=== PATIENT | female | born 1945 | race Caucasian/White ===

== ENCOUNTER 2017-11-26 16:41 | Emergency (ER) | payer MEDICARE, OTHER ==
[~2017-11-26] VITALS: Ht 167.6 cm; Wt 93.4 kg
[~2017-11-26 16:41] MED LIST: CLONAZEPAM0.5 MG PO; DEXILANT60 MG PO; FLEXERIL10 MG PO; LISINOPRIL10 MG PO; NEXIUM40 MG PO; SUCRALFATE1 GM PO; TEGRETOL100 MG PO; TEGRETOL200 MG PO
--- OUTSIDE RECORDS SUMMARY | 2017-11-26 16:45 | XMS REPORT | Summary of Care ---
Author Author JEFF Seo, ALEKS Organization Unknown Address Unknown Phone Unavailable Care Team Providers Care Benefit Authorizer Name Role Phone ALEKS HOUSTON M.D. Unavailable Unavailable VEE MÉNEDZ Unavailable Unavailable Aleks Houston MD Unavailable Unavailable Unavailable Unavailable Functional Status Name Dates Details Functional status health issues are not documented Status: Name Dates Details Cognitive status health issues are not documented Status: Problems Name Dates Details History of hypertension (V12.59, Z86.79) Status: Active Cancer screening (V76.9, Z12.9) Status: Active Multiple gastric polyps (211.1, K31.7) Status: Active Colon cancer screening (V76.51, Z12.11) Status: Active Indigestion (536.8, K30) Status: Active Acute gastroenteritis (558.9, K52.9) Status: Active Esophageal stricture (530.3, K22.2) Status: Active Hiatal hernia (553.3, K44.9) Status: Active Genitourinary symptoms (788.99, R39.9) Status: Active Skin neoplasm (239.2, D49.2) Status: Active Anxiety (300.00, F41.9) Status: Active Tachycardia (785.0, R00.0) Status: Active Elevated blood pressure reading without diagnosis of hypertension (796.2, R03.0 ) Status: Active Dislocated knee (836.50, S83.106A) Status: Active Urinary tract infection (599.0, N39.0) Status: Active Flu vaccine need (V04.81, Z23) Status: Active Need for Streptococcus pneumoniae vaccination (V03.82, Z23) Status: Active Bilateral breast cysts (610.0, N60.01) Status: Active Visit for screening mammogram (V76.12, Z12.31) Status: Active Need for influenza vaccination (V04.81, Z23) Status: Active Well female exam with routine gynecological exam (V72.31, Z01.419) Status: Active Vaginal discharge (623.5, N89.8) Status: Active Abdominal pain, chronic, bilateral lower quadrant (789.03, R10.31) Status: Active Controlled type 2 diabetes mellitus without complication (250.00, E11.9) Status: Active Elevated liver enzymes (790.5, R74.8) Status: Active Cough (786.2, R05) Status: Active Influenza A (H5N1) (488.02, J09.X2) Status: Active Allergic bronchitis (493.90, J45.909) Status: Active UTI symptoms (788.99, R39.9) Status: Active Insomnia (780.52, G47.00) Status: Active Osteoporosis (733.00, M81.0) Status: Active Back pain (724.5, M54.9) Status: Active Dysuria (788.1, R30.0) Status: Active Sea sickness (994.6, T75.3XXA) Status: Active Obesity (BMI 30-39.9) (278.00, E66.9) Status: Active Medications Name Dates Details Lisinopril 20 MG Oral Tablet TAKE 1 TABLET DAILY FOR BLOOD PRESSURE. Quantity: 90 ALEKS HOUSTON M.D. * Start : 20-Dec-2016 Active 90 Tablet Bottle Zolpidem Tartrate 10 MG Oral Tablet TAKE 1 TABLET AT BEDTIME NEEDED FOR SLEEP. * Quantity: 30 Refills: 2 ALEKS HOUSTON M.D. * Start : 20-Dec-2016 Active Dexilant 60 MG Oral Capsule Delayed Release take 1 pill bid * Refills: 0 * Start : 20-Dec-2016 Active Hyoscyamine Sulfate 0.125 MG Sublingual Tablet Sublingual DISSOLVE 1 TABLET UNDER THE TONGUE THREE TIMES DAILY NEEDED * Quantity: 30 Refills: 0 ALEKS HOUSTON M.D. * Start : 21-May-2017 Active Phenazopyridine HCl TABS * Refills: 0 Active ALPRAZolam 0.25 MG Oral Tablet 1/2 to 1 1 PO BID PRN ANXIETY * Quantity: 15 Refills: 0 CAMILA VEE Pollard * Start : 22-Feb-2017 Active Vitamin D CAPS * Refills: 0 Active Promethazine-Codeine 6.25-10 MG/5ML Oral Syrup 5ml every 4 to 6 hours for severe cough * Quantity: 240 Refills: 0 ALEKS HOUSTON M.D. * Start : 05-Apr-2017 Active Scopolamine 1 MG/3DAYS Transdermal Patch 72 Hour APPLY 1 PATCH EVERY 3 DAYS * Quantity: 1 Refills: 0 ALEKS HOUSTON M.D. * Start : 26-Apr-2017 Active 4 Patch Box Nitrofurantoin Monohyd Macro 100 MG Oral Capsule TAKE 1 CAPSULE TWICE DAILY UNTIL GONE. * Quantity: 20 Refills: 1 ALEKS HOUSTON M.D. * Start : 18-Jun-2017 End : 13-Nov-2017 Active TraMADol HCl - 50 MG Oral Tablet TAKE 1 TABLET TWICE DAILY NEEDED. * Quantity: 30 Refills: 1 ALEKS HOUSTON M.D. * Start : 09-Oct-2017 Active Nortriptyline HCl - 25 MG Oral Capsule TAKE 1 OR 2 CAPSULE IN EVENING OR AT BEDTIME. * Quantity: 30 Refills: 0 ALEKS HOUSTON M.D. * Start : 09-Oct-2017 Active Estradiol 0.1 MG/GM Vaginal Cream APPLY A PEA-SIZED AMOUNT TO VAGINAL OPENING EVERY SUNDAY, SUNDAY, AND SUNDAY EVENING. * Quantity: 1 Refills: 2 ALEKS HOUSTON M.D. * Start : 12-Oct-2017 Active 42.5 GM Tube Allergies and Adverse Reactions Name Dates Details Sulfa Drugs (Allergy) Status: Active Past Medical History Name Dates Details History of gastritis (V12.79, Z87.19) Status: Resolved History of hypertension (V12.59, Z86.79) Status: Resolved History of insomnia (V13.89, Z87.898) Status: Resolved Procedures Procedure Dates Details [QL] PTH, INTACT (WITHOUT CALCIUM) Date: 12-Oct-2017 History of Appendectomy Completed History of Tonsillectomy Completed History of Hysterectomy Completed History of Gallbladder surgery Completed History of Gastric bypass surgery Completed Immunization Name Dates Details Fluzone Quadrivalent 0.5 ML Intramuscular Suspension Prefilled Syringe Lot #: [id number] on: 26-Jul-2017 Prevnar 13 Intramuscular Suspension Lot #: [id number] on: 26-Jul-2017 Family History Name Dates Details Family history of hyperparathyroidism (V18.19, Z83.49) Status: Active Name Dates Details Family history of hyperparathyroidism (V18.19, Z83.49) Status: Active Name Dates Details Family history of alcoholism (V17.0, Z81.1) Status: Active Name Dates Details Family history of hyperparathyroidism (V18.19, Z83.49) Status: Active Name Dates Details Family history of diabetes mellitus (V18.0, Z83.3) Status: Active Social History Name Dates Details - Status: Name Dates Details Never smoker Vital Signs Date Test Result Details :39 BP Systolic 147 mm[Hg] Status: Comments: Location: LUE; Position: Sitting BP Diastolic 97 mm[Hg] Status: Comments: Location: LUE; Position: Sitting Height 64 in Status: Weight 225 lb Status: Body Mass Index Calculated 38.62 kg/m2 Status: Body Surface Area Calculated 2.06 m2 Status: Heart Rate 120 /min Status: Temperature 97.2 f Status: Comments: Method: Temporal Respiration Rate 16 /min Status: [id number] BP Systolic 157 mm[Hg] Status: Comments: Location: LUE; Position: Sitting BP Diastolic 96 mm[Hg] Status: Comments: Location: LUE; Position: Sitting Height 64 in Status: Weight 226 lb Status: Body Mass Index Calculated 38.79 kg/m2 Status: Body Surface Area Calculated 2.06 m2 Status: Heart Rate 113 /min Status: Temperature 97.6 f Status: Comments: Method: Temporal Respiration Rate 16 /min Status: Results Date Description Value Details :00 [[facility]] CULTURE, URINE, ROUTINE Urine Culture, Routine Final report Result 1 Comments: Mixed urogenital flora10,000-25,000 colony forming units per mL Plan of Care Name Dates Details Planned Observations Planned Goals not documented Interventions Provided Medication Changes* Zolpidem Tartrate 10 MG Oral Tablet - Renew Instructions Name Dates Details Instructions not documented Encounters Appointment; ALEKS HOUSTON M.D. Encounter Diagnosis: Problem not documented On: 20-Dec-2016 14:30 Appointment; ALEKS HOUSTON M.D. Encounter Diagnosis: Problem not documented On: 03-Jan-2017 13:30 Appointment; ALEKS HOUSTON M.D. Encounter Diagnosis: Problem not documented On: 07-Feb-2017 14:45 Appointment; VEE JENSEN P.A. Encounter Diagnosis: Problem not documented On: 22-Feb-2017 13:30 Appointment; VEE JNESEN P.A. Encounter Diagnosis: Problem not documented On: 28-Feb-2017 14:00 Appointment; ALEKS HOUSTON M.D. Encounter Diagnosis: Problem not documented On: 05-Apr-2017 13:00 Appointment; ALEKS HOUSTON M.D. Encounter Diagnosis: Problem not documented On: 26-Apr-2017 15:30 Appointment; ALEKS HOUSTON M.D. Encounter Diagnosis: Problem not documented On: 08-May-2017 15:30 Appointment; ALEKS HOUSTON M.D. Encounter Diagnosis: Problem not documented On: 18-Jun-2017 15:00 Appointment; ALEKS HOUSTON M.D. Encounter Diagnosis: Problem not documented On: 26-Jul-2017 12:15 Appointment; RG BARNES NP Encounter Diagnosis: Problem not documented On: 07-Aug-2017 14:15 Appointment; ALEKS HOUSTON M.D. Encounter Diagnosis: Problem not documented On: 17-Aug-2017 15:30 Appointment; ALEKS HOUSTON M.D. Encounter Diagnosis: Problem not documented On: 12-Sep-2017 15:30 Appointment; ALEKS HOUSTON M.D. Encounter Diagnosis: Problem not documented On: 09-Oct-2017 15:30 Appointment; ALEKS HOUSTON M.D. Encounter Diagnosis: Problem not documented On: 12-Oct-2017 15:00 Appointment; ALEKS HOUSTON M.D. Encounter Diagnosis: Problem not documented On: 24-Oct-2017 15:30
[2017-11-26] MEDS ORDERED: ASPIRIN 81 MG CHEW TAB PO ONE (17:30)
[2017-11-26 22:01] LABS: HEMATOCRIT 43.4 % (34.2-44.1); HEMOGLOBIN 14.9 g/dL (12.0-16.0); MEAN CORPUSCULAR HEMOGLOBIN 31.3 pg (28-32); MEAN CORPUSCULAR HGB CONC 34.3 g/dL (31-35); MEAN CORPUSCULAR VOLUME 91.2 fL (81-99); NEUTROPHILS % 6.4 % (38.7-80.0); PLATELET COUNT 250 x10e3/uL (140-360); RED BLOOD COUNT 4.76 x10e6/uL (3.6-5.1); RED CELL DISTRIBUTION WIDTH 12.9 % (11.7-14.4)
[2017-11-26 22:02] LABS: BASOPHILS % 0.1 % (0.0-1.0); EOSINOPHILS % 0.2 % (0.0-6.0); INR 1.14; MONOCYTES % 0.7 % (4.4-11.3); PARTIAL THROMBOPLASTIN TIME 26.3 seconds (23.8-35.5); PROTHROMBIN TIME 13.7 seconds (11.9-14.5)
[2017-11-26 22:03] LABS: ANION GAP 13.2 mmol/L (8-16); BILIRUBIN,URINE NEGATIVE (NEGATIVE); BLOOD UREA NITROGEN 11 mg/dL (7-26); BUN/CREATININE RATIO 14 (6-25); CARBON DIOXIDE 24 mmol/L (22-29); CHLORIDE 109 mmol/L (98-107); CLARITY,URINE CLEAR (CLEAR); COLOR,URINE YELLOW (YELLOW); CREATININE, SERUM 0.78 mg/dL (0.57-1.11); EPITHELIAL CELLS,URINE MODERATE /LPF; EST GLOMERULAR FILTRATION RATE > 60 ML/MIN (60-); GLUCOSE 136 mg/dL (74-118); KETONES,URINE NEGATIVE (NEGATIVE); LEUKOCYTE ESTERASE ,URINE NEGATIVE (NEGATIVE); NITRITE,URINE NEGATIVE (NEGATIVE); POTASSIUM 4.2 mmol/L (3.5-5.1); PROTEIN,URINE DIPSTICK NEGATIVE (NEGATIVE); SODIUM 142 mmol/L (136-145); URINE UROBILINOGEN 0.2 mg/dL (0.2 - 1)
[2017-11-26 22:04] LABS: ALANINE AMINOTRANSFERASE 75 IU/L (0-55); ALBUMIN 4.3 g/dL (3.5-5.0); ALBUMIN/GLOBULIN RATIO 1.5 (0.8-2.0); ALKALINE PHOSPHATASE 99 IU/L (40-150); CALCIUM 9.9 mg/dL (8.4-10.2); CREATINE KINASE 35 IU/L (29-168)
--- NOTE | 2017-11-26 23:02 | Diagnostic Imaging Report ---
EXAM: CHEST SINGLE (PORTABLE), AP 1 view INDICATION: Chest pain COMPARISON: None FINDINGS: LINES/TUBES: None LUNGS: No consolidations or edema. PLEURA: No effusions or pneumothorax. HEART AND MEDIASTINUM: Normal size and contour. BONES AND SOFT TISSUES: No acute findings. IMPRESSION: No acute thoracic abnormality. Signed by: Dr. Mere Vanegas M.D. on 11/26/2017 10:58 PM
== END 2017-11-26 20:57 | disposition home or self-care (01) ==
LOC: ER 16:41
DX: R42 Dizziness and giddiness (principal); R53.1 Weakness
CPT/HCPCS: 36415; 71045; 80053; 81001; 82550; 82553; 83880; 84484; 85025; 85610; 85730; 93005; 99284

== ENCOUNTER 2017-12-24 23:18 | Emergency (ER) | payer MEDICARE ==
[~2017-12-24] VITALS: Ht 167.6 cm; Wt 93.4 kg
[2017-12-24] MEDS ORDERED: TRAMADOL HCL 50 MG TAB PO ONE (23:45)
[2017-12-24] MEDS ORDERED: KETOROLAC TROMETHAMINE 60 MG/2 ML VIAL IM ONE (23:45)
--- NOTE | 2017-12-25 00:27 | Diagnostic Imaging Report ---
SHOULDER LEFT COMPLETE Comparison: None Clinical history: Pain Findings: No fracture or dislocation. Mild acromioclavicular degenerative changes. Impression: No acute bony abnormality Signed by: Dr Shruti Adair MD on 12/25/2017 12:24 AM
[2017-12-25 01:53] VITALS: BP 141/88
== END 2017-12-25 02:08 | disposition home or self-care (01) ==
LOC: ER 23:18
DX: S43.421A Sprain of right rotator cuff capsule, initial encounter (principal); X50.1XXA Overexertion from prolonged static or awkward postures, initial encounter; Y92.531 Health care provider office as the place of occurrence of the external cause; I10 Essential (primary) hypertension; K21.9 Gastro-esophageal reflux disease without esophagitis; Z98.84 Bariatric surgery status
CPT/HCPCS: 73030; 93005; 96372; 99283; J1885

== ENCOUNTER 2018-07-03 14:56 | Emergency (ER) | payer MEDICARE ==
[~2018-07-03] VITALS: Ht 165.1 cm; Wt 88.5 kg
--- OUTSIDE RECORDS SUMMARY | 2018-07-03 14:58 | XMS REPORT | Continuity of Care Document ---
Author Author [facility] Interface Address Unknown Phone Unavailable Problems Problem Status Onset Date Classification Date Reported Comments Source Medications Medication Details Route Status Patient Instructions Ordering Provider Order Date Source Carbamazepine (Tegretol) 100 Mg Tab.chew Three Times A Day Formerly [facility] Carbamazepine (Tegretol) 200 Mg Tablet Three Times A Day [facility] Clonazepam 0.5 Mg Tablet as needed [facility] Cyclobenzaprine Hcl (Flexeril) 10 Mg Tablet Daily [facility] Dexlansoprazole (Dexilant) 60 Mg Cap. Daily [facility] Esomeprazole Magnesium (Nexium) 40 Mg Capsule.dr Pace Active [facility] Lisinopril 10 Mg Tablet Daily Active [facility] Sucralfate 1 Gm Tablet Four Times Daily [facility] Allergies, Adverse Reactions, Alerts Substance Category Reaction Severity Reaction type Status Date Reported Comments Source Sulfa (Sulfonamide Antibiotics) "COMA" Severe Allergy to Substance Active 11/26/2017 [facility] Immunizations Immunization Date Given Site Status Last Updated Comments Source Results Order Name Results Value Reference Range Date Interpretation Comments Source Activated partial thromboplastin time (aPTT) in platelet poor plasma bycoagulation assay Activated partial thromboplastin time (aPTT) in platelet poor plasma bycoagulation assay 26.3 23.8 - 35.5 11/26/2017 [facility] Automated blood basophil count as percentage of total leukocytes Automated blood basophil count as percentage of total leukocytes 0.1 0.0 - 1.0 11/26/2017 [facility] Automated blood eosinophil count as percentage of total leukocytes Automated blood eosinophil count as percentage of total leukocytes 0.2 0.0 - 6.0 11/26/2017 [facility] Automated blood hematocrit (volume fraction) Automated blood hematocrit (volume fraction) 43.4 34.2 - 44.1 11/26/2017 [facility] Automated blood lymphocyte count as percentage ot total leukocytes Automated blood lymphocyte count as percentage ot total leukocytes 1.0 18.0 - 39.1 11/26/2017 [facility] Automated blood monocyte count as percentage of total leukocytes Automated blood monocyte count as percentage of total leukocytes 0.7 4.4 - 11.3 11/26/2017 [facility] Automated blood platelet count (count/volume) Automated blood platelet count (count/volume) 250 140 - 360 11/26/2017 [facility] Automated blood segmented neutrophil count as percentage of total leukocytes Automated blood segmented neutrophil count as percentage of total leukocytes 6.4 38.7 - 80.0 11/26/2017 [facility] Automated erythrocyte mean corpuscular hemoglobin (mass per erythrocyte) Automated erythrocyte mean corpuscular hemoglobin (mass per erythrocyte) 31.3 28 - 32 11/26/2017 [facility] Automated erythrocyte mean corpuscular hemoglobin concentration measurement (mass/volume) Automated erythrocyte mean corpuscular hemoglobin concentration measurement (mass/volume) 34.3 31 - 35 11/26/2017 [facility] Automated erythrocyte mean corpuscular volume Automated erythrocyte mean corpuscular volume 91.2 81 - 99 11/26/2017 [facility] Automated urine sediment leukocyte count by microscopy (number/high power field) Automated urine sediment leukocyte count by microscopy (number/high power field) NONE 0 - 5 11/26/2017 [facility] Bacteria detection in urine sediment by light microscopy Bacteria detection in urine sediment by light microscopy NONE NONE 11/26/2017 [facility] Blood erythrocytes automated count (number/volume) Blood erythrocytes automated count (number/volume) 4.76 3.6 - 5.1 11/26/2017 [facility] Blood hemoglobin measurement (moles/volume) Blood hemoglobin measurement (moles/volume) 14.9 12.0 - 16.0 11/26/2017 [facility] Blood leukocytes automated count (number/volume) Blood leukocytes automated count (number/volume) 8.36 4.8 - 10.8 11/26/2017 [facility] Epithelial cells detection in urine sediment by light microscopy Epithelial cells detection in urine sediment by light microscopy MODERATE NONE 11/26/2017 [facility] Erythrocytes detection in urine sediment by light microscopy Erythrocytes detection in urine sediment by light microscopy NONE 0 - 5 11/26/2017 [facility] Estimated glomerular filtration rate (GFR) determination Estimated glomerular filtration rate (GFR) determination null 60 11/26/2017 [facility] Glucose measurement Glucose measurement 136 74 - 118 11/26/2017 [facility] INR in Platelet poor plasma by Coagulation assay INR in Platelet poor plasma by Coagulation assay 1.14 11/26/2017 [facility] Plasma globulin measurement (mass/volume) Plasma globulin measurement (mass/volume) 2.9 2.3 - 3.5 11/26/2017 [facility] Prothrombin time (PT) in platelet poor plasma by coagulation assay Prothrombin time (PT) in platelet poor plasma by coagulation assay 13.7 11.9 - 14.5 11/26/2017 [facility] Serum or plasma alanine aminotransferase measurement (enzymatic activity/volume) Serum or plasma alanine aminotransferase measurement (enzymatic activity/volume) 75 0 - 55 11/26/2017 [facility] Serum or plasma albumin measurement (mass/volume) Serum or plasma albumin measurement (mass/volume) 4.3 3.5 - 5.0 11/26/2017 [facility] Serum or plasma albumin/globulin mass ratio Serum or plasma albumin/globulin mass ratio 1.5 0.8 - 2.0 11/26/2017 [facility] Serum or plasma alkaline phosphatase measurement (enzymatic activity/volume) Serum or plasma alkaline phosphatase measurement (enzymatic activity/volume) 99 40 - 150 11/26/2017 [facility] Serum or plasma anion gap Serum or plasma anion gap 13.2 8 - 16 11/26/2017 [facility] Serum or plasma calcium measurement (mass/volume) Serum or plasma calcium measurement (mass/volume) 9.9 8.4 - 10.2 11/26/2017 [facility] Serum or plasma carbon dioxide, total measurement (moles/volume) Serum or plasma carbon dioxide, total measurement (moles/volume) 24 22 - 29 11/26/2017 [facility] Serum or plasma chloride measurement (moles/volume) Serum or plasma chloride measurement (moles/volume) 109 98 - 107 11/26/2017 [facility] Serum or plasma creatine kinase MB measurement (mass/volume) Serum or plasma creatine kinase MB measurement (mass/volume) 0.60 0 - 5.0 11/26/2017 [facility] Serum or plasma creatine kinase measurement (enzymatic activity/volume) Serum or plasma creatine kinase measurement (enzymatic activity/volume) 35 29 - 168 11/26/2017 [facility] Serum or plasma creatinine measurement (mass/volume) Serum or plasma creatinine measurement (mass/volume) 0.78 0.57 - 1.11 11/26/2017 [facility] Serum or plasma potassium measurement (moles/volume) Serum or plasma potassium measurement (moles/volume) 4.2 3.5 - 5.1 11/26/2017 [facility] Serum or plasma protein measurement (mass/volume) Serum or plasma protein measurement (mass/volume) 7.2 6.5 - 8.1 11/26/2017 [facility] Serum or plasma sodium measurement (moles/volume) Serum or plasma sodium measurement (moles/volume) 142 136 - 145 11/26/2017 [facility] Serum or plasma total bilirubin measurement (mass/volume) Serum or plasma total bilirubin measurement (mass/volume) 0.7 0.2 - 1.2 11/26/2017 [facility] Serum or plasma urea nitrogen measurement (mass/volume) Serum or plasma urea nitrogen measurement (mass/volume) 11 7 - 26 11/26/2017 [facility] Serum or plasma urea nitrogen/creatinine mass ratio Serum or plasma urea nitrogen/creatinine mass ratio 14 6 - 25 11/26/2017 [facility] Specific gravity of Urine by Test strip Specific gravity of Urine by Test strip 1.015 1.010 - 1.025 11/26/2017 [facility] Troponin I measurement by highly sensitive enzyme immunoassay Troponin I measurement by highly sensitive enzyme immunoassay null 0 - 0.300 11/26/2017 [facility] Urine clarity Urine clarity CLEAR CLEAR 11/26/2017 [facility] Urine color determination Urine color determination YELLOW YELLOW 11/26/2017 [facility] Urine erythrocytes detection Urine erythrocytes detection NEGATIVE NEGATIVE 11/26/2017 [facility] Urine glucose detection Urine glucose detection NEGATIVE NEGATIVE 11/26/2017 [facility] Urine ketones detection by automated test strip Urine ketones detection by automated test strip NEGATIVE NEGATIVE 11/26/2017 [facility] Urine leukocyte esterase detection by dipstick Urine leukocyte esterase detection by dipstick NEGATIVE NEGATIVE 11/26/2017 [facility] Urine nitrite detection Urine nitrite detection NEGATIVE NEGATIVE 11/26/2017 [facility] Urine pH measurement by automated test strip Urine pH measurement by automated test strip 5 5 - 7 11/26/2017 [facility] Urine protein measurement by test strip (mass/volume) Urine protein measurement by test strip (mass/volume) NEGATIVE NEGATIVE 11/26/2017 [facility] Urine total bilirubin measurement (mass/volume) Urine total bilirubin measurement (mass/volume) NEGATIVE NEGATIVE 11/26/2017 [facility] Urine urobilinogen measurement by test strip (mass/volume) Urine urobilinogen measurement by test strip (mass/volume) 0.2 0.2 - 1 11/26/2017 [facility] Red Cell Distribution Width 12.9 11.7 - 14.4 11/26/2017 [facility] IM GRANULOCYTES % 0.0 0.0 - 1.0 11/26/2017 [facility] Aspartate Amino Transf (AST/SGOT) 59 5 - 34 11/26/2017 [facility] B-Type Natriuretic Peptide 19.4 0 - 100 11/26/2017 [facility] Vital Signs Vital Sign Value Date Comments Source Encounters Location Location Details Encounter Type Encounter Number Reason For Visit Attending Provider ADM Date DC Date Status Source Departed Emergency Room [id number] ANNA WATT MD 11/26/2017 11/26/2017 [facility] Departed Emergency Room [id number] GUILLERMO BEY MD 12/24/2017 12/25/2017 [facility] Procedures Procedure Code Date Perfomer Comments Source
--- OUTSIDE RECORDS SUMMARY | 2018-07-03 14:59 | XMS REPORT | Summary of Care ---
Author Author EVE Stokes, DAVID Organization Unknown Address Unknown Phone Unavailable Care Team Providers Care Carpet Repairer Name Role Phone MOLLY Ordonez, RG Unavailable Unavailable EVE Stokes, DAVID Unavailable Unavailable CAMILA P.A., VEE Unavailable Unavailable RAMONA Seo, MOUSTAFA Unavailable Unavailable YOUSIF MENDEZ, ROSIE Webster Unavailable Unavailable JEFF Seo, ROBYN Unavailable Unavailable EVE [facility] [place], DAVID Unavailable Unavailable RAMONA MENDEZ [place], MOUSTVARGAS Unavailable Unavailable Unavailable Unavailable Functional Status Name Dates Details Functional status health issues are not documented Status: Name Dates Details Cognitive status health issues are not documented Status: Problems Name Dates Details Cancer screening (V76.9, Z12.9) Status: Active Multiple gastric polyps (211.1, K31.7) Status: Active Colon cancer screening (V76.51, Z12.11) Status: Active Esophageal stricture (530.3, K22.2) Status: Active Hiatal hernia (553.3, K44.9) Status: Active Elevated blood pressure reading without diagnosis of hypertension (796.2, R03.0) Status: Active Flu vaccine need (V04.81, Z23) Status: Active Need for Streptococcus pneumoniae vaccination (V03.82, Z23) Status: Active Bilateral breast cysts (610.0, N60.01) Status: Active Visit for screening mammogram (V76.12, Z12.31) Status: Active Well female exam with routine gynecological exam (V72.31, Z01.419) Status: Active Elevated liver enzymes (790.5, R74.8) Status: Active Anxiety (300.00, F41.9) Status: Active Obesity (BMI 30-39.9) (278.00, E66.9) Status: Active S/P bariatric surgery (V45.86, Z98.84) Status: Active Osteoporosis (733.00, M81.0) Status: Active Need for influenza vaccination (V04.81, Z23) Status: Active Dysuria (788.1, R30.0) Status: Active Need for hepatitis C screening test (V73.89, Z11.59) Status: Active Need for Tdap vaccination (V06.1, Z23) Status: Active Need for zoster vaccination (V04.89, Z23) Status: Active Skin lesion (709.9, L98.9) Status: Active Abdominal pain, chronic, bilateral lower quadrant (789.03, R10.31) Status: Active Back pain, unspecified back location, unspecified back pain laterality, unspecified chronicity (724.5, M54.9) Status: Active Genitourinary symptoms (788.99, R39.9) Status: Active Bladder spasm (596.89, N32.89) Status: Active Urinary tract infection (599.0, N39.0) Status: Active Essential (primary) hypertension (401.9, I10) Status: Active Arthralgia of multiple sites (719.49, M25.50) Status: Active Controlled type 2 diabetes mellitus without complication (250.00, E11.9) Status: Active Lumbar facet arthropathy (721.3, M47.816) Status: Active Lumbar radicular pain (724.4, M54.16) Status: Active Osteoarthritis of spine (721.90, M47.9) Status: Active Chronic back pain (724.5, M54.9) Status: Active Insomnia (780.52, G47.00) Status: Active Osteoarthritis (715.90, M19.90) Status: Active Hypertension, unspecified type (401.9, I10) Status: Active Ulcer (707.9) Status: Active Medications Name Dates Details Lisinopril 20 MG Oral Tablet TAKE 1 TABLET DAILY FOR BLOOD PRESSURE. Quantity: 90 YEH D.O., KIKI-TEETEE * Start : 20-Dec-2016 Active 90 Tablet Bottle Zolpidem Tartrate 10 MG Oral Tablet TAKE 1 TABLET AT BEDTIME NEEDED FOR SLEEP. * Quantity: 30 Refills: 2 YEH D.O., KIKI-TEETEE * Start : 20-Dec-2016 Active Dexilant 60 MG Oral Capsule Delayed Release take 1 pill bid * Quantity: 180 Refills: 1 YEH D.O., DAVID * Start : 20-Dec-2016 Active Vitamin D CAPS * Refills: 0 R.N. Active PredniSONE 10 MG Oral Tablet Take 2 tablets twice a day for 7 days then 1 tablet twice a day for 7 days * Quantity: 42 Refills: 0 YEH D.O., DAVID * Start : 05-Apr-2017 Active Amoxicillin 875 MG Oral Tablet TAKE 1 TABLET EVERY 12 HOURS DAILY. * Quantity: 10 Refills: 0 YEH D.O., KIKI-TEETEE * Start : 09-Oct-2017 Active Shingrix 50 MCG Intramuscular Suspension Reconstituted Administer at pharmacy as directed * Quantity: 1 Refills: 0 CAMILA P.A., VEE * Start : 04-Apr-2018 Active Tdap (Adacel) Inject at pharmacy as directed * Quantity: 1 Refills: 0 CAMILA P.A., VEE * Start : 04-Apr-2018 Active 0.5 ML Syringe Oxytrol 3.9 MG/24HR Transdermal Patch Twice Weekly 1 Patch applied to SKIN TWICE A WEEK * Quantity: 1 Refills: 5 YEH D.O., DAVID * Start : 06-May-2018 Active 8 Patch Box Elmiron 100 MG Oral Capsule TAKE 1 CAPSULE 3 TIMES DAILY BEFORE MEALS. * Quantity: 30 Refills: 0 MOLLY Cardoza.PRG Ortiz * Start : 10-May-2018 Active Acetaminophen-Codeine #3 300-30 MG Oral Tablet TAKE 1 TABLET 4 TIMES DAILY NEEDED FOR PAIN. * Quantity: 40 Refills: 0 YEH D.O., DAVID * Start : 11-Jun-2018 Active PredniSONE 10 MG Oral Tablet TAKE 4 TABLETS DAILY FOR 3 DAYS,3 TABLETS DAILY FOR 3 DAYS, 2 TABLETS DAILY FOR 3 DAYS AND 1 TABLET DAILY FOR 3 DAYS, THEN STOP. * Quantity: 30 Refills: 0 YEH D.O., DAVID * Start : 11-Jun-2018 Active Nortriptyline HCl - 25 MG Oral Capsule TAKE 1 CAPSULE AT BEDTIME. * Quantity: 30 Refills: 2 ASHLEIGH GREENE M.D.AFA * Start : 24-Jun-2018 Active Gabapentin 100 MG Oral Capsule SEE TITRATION SCHEDULE MDD AT COMPLETEION OF TITRATION 900MG * Quantity: 135 Refills: 0 AHMED M.D., MOUSTAFA * Start : 24-Jun-2018 Active DULoxetine HCl - 30 MG Oral Capsule Delayed Release Particles TAKE ONE CAPSULE BY MOUTH ONCE DAILY FOR 7 DAYS THEN 2 CAPSULES BY MOUTH ONCE DA SHANTA * Quantity: 53 Refills: 0 BLAINEMED Sintia., MOUSTAFA * Start : 24-Jun-2018 Active TraMADol HCl - 50 MG Oral Tablet TAKE 1 TABLET EVERY 8 HOURS NEEDED. * Quantity: 90 Refills: 0 BLAINEMED Sintia., MOUSTAFA * Start : 24-Jun-2018 Active Allergies and Adverse Reactions Name Dates Details Iodinated Contrast Media (Allergy) Status: Active Sulfa Drugs (Allergy) Status: Active Past Medical History Name Dates Details History of abdominal pain (V13.89, Z87.898) Status: Resolved History of Acute gastroenteritis (558.9, K52.9) Status: Resolved History of acute sinusitis (V12.69, Z87.09) Status: Resolved History of Allergic bronchitis (493.90, J45.909) Status: Resolved History of cough Status: Resolved History of dislocation of knee (V13.59, Z87.39) Status: Resolved History of dysuria (V13.00, Z87.898) Status: Resolved History of gastritis (V12.79, Z87.19) Status: Resolved History of indigestion (V12.79, Z87.19) Status: Resolved History of Influenza A (H5N1) (488.02, J09.X2) Status: Resolved History of insomnia (V1., Z87.898) Status: Resolved History of Sea sickness (994.6, T75.3XXA) Status: Resolved History of Shoulder strain, right, sequela (905.7, S46.911S) Status: Resolved History of Skin neoplasm (239.2, D49.2) Status: Resolved History of Strain of left shoulder, sequela (905.7, S46.912S) Status: Resolved History of tachycardia (V13.89, Z87.898) Status: Resolved History of UTI symptoms (788.99, R39.9) Status: Resolved History of vaginal discharge (V13.29, Z87.42) Status: Resolved Procedures Procedure Dates Details Physical Therapy Date: 24-Jun-2018 [QH] LIPID PANEL WITH REFLEX TO DIRECT LDL Date: 19-Jun-2018 [QLH] SJOGRENS ANTIBODIES (SS-A,SS-B) Date: 19-Jun-2018 [Q] DRUG ABUSE PANEL 9-50 Date: 24-Jun-2018 History of Appendectomy Completed History of Tonsillectomy Completed History of Hysterectomy Completed History of Gallbladder surgery Completed History of Gastric bypass surgery Completed Immunization Name Dates Details Fluzone Quadrivalent 0.5 ML Intramuscular Suspension Prefilled Syringe Lot #: [id number] on: 26-Jul-2017 Prevnar 13 Intramuscular Suspension Lot #: [id number] on: 26-Jul-2017 Fluzone High-Dose 0.5 ML Intramuscular Suspension Prefilled Syringe Lot #: [id number] on: 04-Apr-2018 Family History Name Dates Details Family history [...] - Status: Name Dates Details Never smoker Never smoker Vital Signs Date Test Result Details [id number]:15 BP Systolic 129 mm[Hg] Status: Comments: [place] [facility] [place]: Sitting BP Diastolic 83 mm[Hg] Status: Comments: [place] [facility] [place] Position: Sitting Height 64 in Status: Heart Rate 98 /min Status: 33-Sdp-177859:37 BP Systolic 145 mm[Hg] Status: Comments: Location: [facility]; Position: Sitting BP Diastolic 84 mm[Hg] Status: Comments: Location: E; Position: Sitting Height 64 in Status: Heart Rate 93 /min Status: Weight 225 lb Status: Body Mass Index Calculated 38.62 kg/m2 Status: Body Surface Area Calculated 2.06 m2 Status: Temperature 97.9 f Status: Comments: Method: Temporal Respiration Rate 16 /min Status: 2-Hwj-726157:49 BP Systolic 134 mm[Hg] Status: Comments: Location: E; Position: Sitting BP Diastolic 85 mm[Hg] Status: Comments: Location: [facility]; Position: Sitting Height 64 in Status: Heart Rate 111 /min Status: Weight 225 lb Status: Body Mass Index Calculated 38.62 kg/m2 Status: Body Surface Area Calculated 2.06 m2 Status: Temperature 98 f Status: Comments: Method: Temporal Respiration Rate 16 /min Status: Results Date Description Value Details :00 [[facility]] CULTURE, URINE, ROUTINE CULTURE (Abnormal) Comments: CULTURE, URINE, ROUTINE MICRO NUMBER: [id number] TEST STATUS: FINAL SPECIMEN SOURCE: URINE SPECIMEN QUALITY: ADEQUATE RESULT: 10,000-50,000 CFU/mL of Corynebacterium species May represent colonizers from external and internal genitalia. No further testing (including susceptibility) will be performed. COMMENT: Additional organism(s) less than 10,000 CFU/mL isolated. These organisms, commonly found on external and internal genitalia, are considered colonizers. No further testing performed. :00 [L] [id number] 9+Oxycodone+Cardiopulmonary Supervisor-Scr Comments: A duplicate report has been generated due to demographic updates.A duplicate report has been generated due to demographic updates.A duplicate report has been generated due to demographic updates.A duplicate report has been generated due to demographic updates.A duplicate report has been generated due to demographic updates.A duplicate report has been generated due to demographic updates.A duplicate re port has been generated due to demographic updates.A duplicate report has been generated due to demographic updates.A duplicate report has been generated due to demographic updates.A duplicate report has been generated due to demographic updates.A duplicate report has been generated due to demographic updates.A duplicate report has been generated due to demographic updates.A duplicate report has been generated due to demographic updates. Amphetamine Screen, Urine Negative ng/mL Range: Ocdaak=5041 Barbituates Screen, Urine Negative ng/mL Range: Qmnfwk=073 Benzodiazepines Screen, Urine Negative ng/mL Range: Joztsr=689 Cannabinoid Screen, Urine Negative ng/mL Range: Cutoff=20 Cocaine (Metab.) Screen, Urine Negative ng/mL Range: Lhcfyk=810 Opiate Screen, Urine Negative ng/mL Range: Ckebij=788 Comments: Opiate test includes Codeine, Morphine, Hydromorphone, Hydrocodone. Oxycodone/Oxymorphone, Urine Negative ng/mL Range: Dmhtsv=667 Comments: Test includes Oxycodone and Oxymorphone Phencyclidine Screen, Urine Negative ng/mL Range: Cutoff=25 Methadone Screen, Urine Negative ng/mL Range: Lgaalj=843 Propoxyphene Screen, Urine Negative ng/mL Range: Wrfcjn=716 Creatinine, Urine 68.1 mg/dL Range: 20.0-300.0 pH, Urine 5.3 Range: 4.5-8.9 Please Note: Comments: This assay provides a preliminary unconfirmed analytical testresult that may be suitable for clinical management of patientsin certain situations. Drug-test results should be interpretedin the context of clinical information. Patient metabolicvariables, specific drug chemistry, and specimencharacteristics can affect test outcome. Technical consultationis available if a test result is inconsistent with an expectedoutcome. (email- [email or web address] or call [phone]) 05-Lqf-93832:00 [L] Tramadol Tramadol Negative ng/mL Range: Uninrx=496 95-Qby-152037:54 [QLH] CMP W/EGFR Glucose 128 mg/dL (Above high threshold) Range: 65-99 BUN 11 mg/dL Range: 8-27 Creatinine 0.84 mg/dL Range: 0.57-1.00 eGFR If NonAfricn Am 71 mL/min/1.7 Range: >59 eGFR If Africn Am 81 mL/min/1.7 Range: >59 BUN/Creatinine Ratio 13 Range: 12-28 Sodium, Serum 145 mmol/L (Above high threshold) Range: 134-144 Potassium 4.4 mmol/L Range: 3.5-5.2 Chloride 110 mmol/L (Above high threshold) Range: 96-106 Carbon Dioxide, Total 22 mmol/L Range: 20-29 Calcium, Serum 8.9 mg/dL Range: 8.7-10.3 Protein, Total 6.2 g/dL Range: 6.0-8.5 Albumin 4.1 g/dL Range: 3.5-4.8 Globalulin, Total 2.1 g/dL Range: 1.5-4.5 A/G Ratio 2.0 Range: 1.2-2.2 Bilirubin, Total 0.6 mg/dL Range: 0.0-1.2 Alkaline Phosphatase 87 {IU/L} Range: 39-117 AST (SGOT) 46 {IU/L} (Above high threshold) Range: 0-40 ALT (SGPT) 46 {IU/L} (Above high threshold) Range: 0-32 :54 [QL] CBC (INCLUDES DIFF/PLT) WBC 6.7 {x10E3/uL} Range: 3.4-10.8 RBC 4.26 {x10E6/uL} Range: 3.77-5.28 Hemoglobin 13.4 g/dL Range: 11.1-15.9 Hematocrit 40.3 % Range: 34.0-46.6 MCV 95 fL Range: 79-97 MCH 31.5 pg Range: 26.6-33.0 MCHC 33.3 g/dL Range: 31.5-35.7 RDW 13.3 % Range: 12.3-15.4 Platelets 175 {x10E3/uL} Range: 150-379 Neutrophils 74 % Range: Not Estab. Lymphs 16 % Range: Not Estab. Monocytes 7 % Range: Not Estab. Eos 3 % Range: Not Estab. Basos 0 % Range: Not Estab. Immature Cells Neutrophils (Absolute) 4.9 {x10E3/uL} Range: 1.4-7.0 Lymphs (Absolute) 1.1 {x10E3/uL} Range: 0.7-3.1 Monocytes(Absolute) 0.5 {x10E3/uL} Range: 0.1-0.9 Eos (Absolute) 0.2 {x10E3/uL} Range: 0.0-0.4 Baso (Absolute) 0.0 {x10E3/uL} Range: 0.0-0.2 Immature Granulocytes 0 % Range: Not Estab. Immature Grans (Abs) 0.0 {x10E3/uL} Range: 0.0-0.1 NRBC Hematology Comments: 02-Nsb-482318:54 [QL] TAWNY PANEL, COMPREHENSIVE Anti-DNA (DS) Ab Qn <1 {IU/mL} Range: 0-9 Comments: Negative <5 Equivocal 5 - 9 Positive >9 DRAWER IN DOBBY LOOM Antibodies <0.2 {AI} Range: 0.0-0.9 Flower Antibodies <0.2 {AI} Range: 0.0-0.9 Anticlermoderma-70 Antibodies <0.2 {AI} Range: 0.0-0.9 Sjogrens Anti-SS-A <0.2 {AI} Range: 0.0-0.9 Sjogrens Anti-SS-B <0.2 {AI} Range: 0.0-0.9 Antichromatin Antibodies <0.2 {AI} Range: 0.0-0.9 Anti-Mireya-1 <0.2 {AI} Range: 0.0-0.9 Anti-Centromere B Antibodies <0.2 {AI} Range: 0.0-0.9 See below: Comments: Autoantibody Disease Association Condition Frequency ------ ---------Antinuclear Antibody, SLE, mixed connectiveDirect (TAWNY-D) tissue diseases ---------dsDNA SLE 40 - 60% ---------Chromatin Drug induced SLE 90% SLE 48 - 97% ---------SSA (Ro) SLE 25 - 35% Sjogren's Syndrome 40 - 70% Lupus 100% ---------SSB (La) SLE 10% Sjogren's Syndrome 30% ---------Sm (anti-Flower) SLE 15 - 30% ---------DRAWER IN DOBBY LOOM Mixed Connective Tissue Disease 95%(U1 nRNP, SLE 30 - 50%anti-ribonucleoprotein) P olymyositis and/or Dermatomyositis 20% ---------Scl-70 (antiDNA Scleroderma (diffuse) 20 - 35%topoisomerase) Crest 13% ---------Mireya-1 Polymyositis and/or Dermatomyositis 20 - 40% ---------Centromere B Scleroderma - Crest variant 80% :54 [[facility]] HEPATITIS PANEL Hep A Ab, IgM Negative Range: Negative HBsAg Screen Negative Range: Negative Hep B Core Ab, IgM Negative Range: Negative Hep C Virus Ab <0.1 {s/co_ratio} Range: 0.0-0.9 Comments: Negative: < 0.8 Indeterminate: 0.8 - 0.9 Positive: > 0.9 . The CDC recommends that a positive HCV antibody result be followed up with a HCV Nucleic Acid Amplification test ([id number]). :54 [QLH] MICROALBUMIN, RANDOM URINE (W/CREATININE) Creatinine, Urine 174.1 mg/dL Range: Not Estab. Microalbumin, Urine 10.0 ug/mL Range: Not Estab. Microalb/Creat Ratio 5.7 {mg/g_creat} Range: 0.0-30.0 Comments: Normal: 0.0 - 30.0 Albuminuria: 31.0 - 300.0 Clinical albuminuria: >300.0 21-Uhl-428096:54 [QL] HEMOGLOBIN A1c Hemoglobin A1c 5.6 % Range: 4.8-5.6 Comments: . Prediabetes: 5.7 - 6.4 Diabetes: >6.4 Glycemic control for adults with diabetes: <7.0 74-[id number]:54 [QL] RHEUMATOID FACTOR RA Latex Turbid. <10.0 {IU/mL} Range: 0.0-13.9 51-Qfi-975019:54 [[facility]] TSH, 3RD GENERATION W/REFLEX TO FT4 TSH 5.110 {uIU/mL} (Above high threshold) Range: 0.450-4.500 T4,Free (Direct) 1.67 ng/dL Range: 0.82-1.77 93-Qqb-083790:54 [QL] SED RATE BY MODIFIED WESTERGREN Sedimentation Rate-Westergren 4 {mm/hr} Range: 0-40 62-Xcn-707779:54 [[facility]] C-REACTIVE PROTEIN C-Reactive Protein, Quant 5.7 mg/L (Above high threshold) Range: 0.0-4.9 Plan of Care Name Dates Details Planned Observations Planned Goals not documented Planned Encounters Appointment; ELZA GREENE M.D. On: 22-Jul-2018 15:30 Interventions Provided Discussion/Summary* Labs WNL. No need for change in therapy. Instructions Name Dates Details Instructions not documented Encounters Appointment; ROBYN AGUILAR M.D. Encounter Diagnosis: Problem not documented On: 20-Dec-2016 14:30 Appointment; ROBYN AGUILAR M.D. Encounter Diagnosis: Problem not documented On: 03-Jan-2017 13:30 Appointment; ROBYN AGUILAR M.D. Encounter Diagnosis: Problem not documented On: 07-Feb-2017 14:45 Appointment; VEE JENSEN P.A. Encounter Diagnosis: Problem not documented On: 22-Feb-2017 13:30 Appointment; VEE JENSEN P.A. Encounter Diagnosis: Problem not documented On: 28-Feb-2017 14:00 Appointment; ROBYN AGUILAR M.D. Encounter Diagnosis: Problem not documented On: 05-Apr-2017 13:00 Appointment; ROBYN AGUILAR M.D. Encounter Diagnosis: Problem not documented On: 26-Apr-2017 15:30 Appointment; ROBYN AGUILAR M.D. Encounter Diagnosis: Problem not documented On: 08-May-2017 15:30 Appointment; ROBYN AGUILAR M.D. Encounter Diagnosis: Problem not documented On: 18-Jun-2017 15:00 Appointment; ROBYN AGUILAR M.D. Encounter Diagnosis: Problem not documented On: 26-Jul-2017 12:15 Appointment; RG BARNES NP Encounter Diagnosis: Problem not documented On: 07-Aug-2017 14:15 Appointment; ROBYN AGUILAR M.D. Encounter Diagnosis: Problem not documented On: 17-Aug-2017 15:30 Appointment; ROBYN AGUILAR M.D. Encounter Diagnosis: Problem not documented On: 12-Sep-2017 15:30 Appointment; ROBYN AGUILAR M.D. Encounter Diagnosis: Problem not documented On: 09-Oct-2017 15:30 Appointment; ROBYN AGUILAR M.D. Encounter Diagnosis: Problem not documented On: 12-Oct-2017 15:00 Appointment; ROBYN AGUILAR M.D. Encounter Diagnosis: Problem not documented On: 24-Oct-2017 15:30 Appointment; DAVID PRADO D.O. Encounter Diagnosis: Problem not documented On: 05-Dec-2017 15:15 Appointment; ROBYN AGUILAR M.D. Encounter Diagnosis: Problem not documented On: 13-Dec-2017 12:45 Appointment; ROBYN AGUILAR M.D. Encounter Diagnosis: Problem not documented On: 25-Dec-2017 13:00 Appointment; ROBYN AGUILAR M.D. Encounter Diagnosis: Problem not documented On: 31-Dec-2017 14:00 Appointment; ROBYN AGUILAR M.D. Encounter Diagnosis: Problem not documented On: 24-Jan-2018 15:30 Appointment; ROBYN AGUILAR M.D. Encounter Diagnosis: Problem not documented On: 05-Mar-2018 15:00 Appointment; VEE JENSEN P.A. Encounter Diagnosis: Problem not documented On: 04-Apr-2018 15:00 Appointment; DAVID PRADO D.O. Encounter Diagnosis: Problem not documented On: 22-Apr-2018 13:00 Appointment; DAVID PRADO D.O. Encounter Diagnosis: Problem not documented On: 06-May-2018 16:15 Appointment; RG BARNES NP Encounter Diagnosis: Problem not documented On: 10-May-2018 14:15 Appointment; MECHE ALLRED D.O. Encounter Diagnosis: Problem not documented On: 20-May-2018 14:00 Appointment; DAVID PRADO D.O. Encounter Diagnosis: Problem not documented On: 11-Jun-2018 14:30 Appointment; DAVID PRADO D.O. Encounter Diagnosis: Problem not documented On: 19-Jun-2018 15:30 Appointment; ELZA GREENE M.D. Encounter Diagnosis: Problem not documented On: 24-Jun-2018 15:00
[2018-07-03] MEDS ORDERED: SODIUM CHLORIDE 0.9% 1000ML 1,000 ML IV STA (18:40)
[2018-07-03 19:24] LABS: BASOPHILS % 0.2 % (0.0-1.0); EOSINOPHILS % 0.2 % (0.0-6.0); HEMATOCRIT 44.5 % (34.2-44.1); HEMOGLOBIN 15.2 g/dL (12.0-16.0); LYMPHOCYTES # (AUTO) 0.6 (1.0-3.2); LYMPHOCYTES % 5.1 % (18.0-39.1); MEAN CORPUSCULAR HEMOGLOBIN 30.8 pg (28-32); MEAN CORPUSCULAR HGB CONC 34.2 g/dL (31-35); MEAN CORPUSCULAR VOLUME 90.1 fL (81-99); MONOCYTES % 7.8 % (4.4-11.3); NEUTROPHILS # (AUTO) 10.9 (2.1-6.9); NEUTROPHILS % 86.3 % (38.7-80.0); PLATELET COUNT 222 x10e3/uL (140-360); RED BLOOD COUNT 4.94 x10e6/uL (3.6-5.1); RED CELL DISTRIBUTION WIDTH 12.6 % (11.7-14.4)
[2018-07-03 19:47] LABS: INR 1.11; PARTIAL THROMBOPLASTIN TIME 31.9 seconds (23.8-35.5); PROTHROMBIN TIME 15.3 seconds (11.9-14.5)
[2018-07-03 19:49] LABS: ALANINE AMINOTRANSFERASE 31 IU/L (0-55); ALBUMIN 3.6 g/dL (3.5-5.0); ALKALINE PHOSPHATASE 85 IU/L (40-150); BLOOD UREA NITROGEN 10 mg/dL (7-26); BUN/CREATININE RATIO 13 (6-25); CALCIUM 9.6 mg/dL (8.4-10.2); CARBON DIOXIDE 23 mmol/L (22-29); CHLORIDE 97 mmol/L (98-107); CREATINE KINASE 32 IU/L (29-168); CREATININE, SERUM 0.78 mg/dL (0.57-1.11); EST GLOMERULAR FILTRATION RATE > 60 ML/MIN (60-); GLUCOSE 141 mg/dL (74-118); MAGNESIUM 1.9 MG/DL (1.3-2.1); SODIUM 133 mmol/L (136-145)
[2018-07-03] MEDS ORDERED: HYDROCODONE/APAP 5MG-325MG TAB ONE (19:58)
[2018-07-03] MEDS ORDERED: HYDROCODONE/APAP 7.5MG-325MG 1 EA TAB PO ONE (20:00)
--- NOTE | 2018-07-03 20:01 | Diagnostic Imaging Report ---
EXAMINATION: Head CT without contrast. HISTORY:Headache, status post fall. COMPARISON: Report of CT brain from 09/22/2016, images are not available for comparison at the time of interpretation. TECHNIQUE: Multidetector axial images were obtained from the foramen magnum to the vertex without contrast. The images were reconstructed using brain and bone algorithms. Thin section brain images were reformatted into coronal and sagittal planes. Dose modulation, iterative reconstruction, and/or weight based adjustment of the mA/kV was utilized to reduce the radiation dose to as low as reasonably achievable. Intravenous contrast: None IMAGE QUALITY: Acceptable. FINDINGS: Skull/scalp: No lytic or blastic. lesions. No surgical changes. Incidental 2.2 cm occipital scalp lipoma. Parenchyma: Nonspecific few, scattered supratentorial white matter patchy hypodensity are likely related to small vessel ischemic changes. No acute hemorrhage, mass or acute major vascular territorial infarct. Arteries: No density suggestive of thrombosis. Dural sinuses: No abnormal density suggestive of thrombosis. Ventricles: No hydrocephalus or displacement. Extra-axial spaces: No abnormal density. Brain volume: Mild generalized cerebral volume loss. Craniocervical junction: No mass, Chiari malformation, or basilar invagination. Sella: No mass. Paranasal/mastoid sinuses: Imaged portions unremarkable. IMPRESSION: 1. No acute intracranial abnormality. 2. Mild generalized cerebral volume loss and mild supratentorial white matter microvascular ischemic changes. Signed by: Dr. Sue Valera M.D. on 07/03/2018 7:58 PM
--- NOTE | 2018-07-03 20:08 | Diagnostic Imaging Report ---
History: Fall, pain. Comparison studies: None Technique: Axial images were obtained through the cervical region.. Coronal and sagittal images reconstructed from the axial data. Dose modulation, iterative reconstruction, and/or weight based adjustment of the mA/kV was utilized to reduce the radiation dose to as low as reasonably achievable. Intravenous contrast: None Findings: Fractures: None. Soft tissue injuries: None. Atlantoaxial articulation: Intact. Alignment: Loss of normal cervical lordosis is either positional or due to muscle spasm.. No scoliosis. Cervicomedullary junction: No abnormalities. The foramen magnum is patent. Soft tissues: No abnormalities. Vertebrae: No fractures, infection or neoplasm. Degenerative changes: C3-C4: Posterior disc osteophyte complex without canal stenosis. Mild right foraminal stenosis due to facet and uncovertebral arthrosis. C4-C5: 1.5 mm grade 1 anterolisthesis. Moderate left foraminal stenosis due to facet and uncovertebral arthrosis. C5-C6: Mild degenerative disc disease. Posterior disc osteophyte complex results in mild canal stenosis. Mild bilateral foraminal stenosis due to uncovertebral arthrosis. C6-C7: Mild degenerative disc disease. Posterior disc osteophyte complex results in mild canal stenosis. Mild bilateral foraminal stenosis due to uncovertebral arthrosis.. IMPRESSION: 1. No acute cervical spine fracture or dislocation. Loss of normal cervical lordosis is either positional or due to muscle spasm. 2. Ligament, spinal cord and or vascular abnormalities cannot be excluded on the basis of this examination. 3. Cervical spondylosis as detailed above. Signed by: Dr. Sue Valera M.D. on 07/03/2018 8:05 PM
--- NOTE | 2018-07-03 20:08 | Diagnostic Imaging Report ---
PELVIS AP 1-2 VIEWS - 1 views HISTORY: Pain. Back pain. Fall. COMPARISON: None available. FINDINGS: Bones: No acute displaced fracture. Osseous alignment is within normal limits. 2 Punctate densities overlying bilateral pubic symphysis, possibly related to prior surgery. Joints: Unremarkable bilateral hips. Mild degenerative changes in the right SI joint. Moderate degenerative changes in the lower lumbar spine. Soft tissues: The soft tissues appear unremarkable. IMPRESSION: No acute radiographic abnormality. Signed by: Dr. Narendra Richards M.D. on 07/03/2018 8:05 PM
--- NOTE | 2018-07-03 20:09 | Diagnostic Imaging Report ---
EXAMINATION: CHEST SINGLE (NOT PORTABLE) INDICATION: Fall. Back Pain. COMPARISON: None FINDINGS: AP view TUBES and LINES: None. LUNGS: Lungs are not well inflated. Left lateral basilar atelectasis. Lungs are otherwise clear. There is no evidence of pneumonia or pulmonary edema. PLEURA: No pleural effusion or pneumothorax. HEART AND MEDIASTINUM: The cardiomediastinal silhouette is unremarkable. BONES AND SOFT TISSUES: No acute osseous lesion. Soft tissues are unremarkable. UPPER ABDOMEN: No free air under the diaphragm. IMPRESSION: No acute thoracic abnormality. Signed by: Dr. Narendra Richards M.D. on 07/03/2018 8:05 PM
--- NOTE | 2018-07-03 20:28 | Diagnostic Imaging Report ---
History: Fall, mid and lower back pain. Comparison studies: Report of X-ray thoracic and lumbar spine from 07/31/2016, images are not available for comparison at the time of interpretation. Technique:: Axial were obtained through the thoracic and lumbar regions. Coronal and sagittal images reconstructed from the axial data. Dose modulation, iterative reconstruction, and/or weight based adjustment of the mA/kV was utilized to reduce the radiation dose to as low as reasonably achievable. Intravenous contrast: None Findings: Alignment: Straightening of normal thoracic kyphosis. No scoliosis. Soft tissues: No abnormalities.. Paraspinal muscles: Fatty atrophy of posterior paraspinal muscles at level L5 and S1. Spinal cord: Can not be evaluated. Vertebrae: No fractures, infection or neoplasm . Thoracic degenerative changes: T8-T9: Facet arthrosis and thickened ligamentum flavum results in mild canal stenosis. Bilateral moderate foraminal stenosis. T9-T10: Facet arthrosis and thickened ligamentum flavum results in mild canal stenosis. Bilateral moderate foraminal stenosis. T10-T11: Disc bulge in combination with thickened ligamentum flavum and facet arthrosis results in mild canal stenosis. Severe right and moderate left foraminal stenosis. T11-T12: Bilateral facet arthrosis without significant canal stenosis. Mild degenerative disc disease with decreased intervertebral disc space, endplate sclerosis and anterior vertebral osteophyte. Moderate right foraminal stenosis. Lumbar degenerative changes: L1-L2: Mild degenerative disc disease. Disc bulge asymmetric to right and bilateral facet arthrosis without significant canal stenosis. Mild left foraminal stenosis. L2-L3: Mild degenerative disc disease. Disc bulge and bilateral facet arthrosis without significant canal stenosis. Mild right foraminal stenosis. L3-L4: Mild degenerative disc disease. Disc bulge in combination with thickened ligamentum flavum, epidural lipomatosis and facet arthrosis results in mild canal stenosis. Mild right and severe left facet arthrosis. No significant foraminal stenosis. L4-L5: Mild degenerative disc disease. Disc bulge in combination with thickened ligamentum flavum and facet arthrosis results in mild canal stenosis. Bilateral advanced facet arthrosis. Mild bilateral foraminal stenosis. L5-S1: Mild degenerative disc disease. Disc bulge without canal stenosis. Severe right and mild left facet arthrosis. No significant foraminal stenosis. IMPRESSION: 1. No acute fracture. Loss of normal thoracic kyphosis may be positional or due to muscle spasm. 2. Ligament, spinal cord and or vascular abnormalities cannot be excluded on the basis of this examination. 3. Thoracic and lumbar spondylosis as detailed above. Signed by: Dr. Sue Valera M.D. on 07/03/2018 8:25 PM
[2018-07-03] MEDS ORDERED: SODIUM CHLORIDE 0.9% 1000ML 1,000 ML ONE (20:41)
[2018-07-03 20:55] LABS: B-TYPE NATRIURETIC PEPTIDE2 11.9 pg/mL (0-100)
[2018-07-03] MEDS ORDERED: SODIUM CHLORIDE 0.9% 1000ML 1,000 ML IV ONE (21:00)
[2018-07-03 21:15] LABS: CLARITY,URINE HAZY (CLEAR); COLOR,URINE AMBER (YELLOW); LEUKOCYTE ESTERASE ,URINE TRACE (NEGATIVE); NITRITE,URINE POSITIVE (NEGATIVE); PROTEIN,URINE DIPSTICK 1+ (NEGATIVE)
[2018-07-03 21:16] LABS: BILIRUBIN,URINE 1+ (NEGATIVE); KETONES,URINE 3+ (NEGATIVE); URINE UROBILINOGEN 1 mg/dL (0.2 - 1)
[2018-07-03 21:24] LABS: WBC,URINE (MAN) 0-5 /HPF (0-5)
[2018-07-03 21:25] LABS: EPITHELIAL CELLS,URINE RARE /LPF
[2018-07-03 22:14] VITALS: BP 129/75
== END 2018-07-03 22:30 | disposition home or self-care (01) ==
LOC: ER 14:56
DX: M54.6 Pain in thoracic spine (principal); M54.5 Low back pain; S23.3XXA Sprain of ligaments of thoracic spine, initial encounter; S33.5XXA Sprain of ligaments of lumbar spine, initial encounter; W06.XXXA Fall from bed, initial encounter; Y93.84 Activity, sleeping; Y92.003 Bedroom of unspecified non-institutional (private) residence as the place of occurrence of the external cause; N30.90 Cystitis, unspecified without hematuria; E86.0 Dehydration; I10 Essential (primary) hypertension; M06.9 Rheumatoid arthritis, unspecified; G89.29 Other chronic pain
CPT/HCPCS: 36415; 70450; 71045; 72125; 72128; 72131; 72170; 80053; 81001; 82550; 82553; 83605; 83735; 83880; 84484; 85025; 85610; 85730; 87086; 87186; 93005; 99284; J7030

== ENCOUNTER 2018-08-18 15:39 | Emergency (ER) | payer MEDICARE ==
[~2018-08-18] VITALS: Ht 165.1 cm; Wt 88.5 kg
--- OUTSIDE RECORDS SUMMARY | 2018-08-18 15:42 | XMS REPORT | Continuity of Care Document ---
Author Author [facility] Interface Address Unknown Phone Unavailable Problems Problem Status Onset Date Classification Date Reported Comments Source Medications Medication Details Route Status Patient Instructions Ordering Provider Order Date Source Carbamazepine (Tegretol) 100 Mg Tab.chew Three Times A Day [facility] Carbamazepine (Tegretol) 200 Mg Tablet Three Times A Day [facility] Clonazepam 0.5 Mg Tablet as needed [facility] Cyclobenzaprine Hcl (Flexeril) 10 Mg Tablet Daily [facility] Dexlansoprazole (Dexilant) 60 Mg Cap. Daily [facility] Esomeprazole Magnesium (Nexium) 40 Mg Capsule.dr Pace Active [facility] Lisinopril 10 Mg Tablet Daily Active [facility] Sucralfate 1 Gm Tablet Four Times Daily [facility] Allergies, Adverse Reactions, Alerts Substance Category Reaction Severity Reaction type Status Date Reported Comments Source Sulfa (Sulfonamide Antibiotics) "COMA" Severe Allergy to Substance Active 07/03/2018 [facility] Immunizations Immunization Date Given Site Status Last Updated Comments Source Results Order Name Results Value Reference Range Date Interpretation Comments Source Urine color determination KEELEY YELLOW 07/03/2018 [facility] Urine clarity HAZY CLEAR 07/03/2018 [facility] Specific gravity of Urine by Test strip 1.030 1.010 - 1.025 07/03/2018 [facility] Urine pH measurement by automated test strip 5 5 - 7 07/03/2018 [facility] Urine leukocyte esterase detection by dipstick TRACE NEGATIVE 07/03/2018 [facility] Urine nitrite detection POSITIVE NEGATIVE 07/03/2018 [facility] Urine protein measurement by test strip (mass/volume) 1+ NEGATIVE 07/03/2018 [facility] Urine glucose detection NEGATIVE NEGATIVE 07/03/2018 [facility] Urine ketones detection by automated test strip 3+ NEGATIVE 07/03/2018 [facility] Urine urobilinogen measurement by test strip (mass/volume) 1 0.2 - 1 07/03/2018 [facility] Urine total bilirubin measurement (mass/volume) 1+ NEGATIVE 07/03/2018 [facility] Urine erythrocytes detection NEGATIVE NEGATIVE 07/03/2018 [facility] Automated urine sediment leukocyte count by microscopy (number/high power field) 0-5 0 - 5 07/03/2018 [facility] Erythrocytes detection in urine sediment by light microscopy NONE 0 - 5 07/03/2018 [facility] Bacteria detection in urine sediment by light microscopy NONE NONE 07/03/2018 [facility] Epithelial cells detection in urine sediment by light microscopy RARE NONE 07/03/2018 [facility] Blood leukocytes automated count (number/volume) 12.64 4.8 - 10.8 07/03/2018 [facility] Blood erythrocytes automated count (number/volume) 4.94 3.6 - 5.1 07/03/2018 [facility] Blood hemoglobin measurement (moles/volume) 15.2 12.0 - 16.0 07/03/2018 [facility] Automated blood hematocrit (volume fraction) 44.5 34.2 - 44.1 07/03/2018 [facility] Automated erythrocyte mean corpuscular volume 90.1 81 - 99 07/03/2018 [facility] Automated erythrocyte mean corpuscular hemoglobin (mass per erythrocyte) 30.8 28 - 32 07/03/2018 [facility] Automated erythrocyte mean corpuscular hemoglobin concentration measurement (mass/volume) 34.2 31 - 35 07/03/2018 [facility] RDW BldCo-Rto 12.6 11.7 - 14.4 07/03/2018 [facility] Automated blood platelet count (count/volume) 222 140 - 360 07/03/2018 [facility] Automated blood segmented neutrophil count as percentage of total leukocytes 86.3 38.7 - 80.0 07/03/2018 [facility] Automated blood lymphocyte count as percentage ot total leukocytes 5.1 18.0 - 39.1 07/03/2018 [facility] Automated blood monocyte count as percentage of total leukocytes 7.8 4.4 - 11.3 07/03/2018 [facility] Automated blood eosinophil count as percentage of total leukocytes 0.2 0.0 - 6.0 07/03/2018 [facility] Automated blood basophil count as percentage of total leukocytes 0.2 0.0 - 1.0 07/03/2018 [facility] IM GRANULOCYTES % 0.4 0.0 - 1.0 07/03/2018 [facility] Automated blood neutrophil count 10.9 2.1 - 6.9 07/03/2018 [facility] Blood lymphocytes count (number/volume) 0.6 1.0 - 3.2 07/03/2018 [facility] Blood monocytes automated count (number/volume) 1.0 0.2 - 0.8 07/03/2018 [facility] Automated blood eosinophil count 0.0 0.0 - 0.4 07/03/2018 [facility] Automated blood basophil count (count/volume) 0.0 0.0 - 0.1 07/03/2018 [facility] Absolute Immature Granulocyte (auto 0.05 0 - 0.1 07/03/2018 [facility] Prothrombin time (PT) in platelet poor plasma by coagulation assay 15.3 11.9 - 14.5 07/03/2018 [facility] INR in Platelet poor plasma by Coagulation assay 1.11 07/03/2018 [facility] Activated partial thromboplastin time (aPTT) in platelet poor plasma bycoagulation assay 31.9 23.8 - 35.5 07/03/2018 [facility] Serum or plasma sodium measurement (moles/volume) 133 136 - 145 07/03/2018 [facility] Serum or plasma potassium measurement (moles/volume) 4.0 3.5 - 5.1 07/03/2018 [facility] Serum or plasma chloride measurement (moles/volume) 97 98 - 107 07/03/2018 [facility] Serum or plasma carbon dioxide, total measurement (moles/volume) 23 22 - 29 07/03/2018 [facility] Serum or plasma anion gap 17.0 8 - 16 07/03/2018 [facility] Serum or plasma urea nitrogen measurement (mass/volume) 10 7 - 26 07/03/2018 [facility] Serum or plasma creatinine measurement (mass/volume) 0.78 0.57 - 1.11 07/03/2018 [facility] Serum or plasma urea nitrogen/creatinine mass ratio 13 6 - 25 07/03/2018 [facility] Estimated glomerular filtration rate (GFR) determination > 60 60 07/03/2018 [facility] Glucose measurement 141 74 - 118 07/03/2018 [facility] Serum or plasma calcium measurement (mass/volume) 9.6 8.4 - 10.2 07/03/2018 [facility] Lactic Acid Level 11.9 4.5 - 19.8 07/03/2018 [facility] Serum or plasma magnesium measurement (mass/volume) 1.9 1.3 - 2.1 07/03/2018 [facility] Serum or plasma total bilirubin measurement (mass/volume) 1.4 0.2 - 1.2 07/03/2018 [facility] Aspartate Amino Transf (AST/SGOT) 19 5 - 34 07/03/2018 [facility] Serum or plasma alanine aminotransferase measurement (enzymatic activity/volume) 31 0 - 55 07/03/2018 [facility] Serum or plasma protein measurement (mass/volume) 7.3 6.5 - 8.1 07/03/2018 [facility] Serum or plasma albumin measurement (mass/volume) 3.6 3.5 - 5.0 07/03/2018 [facility] Plasma globulin measurement (mass/volume) 3.7 2.3 - 3.5 07/03/2018 [facility] Serum or plasma albumin/globulin mass ratio 1.0 0.8 - 2.0 07/03/2018 [facility] Serum or plasma alkaline phosphatase measurement (enzymatic activity/volume) 85 40 - 150 07/03/2018 [facility] BNP Bld-mCnc 11.9 0 - 100 07/03/2018 [facility] Serum or plasma creatine kinase measurement (enzymatic activity/volume) 32 29 - 168 07/03/2018 [facility] Serum or plasma creatine kinase MB measurement (mass/volume) 0.60 0 - 5.0 07/03/2018 [facility] Troponin I measurement by highly sensitive enzyme immunoassay 0.017 0 - 0.300 07/03/2018 [facility] Activated partial thromboplastin time (aPTT) in platelet poor plasma bycoagulation assay Activated partial thromboplastin time (aPTT) in platelet poor plasma bycoagulation assay 26.3 23.8 - 35.5 11/26/2017 [facility] Automated blood basophil count as percentage of total leukocytes Automated blood basophil count as percentage of total leukocytes 0.1 0.0 - 1.0 11/26/2017 [facility] Automated blood eosinophil count as percentage of total leukocytes Automated blood eosinophil count as percentage of total leukocytes 0.2 0.0 - 6.0 11/26/2017 [facility] Automated blood hematocrit (volume fraction) Automated blood hematocrit (volume fraction) 43.4 34.2 - 44.1 11/26/2017 [facility] Automated blood lymphocyte count as percentage ot total leukocytes Automated blood lymphocyte count as percentage ot total leukocytes 1.0 18.0 - 39.1 11/26/2017 [facility] Automated blood monocyte count as percentage of total leukocytes Automated blood monocyte count as percentage of total leukocytes 0.7 4.4 - 11.3 11/26/2017 [facility] Automated blood platelet count (count/volume) Automated blood platelet count (count/volume) 250 140 - 360 11/26/2017 [facility] Automated blood segmented neutrophil count as percentage of total leukocytes Automated blood segmented neutrophil count as percentage of total leukocytes 6.4 38.7 - 80.0 11/26/2017 [facility] Automated erythrocyte mean corpuscular hemoglobin (mass per erythrocyte) Automated erythrocyte mean corpuscular hemoglobin (mass per erythrocyte) 31.3 28 - 32 11/26/2017 [facility] Automated erythrocyte mean corpuscular hemoglobin concentration measurement (mass/volume) Automated erythrocyte mean corpuscular hemoglobin concentration measurement (mass/volume) 34.3 31 - 35 11/26/2017 [facility] Automated erythrocyte mean corpuscular volume Automated erythrocyte mean corpuscular volume 91.2 81 - 99 11/26/2017 [facility] Automated urine sediment leukocyte count by microscopy (number/high power field) Automated urine sediment leukocyte count by microscopy (number/high power field) NONE 0 - 5 11/26/2017 [facility] Bacteria detection in urine sediment by light microscopy Bacteria detection in urine sediment by light microscopy NONE NONE 11/26/2017 [facility] Blood erythrocytes automated count (number/volume) Blood erythrocytes automated count (number/volume) 4.76 3.6 - 5.1 11/26/2017 [facility] Blood hemoglobin measurement (moles/volume) Blood hemoglobin measurement (moles/volume) 14.9 12.0 - 16.0 11/26/2017 [facility] Blood leukocytes automated count (number/volume) Blood leukocytes automated count (number/volume) 8.36 4.8 - 10.8 11/26/2017 [facility] Epithelial cells detection in urine sediment by light microscopy Epithelial cells detection in urine sediment by light microscopy MODERATE NONE 11/26/2017 [facility] Erythrocytes detection in urine sediment by light microscopy Erythrocytes detection in urine sediment by light microscopy NONE 0 - 5 11/26/2017 [facility] Estimated glomerular filtration rate (GFR) determination Estimated glomerular filtration rate (GFR) determination null 60 11/26/2017 [facility] Glucose measurement Glucose measurement 136 74 - 118 11/26/2017 [facility] INR in Platelet poor plasma by Coagulation assay INR in Platelet poor plasma by Coagulation assay 1.14 11/26/2017 [facility] Plasma globulin measurement (mass/volume) Plasma globulin measurement (mass/volume) 2.9 2.3 - 3.5 11/26/2017 [facility] Prothrombin time (PT) in platelet poor plasma by coagulation assay Prothrombin time (PT) in platelet poor plasma by coagulation assay 13.7 11.9 - 14.5 11/26/2017 [facility] Serum or plasma alanine aminotransferase measurement (enzymatic activity/volume) Serum or plasma alanine aminotransferase measurement (enzymatic activity/volume) 75 0 - 55 11/26/2017 [facility] Serum or plasma albumin measurement (mass/volume) Serum or plasma albumin measurement (mass/volume) 4.3 3.5 - 5.0 11/26/2017 [facility] Serum or plasma albumin/globulin mass ratio Serum or plasma albumin/globulin mass ratio 1.5 0.8 - 2.0 11/26/2017 [facility] Serum or plasma alkaline phosphatase measurement (enzymatic activity/volume) Serum or plasma alkaline phosphatase measurement (enzymatic activity/volume) 99 40 - 150 11/26/2017 [facility] Serum or plasma anion gap Serum or plasma anion gap 13.2 8 - 16 11/26/2017 [facility] Serum or plasma calcium measurement (mass/volume) Serum or plasma calcium measurement (mass/volume) 9.9 8.4 - 10.2 11/26/2017 [facility] Serum or plasma carbon dioxide, total measurement (moles/volume) Serum or plasma carbon dioxide, total measurement (moles/volume) 24 22 - 29 11/26/2017 [facility] Serum or plasma chloride measurement (moles/volume) Serum or plasma chloride measurement (moles/volume) 109 98 - 107 11/26/2017 [facility] Serum or plasma creatine kinase MB measurement (mass/volume) Serum or plasma creatine kinase MB measurement (mass/volume) 0.60 0 - 5.0 11/26/2017 [facility] Serum or plasma creatine kinase measurement (enzymatic activity/volume) Serum or plasma creatine kinase measurement (enzymatic activity/volume) 35 29 - 168 11/26/2017 [facility] Serum or plasma creatinine measurement (mass/volume) Serum or plasma creatinine measurement (mass/volume) 0.78 0.57 - 1.11 11/26/2017 [facility] Serum or plasma potassium measurement (moles/volume) Serum or plasma potassium measurement (moles/volume) 4.2 3.5 - 5.1 11/26/2017 [facility] Serum or plasma protein measurement (mass/volume) Serum or plasma protein measurement (mass/volume) 7.2 6.5 - 8.1 11/26/2017 [facility] Serum or plasma sodium measurement (moles/volume) Serum or plasma sodium measurement (moles/volume) 142 136 - 145 11/26/2017 [facility] Serum or plasma total bilirubin measurement (mass/volume) Serum or plasma total bilirubin measurement (mass/volume) 0.7 0.2 - 1.2 11/26/2017 [facility] Serum or plasma urea nitrogen measurement (mass/volume) Serum or plasma urea nitrogen measurement (mass/volume) 11 7 - 26 11/26/2017 [facility] Serum or plasma urea nitrogen/creatinine mass ratio Serum or plasma urea nitrogen/creatinine mass ratio 14 6 - 25 11/26/2017 [facility] Specific gravity of Urine by Test strip Specific gravity of Urine by Test strip 1.015 1.010 - 1.025 11/26/2017 [facility] Troponin I measurement by highly sensitive enzyme immunoassay Troponin I measurement by highly sensitive enzyme immunoassay null 0 - 0.300 11/26/2017 [facility] Urine clarity Urine clarity CLEAR CLEAR 11/26/2017 [facility] Urine color determination Urine color determination YELLOW YELLOW 11/26/2017 [facility] Urine erythrocytes detection Urine erythrocytes detection NEGATIVE NEGATIVE 11/26/2017 [facility] Urine glucose detection Urine glucose detection NEGATIVE NEGATIVE 11/26/2017 [facility] Urine ketones detection by automated test strip Urine ketones detection by automated test strip NEGATIVE NEGATIVE 11/26/2017 [facility] Urine leukocyte esterase detection by dipstick Urine leukocyte esterase detection by dipstick NEGATIVE NEGATIVE 11/26/2017 [facility] Urine nitrite detection Urine nitrite detection NEGATIVE NEGATIVE 11/26/2017 [facility] Urine pH measurement by automated test strip Urine pH measurement by automated test strip 5 5 - 7 11/26/2017 [facility] Urine protein measurement by test strip (mass/volume) Urine protein measurement by test strip (mass/volume) NEGATIVE NEGATIVE 11/26/2017 [facility] Urine total bilirubin measurement (mass/volume) Urine total bilirubin measurement (mass/volume) NEGATIVE NEGATIVE 11/26/2017 [facility] Urine urobilinogen measurement by test strip (mass/volume) Urine urobilinogen measurement by test strip (mass/volume) 0.2 0.2 - 1 11/26/2017 [facility] Red Cell Distribution Width 12.9 11.7 - 14.4 11/26/2017 [facility] IM GRANULOCYTES % 0.0 0.0 - 1.0 11/26/2017 [facility] Aspartate Amino Transf (AST/SGOT) 59 5 - 34 11/26/2017 [facility] B-Type Natriuretic Peptide 19.4 0 - 100 11/26/2017 [facility] Vital Signs Vital Sign Value Date Comments Source Encounters Location Location Details Encounter Type Encounter Number Reason For Visit Attending Provider ADM Date DC Date Status Source Departed Emergency Room [id number] ANNA WATT MD 11/26/2017 11/26/2017 [facility] Departed Emergency Room [id number] GUILLERMO BEY MD 12/24/2017 12/25/2017 [facility] Departed Emergency Room [id number] ANNA WATT MD 07/03/2018 07/03/2018 [facility] Procedures Procedure Code Date Perfomer Comments Source Computed tomography of brain without radiopaque contrast [id number] 07/03/2018 [facility] Computed tomography of cervical spine without contrast [id number] 07/03/2018 [facility] Computed tomography of thoracic spine without contrast [id number] 07/03/2018 [facility] Computed tomography of lumbar spine without contrast [id number] 07/03/2018 [facility] X-ray of chest, single view [id number] 07/03/2018 [facility]
--- OUTSIDE RECORDS SUMMARY | 2018-08-18 15:43 | XMS REPORT | Summary of Care ---
Author Author Hal Altamirano Organization Unknown Address Unknown Phone Unavailable Care Team Providers Care Signs And Displays Sales Representative Name Role Phone EVE Stokes, DAVID Unavailable Unavailable Hal Altamirano Unavailable Unavailable CAMILA P.A., VEE Unavailable Unavailable RAMONA Seo, ELZA Unavailable Unavailable YOUSIF MENDEZ, ROSIE Webster Unavailable Unavailable JEFF Seo, ROBYN Unavailable Unavailable [facility]E [facility] [place], DAVID Unavailable Unavailable RAMONA MENDEZ [place], ELZA Unavailable Unavailable GAYE MENDEZ [place], SCOTT Lucio Unavailable Unavailable Unavailable Unavailable Functional Status Name [...] Obesity (BMI 30-39.9) (278.00, E66.9) Status: Active Osteoporosis (733.00, M81.0) Status: Active Need for influenza vaccination (V04.81, Z23) Status: Active Need for hepatitis C screening [...] Active Bladder spasm (596.89, N32.89) Status: Active Osteoarthritis of spine (721.90, M47.9) Status: Active Chronic back pain (724.5, M54.9) Status: Active Osteoarthritis (715.90, M19.90) Status: Active Ulcer (707.9) Status: Active Nausea without vomiting (787.02, R11.0) Status: Active S/P bariatric surgery (V45.86, Z98.84) Status: Active Dysuria (788.1, R30.0) Status: Active Hypertension, unspecified type (401.9, I10) Status: Active Controlled substance agreement signed (V58.69, Z79.899) Status: Active 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, 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) Status: Active Lumbar facet arthropathy (721.3, M47.816) Status: Active Lumbar radicular pain (724.4, M54.16) Status: Active Spondylosis, 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 Quantity: 90 YEH D.O., TANYAN * Start : 20-Dec-2016 Active 90 Tablet [...] Vitamin D CAPS * Refills: 0 Active PredniSONE 10 MG Oral Tablet Take 2 tablets twice a day for 7 days then 1 tablet twice a day for 7 days * Quantity: 42 Refills: 0 YEH D.O., KIKI-TEETEE * Start : 05-Apr-2017 Active Shingrix 50 MCG Intramuscular Suspension Reconstituted Administer at pharmacy as directed * Quantity: 1 Refills: 0 CAMILA P.VEE Cadena * Start : 04-Apr-2018 Active Tdap (Adacel) Inject at pharmacy as directed * Quantity: 1 Refills: 0 CAMILA P.AVEE Ortiz * Start : 04-Apr-2018 Active 0.5 ML Syringe Oxytrol 3.9 MG/24HR Transdermal Patch Twice Weekly 1 Patch applied to SKIN TWICE A WEEK * Quantity: 1 Refills: 5 YEH D.O., DAVID * Start : 06-May-2018 Active 8 Patch Box Acetaminophen-Codeine #3 300-30 MG Oral Tablet TAKE 1 TABLET 4 TIMES DAILY NEEDED FOR PAIN. * Quantity: 40 Refills: 0 YEH D.O., KIKI-TEETEE * Start : 11-Jun-2018 Active PredniSONE 10 MG Oral Tablet TAKE 4 TABLETS DAILY FOR 3 DAYS,3 TABLETS DAILY FOR 3 DAYS, 2 TABLETS DAILY FOR 3 DAYS AND 1 TABLET DAILY FOR 3 DAYS, THEN STOP. * Quantity: 30 Refills: 0 YEH D.O., KIKI-TEETEE * Start : 11-Jun-2018 Active Nortriptyline HCl - 25 MG Oral Capsule TAKE 1 CAPSULE AT BEDTIME. * Quantity: 30 Refills: 2 AHMED M.D., MOUSTAFA * Start : 24-Jun-2018 Active Gabapentin 100 MG Oral Capsule SEE TITRATION SCHEDULE MDD AT COMPLETEION OF TITRATION 900MG * Quantity: 135 Refills: 0 RAMONA Cavazos.Mychal, MOUSTAFA * Start : 24-Jun-2018 Active DULoxetine HCl - 30 MG Oral Capsule Delayed Release Particles TAKE ONE CAPSULE BY MOUTH ONCE DAILY FOR 7 DAYS THEN 2 CAPSULES BY MOUTH ONCE DA SHANTA * Quantity: 53 Refills: 0 RAMONA Seo, MOUSTAFA * Start : 24-Jun-2018 Active TraMADol HCl - 50 MG Oral Tablet TAKE 1 TABLET EVERY 8 HOURS NEEDED. * Quantity: 90 Refills: 0 RAMONA Cavazos.Pao., MOUSTAFA * Start : 24-Jun-2018 Active Metoclopramide HCl - 5 MG Oral Tablet Disintegrating TAKE 1 TABLET EVERY 6 HOURS PRN nausea * Quantity: 60 Refills: 1 YEH D.O., KIKI-TEETEE * Start : 16-Jul-2018 Active Allergies and Adverse Reactions Name Dates Details Iodinated Contrast Media (Allergy) Status: Active Sulfa Drugs (Allergy) Status: Active Past Medical History Name Dates Details History of abdominal pain (V1., Z87.898) Status: Resolved History of Acute gastroenteritis [...] Procedure Dates Details Physical Therapy Date: 24-Jun-2018 [QL] URINALYSIS, COMPLETE W/REFLEX TO CULTURE Date: 16-Jul-2018 [QL] BASIC METABOLIC PANEL W/EGFR Date: 16-Jul-2018 [QL] HEMOGLOBIN A1c Date: 16-Jul-2018 [] LIPID PANEL WITH REFLEX TO DIRECT LDL Date: 19-Jun-2018 [QL] SJOGRENS ANTIBODIES (SS-A,SS-B) Date: 19-Jun-2018 [Q] DRUG ABUSE PANEL 9-50 Date: 24-Jun-2018 History of Appendectomy Completed History of Tonsillectomy Completed History of Hysterectomy Completed History of Gallbladder surgery Completed History of Gastric bypass surgery Completed Immunization Name Dates Details Fluzone Quadrivalent 0.5 ML Intramuscular Suspension Prefilled Syringe Lot #: [id number] on: 26-Jul-2017 Prevnar 13 Intramuscular Suspension Lot #: [id number] on: 26-Jul-2017 Fluzone High-Dose 0.5 ML Intramuscular Suspension Prefilled Syringe Lot #: [id number] on: 04-Apr-2018 Family History Name Dates Details [...] smoker Vital Signs Date Test Result Details 24-Evg-535255:12 BP Systolic 143 mm[Hg] Status: Comments: Location: RUE; Position: Sitting BP Diastolic 88 mm[Hg] Status: Comments: Location: RUE; Position: Sitting Height 64 in Status: Weight 190 lb Status: Body Mass Index Calculated 32.61 kg/m2 Status: Body Surface Area Calculated 1.91 m2 Status: Temperature 97.7 f Status: Comments: Method: Temporal Respiration Rate 16 /min Status: Heart Rate 120 /min Status: 31-Tew-475748:00 BP Systolic 102 mm[Hg] Status: Comments: Location: LUE; Position: Sitting BP Diastolic 74 mm[Hg] Status: Comments: Location: LUE; Position: Sitting Height 64 in Status: Heart Rate 118 /min Status: 3-Rts-649859:16 BP Systolic 126 mm[Hg] Status: Comments: Location: LUE; Position: Sitting BP Diastolic 83 mm[Hg] Status: Comments: Location: LUE; Position: Sitting Height 64 in Status: Weight 189 lb Status: Body Mass Index Calculated 32.44 kg/m2 Status: Body Surface Area Calculated 1.91 m2 Status: Temperature 97.6 f Status: Comments: Method: Temporal Respiration Rate 16 /min Status: Heart Rate 109 /min Status: Results Date Description Value Details :23 [O] Urine Dipstick (In Office) Glucose normal (Normal) LEUKOCYTES trace NITRITE neg (Normal) UROBILINOGEN normal (Normal) PROTEIN neg (Normal) pH 5 (Normal) URINE BLOOD neg (Normal) SPECIFIC GRAVITY 1.020 (Normal) KETONES neg (Normal) BILIRUBIN neg (Normal) COLOR URINE yellow (Normal) APPEARANCE dark :51 [O] Drug Screen Urine (in Office) Marijuana (THC) negative (Normal) Cocaine (RICHA) negative (Normal) Amphetamine (AMP) negative (Normal) Methamphetamine (MET) negative (Normal) Morphine (MOP/NMN4118) negative (Normal) Morphine 2000 (OPI) negative (Normal) Methylenedioxymethamphetamine (MDMA) negative (Normal) Barbiturates (BAR) negative (Normal) Benzodiazepines (BZO) negative (Normal) Methadone (MTD) negative (Normal) Oxycodone (OXY) negative (Normal) Phencyclidine (PCP) negative (Normal) Tri-cyclic Antidepressant (TCA) negative (Normal) :00 [Q] DRUG ABUSE PANEL 9-50 Fluoroquin Resist 1 See Below Comments: * These results are for medical treatment only. * * Analysis was performed as non-forensic testing. * AMPHETAMINES (1000 ng/mL SCREEN) NEGATIVE (Normal) BARBITUATES NEGATIVE (Normal) BENZODIAZEPINES NEGATIVE (Normal) COCAINE METABOLITES NEGATIVE (Normal) MARIJUANA METABOLITES (50 ng/mL SCREEN) NEGATIVE (Normal) METHADONE NEGATIVE (Normal) OPIATES NEGATIVE (Normal) PHENCYCLIDINE NEGATIVE (Normal) PROPOXYPHENE NEGATIVE (Normal) Comments: THE SUBMITTED URINE SPECIMEN WAS TESTED AT THE LISTED CUTOFF LEVELS AND CONFIRMED BY A SECOND INDEPENDENT CHEMICAL METHOD. DRUG CLASS INITIAL CUTOFF LEVEL AMPHETAMINES 1000 ng/mL BARBITURATES 300 ng/mL BENZODIAZEPINES 300 ng/mL COCAINE METABOLITES 300 ng/mL MARIJUANA METABOLITES 50 ng/mL METHADONE 300 ng/mL OPIATES 300 ng/mL PHENCYCLIDINE 25 ng/mL PROPOXYPHENE 300 ng/mL Plan of Care Name Dates Details Planned Observations Planned Goals not documented Instructions Name Dates Details Instructions not documented [...] Diagnosis: Problem not documented On: 24-Jun-2018 15:00 Appointment; DAVID PRADO D.O. Encounter Diagnosis: Problem not documented On: 16-Jul-2018 15:00 Appointment; ELZA GREENE M.D. Encounter Diagnosis: Problem not documented On: 22-Jul-2018 15:30 Appointment; DAVID PRADO D.O. Encounter Diagnosis: Problem not documented On: 06-Aug-2018 16:00
[2018-08-18] MEDS ORDERED: CEFTRIAXONE SOD 1 GM/NS 50 ML 50 ML IV ONE (16:00)
[2018-08-18] MEDS ORDERED: METOPROLOL TARTRATE 25 MG TAB PO NR (16:15)
[2018-08-18 16:22] LABS: BASOPHILS # (AUTO) 0.1 (0.0-0.1); BASOPHILS % 0.6 % (0.0-1.0); EOSINOPHILS # (AUTO) 0.1 (0.0-0.4); EOSINOPHILS % 1.8 % (0.0-6.0); HEMATOCRIT 41.6 % (34.2-44.1); LYMPHOCYTES % 12.3 % (18.0-39.1); MEAN CORPUSCULAR HEMOGLOBIN 29.8 pg (28-32); MEAN CORPUSCULAR HGB CONC 33.7 g/dL (31-35); MEAN CORPUSCULAR VOLUME 88.5 fL (81-99); MONOCYTES # (AUTO) 0.7 (0.2-0.8); MONOCYTES % 9.2 % (4.4-11.3); NEUTROPHILS # (AUTO) 5.9 (2.1-6.9); NEUTROPHILS % 75.8 % (38.7-80.0); PLATELET COUNT 253 x10e3/uL (140-360); RED CELL DISTRIBUTION WIDTH 14.2 % (11.7-14.4)
[2018-08-18 16:31] LABS: INR 1.03; PROTHROMBIN TIME 14.4 seconds (11.9-14.5)
[2018-08-18 16:32] LABS: PARTIAL THROMBOPLASTIN TIME 31.6 seconds (23.8-35.5)
[2018-08-18 16:34] LABS: CLARITY,URINE SL CLOUDY (CLEAR); COLOR,URINE ORANGE (YELLOW); KETONES,URINE NEGATIVE (NEGATIVE); LEUKOCYTE ESTERASE ,URINE 2+ (NEGATIVE); NITRITE,URINE POSITIVE (NEGATIVE); PROTEIN,URINE DIPSTICK 2+ (NEGATIVE)
[2018-08-18 16:35] LABS: BILIRUBIN,URINE NEGATIVE (NEGATIVE); URINE UROBILINOGEN 1 mg/dL (0.2 - 1)
[2018-08-18 16:39] LABS: ALANINE AMINOTRANSFERASE 47 IU/L (0-55); ALBUMIN 3.8 g/dL (3.5-5.0); ALBUMIN/GLOBULIN RATIO 1.4 (0.8-2.0); ALKALINE PHOSPHATASE 103 IU/L (40-150); ANION GAP 15.6 mmol/L (8-16); BLOOD UREA NITROGEN 10 mg/dL (7-26); BUN/CREATININE RATIO 11 (6-25); CALCIUM 8.9 mg/dL (8.4-10.2); CARBON DIOXIDE 17 mmol/L (22-29); CHLORIDE 105 mmol/L (98-107); CREATINE KINASE 32 IU/L (29-168); CREATININE, SERUM 0.87 mg/dL (0.57-1.11); EST GLOMERULAR FILTRATION RATE > 60 ML/MIN (60-); GLUCOSE 198 mg/dL (74-118); MAGNESIUM 1.6 MG/DL (1.3-2.1); POTASSIUM 3.6 mmol/L (3.5-5.1); SODIUM 134 mmol/L (136-145)
[2018-08-18] MEDS ORDERED: DIPHENHYDRAMINE HCL INJ 50 MG/ML VIAL IV NR (16:45)
[2018-08-18 16:51] LABS: BACTERIA,URINE FEW /HPF; EPITHELIAL CELLS,URINE MANY /LPF; RBC,URINE >50 /HPF (0-5); TRANSITIONAL EPI CELLS,URINE MANY; WBC,URINE (MAN) >50 /HPF (0-5)
[2018-08-18] MEDS ORDERED: AMOXICILLIN250 MG PO (17:28)
--- NOTE | 2018-08-18 17:51 | Diagnostic Imaging Report ---
EXAMINATION: CHEST SINGLE (PORTABLE) INDICATION: UTI. Chest pain. COMPARISON: Chest x-ray 07/03/2018. FINDINGS: AP view TUBES and LINES: None. LUNGS: Lungs are well inflated. Lungs are clear. There is no evidence of pneumonia or pulmonary edema. PLEURA: No pleural effusion or pneumothorax. HEART AND MEDIASTINUM: The cardiomediastinal silhouette is unremarkable. BONES AND SOFT TISSUES: No acute osseous lesion. Soft tissues are unremarkable. UPPER ABDOMEN: No free air under the diaphragm. IMPRESSION: No acute thoracic abnormality. Signed by: Dr. Narendra Richards M.D. on 08/18/2018 5:48 PM
== END 2018-08-18 18:30 | disposition home or self-care (01) ==
LOC: ER 15:39
DX: R30.0 Dysuria (principal); N30.21 Other chronic cystitis with hematuria; R00.0 Tachycardia, unspecified; I10 Essential (primary) hypertension; M81.0 Age-related osteoporosis without current pathological fracture
CPT/HCPCS: 36415; 71045; 80053; 81001; 82550; 82553; 83735; 83880; 84443; 84484; 85025; 85379; 85610; 85730; 87086; 93005; 99284; J0696; J1200

== ENCOUNTER 2018-08-31 02:18 | Inpatient (IN) | payer MEDICARE ==
[~2018-08-31] VITALS: Ht 172.7 cm; Wt 109.8 kg
[2018-08-31] VITALS (10 sets, daily range): BP systolic 103–147; BP diastolic 56–79
[~2018-08-31 02:18] MED LIST changes: +AMOXICILLIN250 MG PO
--- OUTSIDE RECORDS SUMMARY | 2018-08-31 02:23 | XMS REPORT | Summary of Care ---
Author Author RAMONA Seo, ELZA Grover Unknown Address Unknown Phone Unavailable Care Team Providers Care Manager Garage Name Role Phone EVE Stokes, DAVID Unavailable Unavailable CAMILA Juan J.AAngel, VEE Unavailable Unavailable RAMONA Seo, ELZA Unavailable Unavailable YOUSIF MENDEZ, ROSIE Webster Unavailable Unavailable JEFF Seo, ROBYN Unavailable Unavailable EVE [facility] [place], DAVID Unavailable Unavailable RAMONA MENDEZ [place], ELZA Unavailable Unavailable GAYE MENDEZ [place], SCOTT Lucio Unavailable Unavailable Unavailable Unavailable Functional [...] Status: Active Dysuria (788.1, R30.0) Status: Active Controlled substance agreement signed (V58.69, Z79.899) Status: Active 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, 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) Status: Active Lumbar facet arthropathy (721.3, M47.816) Status: Active Spondylosis, lumbosacral (721.3, M47.817) Status: Active Myofascial pain syndrome (729.1, M79.18) Status: Active Pain of both sacroiliac joints (724.6, M53.3) Status: Active Insomnia (780.52, G47.00) Status: Active Arthralgia of multiple sites (719.49, M25.50) Status: Active Controlled type 2 diabetes mellitus without complication (250.00, E11.9) Status: Active Recurrent UTI (599.0, N39.0) Status: Active Essential (primary) hypertension (401.9, I10) Status: Active Hypertension, unspecified type (401.9, I10) Status: Active Lumbar radicular pain (724.4, M54.16) Status: Active Medications Name Dates Details Lisinopril 20 MG Oral Tablet TAKE 1 TABLET DAILY FOR BLOOD PRESSURE. Quantity: 90 YEH D.O., KIKI-TEETEE * Start : 20-Dec-2016 Active 90 Tablet Bottle Zolpidem Tartrate 10 MG Oral Tablet TAKE 1 TABLET AT BEDTIME NEEDED FOR SLEEP. * Quantity: 30 Refills: 2 YEH D.O., DAVID * Start : 20-Dec-2016 Active Dexilant 60 MG Oral Capsule Delayed Release take 1 pill bid * Quantity: 180 Refills: 1 YEH D.O., DAVID * Start : 20-Dec-2016 Active Vitamin D CAPS * Refills: 0 Active predniSONE 10 MG Oral Tablet Take 2 tablets twice a day for 7 days then 1 tablet twice a day for 7 days * Quantity: 42 Refills: 0 YEH D.O., DAVID * Start : 05-Apr-2017 Active Shingrix 50 MCG Intramuscular Suspension Reconstituted Administer at pharmacy as directed * Quantity: 1 Refills: 0 CAMILA VEE Pollard * Start : 04-Apr-2018 Active Tdap (Adacel) Inject at pharmacy as directed * Quantity: 1 Refills: 0 CAMILA P.VEE Cadena * Start : 04-Apr-2018 Active 0.5 ML [...] D.O., DAVID * Start : 11-Jun-2018 Active predniSONE 10 MG Oral Tablet TAKE 4 TABLETS DAILY FOR 3 DAYS,3 TABLETS DAILY FOR 3 DAYS, 2 TABLETS DAILY FOR 3 DAYS AND 1 TABLET DAILY FOR 3 DAYS, THEN STOP. * Quantity: 30 Refills: 0 YEH D.O., KIKI-TEETEE * Start : 11-Jun-2018 Active Nortriptyline HCl - 25 MG Oral Capsule TAKE 1 CAPSULE AT BEDTIME. * Quantity: 30 Refills: 2 ELZA GREENE M.D. * Start : 24-Jun-2018 Active Gabapentin 100 [...] DA SHANTA * Quantity: 53 Refills: 0 AHMED M.D., MOUSTAFA * Start : 24-Jun-2018 Active traMADol HCl - 50 MG Oral Tablet TAKE 1 TABLET EVERY 8 HOURS NEEDED. * Quantity: 90 Refills: 0 AHMED M.D., MOUSTAFA * Start : 24-Jun-2018 Active Metoclopramide HCl - 5 MG Oral Tablet Disintegrating TAKE 1 TABLET EVERY 6 HOURS PRN nausea * Quantity: 60 Refills: 1 YEH D.O., KIKI-TEETEE * Start : 16-Jul-2018 Active Cyclobenzaprine HCl - 10 MG Oral Tablet TAKE 1 TABLET AT BEDTIME. * Quantity: 20 Refills: 0 YEH D.O., KIKI-TEETEE * Start : 28-Aug-2018 Active Allergies and Adverse Reactions Name Dates Details Iodinated Contrast Media (Allergy) Status: Active Sulfa Drugs (Allergy) Status: Active Past Medical History Name Dates Details History of abdominal pain (V13., Z87.898) Status: Resolved History of Acute gastroenteritis [...] (488.02, J09.X2) Status: Resolved History of insomnia (V13., Z87.898) Status: Resolved History of Sea sickness [...] Z87.42) Status: Resolved Procedures Procedure Dates Details [[facility]] URINALYSIS, COMPLETE W/REFLEX TO CULTURE Date: 16-Jul-2018 [[facility]] BASIC METABOLIC PANEL W/EGFR Date: 16-Jul-2018 [[facility]] HEMOGLOBIN A1c Date: 16-Jul-2018 History of Appendectomy Completed History of Tonsillectomy Completed History of Hysterectomy Completed History of Gallbladder surgery Completed History of Gastric bypass surgery Completed Immunization Name Dates Details Fluzone Quadrivalent 0.5 ML Intramuscular Suspension Prefilled Syringe Lot #: [id number] on: 26-Jul-2017 Prevnar 13 Intramuscular Suspension Lot #: [id number] on: 26-Jul-2017 Fluzone High-Dose 0.5 ML Intramuscular Suspension Prefilled Syringe Lot #: [id number] on: 04-Apr-2018 Family History Name Dates Details [...] smoker Vital Signs Date Test Result Details 51-Car-716016:14 BP Systolic 136 mm[Hg] Status: Comments: Location: RUE; Position: Sitting BP Diastolic 81 mm[Hg] Status: Comments: Location: RUE; Position: Sitting Height 64 in Status: Weight 190 lb Status: Body Mass Index Calculated 32.61 kg/m2 Status: Body Surface Area Calculated 1.91 m2 Status: Temperature 98.9 f Status: Comments: Method: Temporal Heart Rate 129 /min Status: Respiration Rate 16 /min Status: 89-Drw-647062:12 BP Systolic 143 mm[Hg] Status: Comments: Location: RUE; Position: Sitting BP Diastolic 88 mm[Hg] Status: Comments: Location: RUE; Position: Sitting Height 64 in Status: Weight 190 lb Status: Body Mass Index Calculated 32.61 kg/m2 Status: Body Surface Area Calculated 1.91 m2 Status: Temperature 97.7 f Status: Comments: Method: Temporal Heart Rate 120 /min Status: Respiration Rate 16 /min Status: Results Date Description Value Details Results not documented Plan of Care Name Dates Details Planned Observations Planned Goals not documented Interventions Provided Medication Changes* traMADol HCl - 50 MG Oral Tablet - Renew Instructions Name [...] Diagnosis: Problem not documented On: 06-Aug-2018 16:00 Appointment; DAVID PRADO D.O. Encounter Diagnosis: Problem not documented On: 28-Aug-2018 14:00
--- OUTSIDE RECORDS SUMMARY | 2018-08-31 02:23 | XMS REPORT | Continuity of Care Document ---
Author Author [facility] Interface Address Unknown Phone Unavailable Problems Problem Status Onset Date Classification Date Reported Comments Source Medications Medication Details Route Status Patient Instructions Ordering Provider Order Date Source Amoxicillin 250 Mg Capsule Three Times A Day Active [place] 08/18/2018 [facility] Carbamazepine (Tegretol) 100 Mg Tab.chew Three Times A Day Active [facility] Carbamazepine (Tegretol) 200 Mg Tablet Three Times A Day Active [facility] Clonazepam 0.5 Mg Tablet as needed Active [facility] Cyclobenzaprine Hcl (Flexeril) 10 Mg Tablet Daily Active [facility] Dexlansoprazole (Dexilant) 60 Mg Cap. Daily Active [facility] Esomeprazole Magnesium (Nexium) 40 Mg Capsule.dr Pace Active [facility] Lisinopril 10 Mg Tablet Daily Active [facility] Sucralfate 1 Gm Tablet Four Times Daily Active [facility] Allergies, Adverse Reactions, Alerts Substance Category Reaction Severity Reaction type Status Date Reported Comments Source Sulfa (Sulfonamide Antibiotics) "COMA" Severe Allergy to Substance Active 08/18/2018 [facility] Immunizations Immunization Date Given Site Status Last Updated Comments Source Results Order Name Results Value Reference Range Date Interpretation Comments Source Blood leukocytes automated count (number/volume) 7.79 4.8 - 10.8 08/18/2018 [facility] Blood erythrocytes automated count (number/volume) 4.70 3.6 - 5.1 08/18/2018 [facility] Blood hemoglobin measurement (moles/volume) 14.0 12.0 - 16.0 08/18/2018 [facility] Automated blood hematocrit (volume fraction) 41.6 34.2 - 44.1 08/18/2018 [facility] Automated erythrocyte mean corpuscular volume 88.5 81 - 99 08/18/2018 [facility] Automated erythrocyte mean corpuscular hemoglobin (mass per erythrocyte) 29.8 28 - 32 08/18/2018 [facility] Automated erythrocyte mean corpuscular hemoglobin concentration measurement (mass/volume) 33.7 31 - 35 08/18/2018 [facility] RDW BldCo-Rto 14.2 11.7 - 14.4 08/18/2018 [facility] Automated blood platelet count (count/volume) 253 140 - 360 08/18/2018 [facility] Automated blood segmented neutrophil count as percentage of total leukocytes 75.8 38.7 - 80.0 08/18/2018 [facility] Automated blood lymphocyte count as percentage ot total leukocytes 12.3 18.0 - 39.1 08/18/2018 [facility] Automated blood monocyte count as percentage of total leukocytes 9.2 4.4 - 11.3 08/18/2018 [facility] Automated blood eosinophil count as percentage of total leukocytes 1.8 0.0 - 6.0 08/18/2018 [facility] Automated blood basophil count as percentage of total leukocytes 0.6 0.0 - 1.0 08/18/2018 [facility] IM GRANULOCYTES % 0.3 0.0 - 1.0 08/18/2018 [facility] Automated blood neutrophil count 5.9 2.1 - 6.9 08/18/2018 [facility] Blood lymphocytes count (number/volume) 1.0 1.0 - 3.2 08/18/2018 [facility] Blood monocytes automated count (number/volume) 0.7 0.2 - 0.8 08/18/2018 [facility] Automated blood eosinophil count 0.1 0.0 - 0.4 08/18/2018 [facility] Automated blood basophil count (count/volume) 0.1 0.0 - 0.1 08/18/2018 [facility] Absolute Immature Granulocyte (auto 0.02 0 - 0.1 08/18/2018 [facility] Prothrombin time (PT) in platelet poor plasma by coagulation assay 14.4 11.9 - 14.5 08/18/2018 [facility] INR in Platelet poor plasma by Coagulation assay 1.03 08/18/2018 [facility] Activated partial thromboplastin time (aPTT) in platelet poor plasma bycoagulation assay 31.6 23.8 - 35.5 08/18/2018 [facility] Fibrin D-dimer DDU measurement in platelet poor plasma (mass/volume) 0.34 0.00 - 0.45 08/18/2018 [facility] Urine color determination ORANGE YELLOW 08/18/2018 [facility] Urine clarity SL CLOUDY CLEAR 08/18/2018 [facility] Specific gravity of Urine by Test strip 1.010 1.010 - 1.025 08/18/2018 [facility] Urine pH measurement by automated test strip 6 5 - 7 08/18/2018 [facility] Urine leukocyte esterase detection by dipstick 2+ NEGATIVE 08/18/2018 [facility] Urine nitrite detection POSITIVE NEGATIVE 08/18/2018 [facility] Urine protein measurement by test strip (mass/volume) 2+ NEGATIVE 08/18/2018 [facility] Urine glucose detection 1+ NEGATIVE 08/18/2018 [facility] Urine ketones detection by automated test strip NEGATIVE NEGATIVE 08/18/2018 [facility] Urine urobilinogen measurement by test strip (mass/volume) 1 0.2 - 1 08/18/2018 [facility] Urine total bilirubin measurement (mass/volume) NEGATIVE NEGATIVE 08/18/2018 [facility] Urine erythrocytes detection 3+ NEGATIVE 08/18/2018 [facility] Automated urine sediment leukocyte count by microscopy (number/high power field) >50 0 - 5 08/18/2018 [facility] Erythrocytes detection in urine sediment by light microscopy >50 0 - 5 08/18/2018 [facility] Bacteria detection in urine sediment by light microscopy FEW NONE 08/18/2018 [facility] Epithelial cells detection in urine sediment by light microscopy MANY NONE 08/18/2018 [facility] Transitional cells detection in urine sediment by light microscopy MANY NONE 08/18/2018 [facility] Serum or plasma sodium measurement (moles/volume) 134 136 - 145 08/18/2018 [facility] Serum or plasma potassium measurement (moles/volume) 3.6 3.5 - 5.1 08/18/2018 [facility] Serum or plasma chloride measurement (moles/volume) 105 98 - 107 08/18/2018 [facility] Serum or plasma carbon dioxide, total measurement (moles/volume) 17 22 - 29 08/18/2018 [facility] Serum or plasma anion gap 15.6 8 - 16 08/18/2018 [facility] Serum or plasma urea nitrogen measurement (mass/volume) 10 7 - 26 08/18/2018 [facility] Serum or plasma creatinine measurement (mass/volume) 0.87 0.57 - 1.11 08/18/2018 [facility] Serum or plasma urea nitrogen/creatinine mass ratio 11 6 - 25 08/18/2018 [facility] Estimated glomerular filtration rate (GFR) determination > 60 60 08/18/2018 [facility] Glucose measurement 198 74 - 118 08/18/2018 [facility] Serum or plasma calcium measurement (mass/volume) 8.9 8.4 - 10.2 08/18/2018 [facility] Serum or plasma magnesium measurement (mass/volume) 1.6 1.3 - 2.1 08/18/2018 [facility] Serum or plasma total bilirubin measurement (mass/volume) 0.9 0.2 - 1.2 08/18/2018 [facility] Aspartate Amino Transf (AST/SGOT) 41 5 - 34 08/18/2018 [facility] Serum or plasma alanine aminotransferase measurement (enzymatic activity/volume) 47 0 - 55 08/18/2018 [facility] Serum or plasma protein measurement (mass/volume) 6.6 6.5 - 8.1 08/18/2018 [facility] Serum or plasma albumin measurement (mass/volume) 3.8 3.5 - 5.0 08/18/2018 [facility] Plasma globulin measurement (mass/volume) 2.8 2.3 - 3.5 08/18/2018 [facility] Serum or plasma albumin/globulin mass ratio 1.4 0.8 - 2.0 08/18/2018 [facility] Serum or plasma alkaline phosphatase measurement (enzymatic activity/volume) 103 40 - 150 08/18/2018 [facility] BNP Bld-mCnc 53.4 0 - 100 08/18/2018 [facility] Serum or plasma creatine kinase measurement (enzymatic activity/volume) 32 29 - 168 08/18/2018 [facility] Serum or plasma creatine kinase MB measurement (mass/volume) 0.90 0 - 5.0 08/18/2018 [facility] Troponin I measurement by highly sensitive enzyme immunoassay 0.006 0 - 0.300 08/18/2018 [facility] Serum or plasma thyrotropin measurement by detection limit <=0.005 miu/l (units/volume) 1.703 0.350 - 4.940 08/18/2018 [facility] Urine color determination KEELEY YELLOW 07/03/2018 [facility] Urine clarity HAZY CLEAR 07/03/2018 [facility] Specific gravity of Urine by Test strip 1.030 1.010 - 1.025 07/03/2018 [facility] Urine pH measurement by automated test strip 5 5 - 7 07/03/2018 [facility] Urine leukocyte esterase detection by dipstick TRACE NEGATIVE 07/03/2018 [facility] Urine nitrite detection POSITIVE NEGATIVE 07/03/2018 [facility] Urine protein measurement by test strip (mass/volume) 1+ NEGATIVE 07/03/2018 [facility] Urine glucose detection NEGATIVE NEGATIVE 07/03/2018 [facility] Urine ketones detection by automated test strip 3+ NEGATIVE 07/03/2018 [facility] Urine urobilinogen measurement by test strip (mass/volume) 1 0.2 - 1 07/03/2018 [facility] Urine total bilirubin measurement (mass/volume) 1+ NEGATIVE 07/03/2018 [facility] Urine erythrocytes detection NEGATIVE NEGATIVE 07/03/2018 [facility] Automated urine sediment leukocyte count by microscopy (number/high power field) 0-5 0 - 5 07/03/2018 [facility] Erythrocytes detection in urine sediment by light microscopy NONE 0 - 5 07/03/2018 [facility] Bacteria detection in urine sediment by light microscopy NONE NONE 07/03/2018 [facility] Epithelial cells detection in urine sediment by light microscopy RARE NONE 07/03/2018 [facility] Lactic Acid Level 11.9 4.5 - 19.8 07/03/2018 [facility] Blood erythrocytes automated count (number/volume) 4.94 3.6 - 5.1 07/03/2018 [facility] Blood hemoglobin measurement (moles/volume) 15.2 12.0 - 16.0 07/03/2018 [facility] Automated blood hematocrit (volume fraction) 44.5 34.2 - 44.1 07/03/2018 [facility] Automated erythrocyte mean corpuscular volume 90.1 81 - 99 07/03/2018 [facility] Automated erythrocyte mean corpuscular hemoglobin (mass per erythrocyte) 30.8 28 - 32 07/03/2018 [facility] Automated erythrocyte mean corpuscular hemoglobin concentration measurement (mass/volume) 34.2 31 - 35 07/03/2018 [facility] RDW BldCo-Rto 12.6 11.7 - 14.4 07/03/2018 [facility] Automated blood platelet count (count/volume) 222 140 - 360 07/03/2018 [facility] Automated blood segmented neutrophil count as percentage of total leukocytes 86.3 38.7 - 80.0 07/03/2018 [facility] Automated blood lymphocyte count as percentage ot total leukocytes 5.1 18.0 - 39.1 07/03/2018 [facility] Automated blood monocyte count as percentage of total leukocytes 7.8 4.4 - 11.3 07/03/2018 [facility] Automated blood eosinophil count as percentage of total leukocytes 0.2 0.0 - 6.0 07/03/2018 [facility] Automated blood basophil count as percentage of total leukocytes 0.2 0.0 - 1.0 07/03/2018 [facility] IM GRANULOCYTES % 0.4 0.0 - 1.0 07/03/2018 [facility] Automated blood neutrophil count 10.9 2.1 - 6.9 07/03/2018 [facility] Blood lymphocytes count (number/volume) 0.6 1.0 - 3.2 07/03/2018 [facility] Blood monocytes automated count (number/volume) 1.0 0.2 - 0.8 07/03/2018 [facility] Automated blood eosinophil count 0.0 0.0 - 0.4 07/03/2018 [facility] Automated blood basophil count (count/volume) 0.0 0.0 - 0.1 07/03/2018 [facility] Absolute Immature Granulocyte (auto 0.05 0 - 0.1 07/03/2018 [facility] Prothrombin time (PT) in platelet poor plasma by coagulation assay 15.3 11.9 - 14.5 07/03/2018 [facility] INR in Platelet poor plasma by Coagulation assay 1.11 07/03/2018 [facility] Activated partial thromboplastin time (aPTT) in platelet poor plasma bycoagulation assay 31.9 23.8 - 35.5 07/03/2018 [facility] Serum or plasma sodium measurement (moles/volume) 133 136 - 145 07/03/2018 [facility] Serum or plasma potassium measurement (moles/volume) 4.0 3.5 - 5.1 07/03/2018 [facility] Serum or plasma chloride measurement (moles/volume) 97 98 - 107 07/03/2018 [facility] Serum or plasma carbon dioxide, total measurement (moles/volume) 23 22 - 29 07/03/2018 [facility] Serum or plasma anion gap 17.0 8 - 16 07/03/2018 [facility] Serum or plasma urea nitrogen measurement (mass/volume) 10 7 - 26 07/03/2018 [facility] Serum or plasma creatinine measurement (mass/volume) 0.78 0.57 - 1.11 07/03/2018 [facility] Serum or plasma urea nitrogen/creatinine mass ratio 13 6 - 25 07/03/2018 [facility] Estimated glomerular filtration rate (GFR) determination > 60 60 07/03/2018 [facility] Glucose measurement 141 74 - 118 07/03/2018 [facility] Serum or plasma calcium measurement (mass/volume) 9.6 8.4 - 10.2 07/03/2018 [facility] Lactic Acid Level 11.9 4.5 - 19.8 07/03/2018 [facility] Serum or plasma magnesium measurement (mass/volume) 1.9 1.3 - 2.1 07/03/2018 [facility] Serum or plasma total bilirubin measurement (mass/volume) 1.4 0.2 - 1.2 07/03/2018 [facility] Aspartate Amino Transf (AST/SGOT) 19 5 - 34 07/03/2018 [facility] Serum or plasma alanine aminotransferase measurement (enzymatic activity/volume) 31 0 - 55 07/03/2018 [facility] Serum or plasma protein measurement (mass/volume) 7.3 6.5 - 8.1 07/03/2018 [facility] Serum or plasma albumin measurement (mass/volume) 3.6 3.5 - 5.0 07/03/2018 [facility] Plasma globulin measurement (mass/volume) 3.7 2.3 - 3.5 07/03/2018 [facility] Serum or plasma albumin/globulin mass ratio 1.0 0.8 - 2.0 07/03/2018 [facility] Serum or plasma alkaline phosphatase measurement (enzymatic activity/volume) 85 40 - 150 07/03/2018 [facility] BNP Bld-mCnc 11.9 0 - 100 07/03/2018 [facility] Serum or plasma creatine kinase measurement (enzymatic activity/volume) 32 29 - 168 07/03/2018 [facility] Serum or plasma creatine kinase MB measurement (mass/volume) 0.60 0 - 5.0 07/03/2018 [facility] Troponin I measurement by highly sensitive enzyme immunoassay 0.017 0 - 0.300 07/03/2018 [facility] Activated partial thromboplastin time (aPTT) in platelet poor plasma bycoagulation assay Activated partial thromboplastin time (aPTT) in platelet poor plasma bycoagulation assay 26.3 23.8 - 35.5 11/26/2017 [facility] Automated blood basophil count as percentage of total leukocytes Automated blood basophil count as percentage of total leukocytes 0.1 0.0 - 1.0 11/26/2017 [facility] Automated blood eosinophil count as percentage of total leukocytes Automated blood eosinophil count as percentage of total leukocytes 0.2 0.0 - 6.0 11/26/2017 [facility] Automated blood hematocrit (volume fraction) Automated blood hematocrit (volume fraction) 43.4 34.2 - 44.1 11/26/2017 [facility] Automated blood lymphocyte count as percentage ot total leukocytes Automated blood lymphocyte count as percentage ot total leukocytes 1.0 18.0 - 39.1 11/26/2017 [facility] Automated blood monocyte count as percentage of total leukocytes Automated blood monocyte count as percentage of total leukocytes 0.7 4.4 - 11.3 11/26/2017 [facility] Automated blood platelet count (count/volume) Automated blood platelet count (count/volume) 250 140 - 360 11/26/2017 [facility] Automated blood segmented neutrophil count as percentage of total leukocytes Automated blood segmented neutrophil count as percentage of total leukocytes 6.4 38.7 - 80.0 11/26/2017 [facility] Automated erythrocyte mean corpuscular hemoglobin (mass per erythrocyte) Automated erythrocyte mean corpuscular hemoglobin (mass per erythrocyte) 31.3 28 - 32 11/26/2017 [facility] Automated erythrocyte mean corpuscular hemoglobin concentration measurement (mass/volume) Automated erythrocyte mean corpuscular hemoglobin concentration measurement (mass/volume) 34.3 31 - 35 11/26/2017 [facility] Automated erythrocyte mean corpuscular volume Automated erythrocyte mean corpuscular volume 91.2 81 - 99 11/26/2017 [facility] Automated urine sediment leukocyte count by microscopy (number/high power field) Automated urine sediment leukocyte count by microscopy (number/high power field) NONE 0 - 5 11/26/2017 [facility] Bacteria detection in urine sediment by light microscopy Bacteria detection in urine sediment by light microscopy NONE NONE 11/26/2017 [facility] Blood erythrocytes automated count (number/volume) Blood erythrocytes automated count (number/volume) 4.76 3.6 - 5.1 11/26/2017 [facility] Blood hemoglobin measurement (moles/volume) Blood hemoglobin measurement (moles/volume) 14.9 12.0 - 16.0 11/26/2017 [facility] Blood leukocytes automated count (number/volume) Blood leukocytes automated count (number/volume) 8.36 4.8 - 10.8 11/26/2017 [facility] Epithelial cells detection in urine sediment by light microscopy Epithelial cells detection in urine sediment by light microscopy MODERATE NONE 11/26/2017 [facility] Erythrocytes detection in urine sediment by light microscopy Erythrocytes detection in urine sediment by light microscopy NONE 0 - 5 11/26/2017 [facility] Estimated glomerular filtration rate (GFR) determination Estimated glomerular filtration rate (GFR) determination null 60 11/26/2017 [facility] Glucose measurement Glucose measurement 136 74 - 118 11/26/2017 [facility] INR in Platelet poor plasma by Coagulation assay INR in Platelet poor plasma by Coagulation assay 1.14 11/26/2017 [facility] Plasma globulin measurement (mass/volume) Plasma globulin measurement (mass/volume) 2.9 2.3 - 3.5 11/26/2017 [facility] Prothrombin time (PT) in platelet poor plasma by coagulation assay Prothrombin time (PT) in platelet poor plasma by coagulation assay 13.7 11.9 - 14.5 11/26/2017 [facility] Serum or plasma alanine aminotransferase measurement (enzymatic activity/volume) Serum or plasma alanine aminotransferase measurement (enzymatic activity/volume) 75 0 - 55 11/26/2017 [facility] Serum or plasma albumin measurement (mass/volume) Serum or plasma albumin measurement (mass/volume) 4.3 3.5 - 5.0 11/26/2017 [facility] Serum or plasma albumin/globulin mass ratio Serum or plasma albumin/globulin mass ratio 1.5 0.8 - 2.0 11/26/2017 [facility] Serum or plasma alkaline phosphatase measurement (enzymatic activity/volume) Serum or plasma alkaline phosphatase measurement (enzymatic activity/volume) 99 40 - 150 11/26/2017 [facility] Serum or plasma anion gap Serum or plasma anion gap 13.2 8 - 16 11/26/2017 [facility] Serum or plasma calcium measurement (mass/volume) Serum or plasma calcium measurement (mass/volume) 9.9 8.4 - 10.2 11/26/2017 [facility] Serum or plasma carbon dioxide, total measurement (moles/volume) Serum or plasma carbon dioxide, total measurement (moles/volume) 24 22 - 29 11/26/2017 [facility] Serum or plasma chloride measurement (moles/volume) Serum or plasma chloride measurement (moles/volume) 109 98 - 107 11/26/2017 [facility] Serum or plasma creatine kinase MB measurement (mass/volume) Serum or plasma creatine kinase MB measurement (mass/volume) 0.60 0 - 5.0 11/26/2017 [facility] Serum or plasma creatine kinase measurement (enzymatic activity/volume) Serum or plasma creatine kinase measurement (enzymatic activity/volume) 35 29 - 168 11/26/2017 [facility] Serum or plasma creatinine measurement (mass/volume) Serum or plasma creatinine measurement (mass/volume) 0.78 0.57 - 1.11 11/26/2017 [facility] Serum or plasma potassium measurement (moles/volume) Serum or plasma potassium measurement (moles/volume) 4.2 3.5 - 5.1 11/26/2017 [facility] Serum or plasma protein measurement (mass/volume) Serum or plasma protein measurement (mass/volume) 7.2 6.5 - 8.1 11/26/2017 [facility] Serum or plasma sodium measurement (moles/volume) Serum or plasma sodium measurement (moles/volume) 142 136 - 145 11/26/2017 [facility] Serum or plasma total bilirubin measurement (mass/volume) Serum or plasma total bilirubin measurement (mass/volume) 0.7 0.2 - 1.2 11/26/2017 [facility] Serum or plasma urea nitrogen measurement (mass/volume) Serum or plasma urea nitrogen measurement (mass/volume) 11 7 - 26 11/26/2017 [facility] Serum or plasma urea nitrogen/creatinine mass ratio Serum or plasma urea nitrogen/creatinine mass ratio 14 6 - 25 11/26/2017 [facility] Specific gravity of Urine by Test strip Specific gravity of Urine by Test strip 1.015 1.010 - 1.025 11/26/2017 [facility] Troponin I measurement by highly sensitive enzyme immunoassay Troponin I measurement by highly sensitive enzyme immunoassay null 0 - 0.300 11/26/2017 [facility] Urine clarity Urine clarity CLEAR CLEAR 11/26/2017 [facility] Urine color determination Urine color determination YELLOW YELLOW 11/26/2017 [facility] Urine erythrocytes detection Urine erythrocytes detection NEGATIVE NEGATIVE 11/26/2017 [facility] Urine glucose detection Urine glucose detection NEGATIVE NEGATIVE 11/26/2017 [facility] Urine ketones detection by automated test strip Urine ketones detection by automated test strip NEGATIVE NEGATIVE 11/26/2017 [facility] Urine leukocyte esterase detection by dipstick Urine leukocyte esterase detection by dipstick NEGATIVE NEGATIVE 11/26/2017 [facility] Urine nitrite detection Urine nitrite detection NEGATIVE NEGATIVE 11/26/2017 [facility] Urine pH measurement by automated test strip Urine pH measurement by automated test strip 5 5 - 7 11/26/2017 [facility] Urine protein measurement by test strip (mass/volume) Urine protein measurement by test strip (mass/volume) NEGATIVE NEGATIVE 11/26/2017 [facility] Urine total bilirubin measurement (mass/volume) Urine total bilirubin measurement (mass/volume) NEGATIVE NEGATIVE 11/26/2017 [facility] Urine urobilinogen measurement by test strip (mass/volume) Urine urobilinogen measurement by test strip (mass/volume) 0.2 0.2 - 1 11/26/2017 [facility] Red Cell Distribution Width 12.9 11.7 - 14.4 11/26/2017 [facility] IM GRANULOCYTES % 0.0 0.0 - 1.0 11/26/2017 [facility] Aspartate Amino Transf (AST/SGOT) 59 5 - 34 11/26/2017 [facility] B-Type Natriuretic Peptide 19.4 0 - 100 11/26/2017 [facility] Bacterial urine culture Urine Culture [facility] Vital Signs Vital Sign Value Date Comments Source Encounters Location Location Details Encounter Type Encounter Number Reason For Visit Attending Provider ADM Date DC Date Status Source Departed Emergency Room [id number] ANNA WATT MD 11/26/2017 11/26/2017 [facility] Departed Emergency Room [id number] GUILLERMO BEY MD 12/24/2017 12/25/2017 [facility] Departed Emergency Room [id number] ANNA WATT MD 07/03/2018 07/03/2018 [facility] Departed Emergency Room [id number] HARRISON FALK MD 08/18/2018 08/18/2018 [facility] Procedures Procedure Code Date Perfomer Comments Source Computed tomography of brain without radiopaque contrast [id number] 07/03/2018 [facility] Computed tomography of cervical spine without contrast [id number] 07/03/2018 [facility] Computed tomography of thoracic spine without contrast [id number] 07/03/2018 [facility] Computed tomography of lumbar spine without contrast [id number] 07/03/2018 [facility] X-ray of chest, single view [id number] 07/03/2018 [facility]
[2018-08-31] MEDS ORDERED: IBUPROFEN 600 MG TAB PO STA (02:34)
--- NOTE | 2018-08-31 02:39 | NUR ---
IN AND OUT CATH, SENT TO LAB
[2018-08-31] MEDS ORDERED: SODIUM CHLORIDE 0.9% 1000ML 1,000 ML IV ONE ×4 (02:45→06:45)
[2018-08-31] MEDS ORDERED: CEFTRIAXONE SOD 1 GM/NS 50 ML 50 ML IV ONE (02:45)
--- NOTE | 2018-08-31 03:04 | Diagnostic Imaging Report ---
EXAMINATION: CHEST SINGLE (PORTABLE) INDICATION: ^fever ^[id number] ^0235 ^Y COMPARISON: 08/18/2018 FINDINGS: AP view TUBES and LINES: None. LUNGS: Limited by body habitus and low lung volumes. Unchanged slightly elevated right hemidiaphragm. Central peribronchovascular thickening/cuffing. PLEURA: No significant pleural effusion or pneumothorax. HEART AND MEDIASTINUM: The cardiomediastinal silhouette is unremarkable. BONES AND SOFT TISSUES: No acute osseous lesion. Soft tissues are unremarkable. UPPER ABDOMEN: No free air under the diaphragm. IMPRESSION: Central peribronchovascular thickening/cuffing. Underlying pneumonia cannot be excluded. Signed by: Dr. Joseph Hope MD on 08/31/2018 3:00 AM
[2018-08-31 03:12] LABS: BASOPHILS # (AUTO) 0.1 (0.0-0.1); BASOPHILS % 0.4 % (0.0-1.0); EOSINOPHILS % 0.1 % (0.0-6.0); HEMOGLOBIN 14.6 g/dL (12.0-16.0); LYMPHOCYTES % 7.4 % (18.0-39.1); MEAN CORPUSCULAR VOLUME 88.5 fL (81-99); MONOCYTES # (AUTO) 2.7 (0.2-0.8); NEUTROPHILS # (AUTO) 21.4 (2.1-6.9); NEUTROPHILS % 80.5 % (38.7-80.0); PLATELET COUNT 296 x10e3/uL (140-360); RED BLOOD COUNT 4.86 x10e6/uL (3.6-5.1); RED CELL DISTRIBUTION WIDTH 14.3 % (11.7-14.4)
[2018-08-31 03:29] LABS: ALBUMIN 3.2 g/dL (3.5-5.0); CREATININE, SERUM 1.09 mg/dL (0.57-1.11); POTASSIUM 3.7 mmol/L (3.5-5.1)
--- NOTE | 2018-08-31 03:45 | NUR ---
PT STATES SHE FEELS BETTER. AWAKE ALERT SKIN W/D RESP NONLAB. NAD NOTED.
[2018-08-31] MEDS: MEROPENEM 1GM 100 ML IV SCH ×4 (04:13→23:28)
[2018-08-31 04:16] LABS: CLARITY,URINE CLOUDY (CLEAR); COLOR,URINE YELLOW (YELLOW); LEUKOCYTE ESTERASE ,URINE 1+ (NEGATIVE); NITRITE,URINE POSITIVE (NEGATIVE); PROTEIN,URINE DIPSTICK TRACE (NEGATIVE)
[2018-08-31 04:17] LABS: BILIRUBIN,URINE 1+ (NEGATIVE); KETONES,URINE NEGATIVE (NEGATIVE); URINE UROBILINOGEN 0.2 mg/dL (0.2 - 1)
[2018-08-31 04:27] LABS: BACTERIA,URINE MODERATE /HPF; EPITHELIAL CELLS,URINE FEW /LPF; MUCUS,URINE MANY (RARE); RBC,URINE 0-5 /HPF (0-5); WBC,URINE (MAN) >50 /HPF (0-5)
[2018-08-31] MEDS ORDERED: CEPHALEXIN500 MG PO (04:30)
[2018-08-31] MEDS ORDERED: ULTRAM 50MG50 MG PO (04:30)
[2018-08-31] MEDS ORDERED: ZOLPIDEM TARTRA10 MG PO (04:30)
[2018-08-31] MEDS ORDERED: CYCLOBENZAPRINE10 MG PO (04:30)
[2018-08-31] MEDS ORDERED: LISINOPRIL20 MG PO (04:31)
[2018-08-31 05:31] LABS: ANION GAP 16.7 mmol/L (8-16)
--- NOTE | 2018-08-31 06:05 | NUR ---
md aware of low bp, 3rd liter ns bolus started. awake alert skin warm and moist, temp improved. denies any lightheadedness or other sx at this time.
[2018-08-31] MEDS: SODIUM CHLORIDE 0.9% 1000ML 1,000 ML IV SCH ×5 (06:09→23:28)
--- NOTE | 2018-08-31 06:55 | NUR ---
REPEAT LACTIC COLLECTED AND SENT. REPORT TO TRACY GARRETT LVN
--- NOTE | 2018-08-31 07:05 | NUR ---
apple sauce and crackers given to patient. patient reports she is feeling better, is awake and alert. no s/s of acute distress. pending PICC line placement and ICU room assignment.
[2018-08-31 07:23] LABS: CREATINE KINASE MB 0.4 ng/mL (0-5.0)
[2018-08-31] MEDS ORDERED: VANCOMYCIN 1GM/NS 250 ML 250 ML IV ONE (08:15)
[2018-08-31] MEDS ORDERED: PANTOPRAZOLE SOD 40 MG TABEC PO SCH (09:00)
[2018-08-31] MEDS: CYCLOBENZAPRINE HCL 10 MG TAB PO SCH (09:38)
[2018-08-31] MEDS: PANTOPRAZOLE SOD 40 MG TABEC PO SCH (09:39)
[2018-08-31 10:27] LABS: CREATINE KINASE MB 1.1 ng/mL (0-5.0)
--- NOTE | 2018-08-31 10:30 | NUR ---
PICC nurse here to start access, time out with PICC nurse completed prior to procedure. patient AAO x 4 and reports she is aware of the planned procedure and still consents to having PICC line placed.
--- NOTE | 2018-08-31 11:15 | Diagnostic Imaging Report ---
EXAMINATION: CHEST RADIOGRAPH INDICATION: Status post PICC placement. COMPARISON: 2Chest radiograph 08/31/2018. FINDINGS: TUBES and LINES: Interval placement of right sided PICC which terminates in the expected location of the upper SVC. LUNGS: Limited by body habitus and low lung volumes. Unchanged slightly elevated right hemidiaphragm. Central peribronchovascular opacity. Patchy bibasilar opacity. PLEURA: No evidence of pleural effusion or pneumothorax. HEART AND MEDIASTINUM: The cardiomediastinal silhouette is unremarkable. BONES AND SOFT TISSUES: No acute osseous abnormality. UPPER ABDOMEN: No free air under the diaphragm. IMPRESSION: Interval placement of right sided PICC which terminates in the expected location of the upper SVC. No evidence of pneumothorax. Low lung volumes with central vascular congestion. Patchy bibasilar opacities, likely atelectasis. Signed by: Dr. Shivam Escamilla MD on 08/31/2018 11:11 AM
[2018-08-31] MEDS ORDERED: SODIUM CHLORIDE 0.9% 1000ML 1,000 ML IV STA (14:17)
[2018-08-31] MEDS ORDERED: VASOPRESSIN INJ 20 UNIT/ML VIAL ONE (14:24)
[2018-08-31] MEDS: VASOPRESSIN 100 UNIT in DEXTROSE 5% 100ML 95 ML IV SCH (14:33)
--- NOTE | 2018-08-31 14:33 | NUR ---
started vasopressin as ordered. patient reported that radiology came in and that she told them that she "was sorry but (she) was already under too much stress and would not be doing the CT scan today"
--- NOTE | 2018-08-31 15:28 | NUR ---
moved patient into hospital bed and into ER9.
[2018-08-31] MEDS: TRAMADOL HCL 50 MG TAB PO PRN (16:24)
[2018-08-31] MEDS: METOCLOPRAMIDE HCL 10 MG/2ML VIAL IV SCH ×2 (18:02→21:30)
[2018-08-31] MEDS ORDERED: NON-FORMULARY MEDICATION (Zolpidem Tartrate 10 MG) PO SCH (21:00)
[2018-08-31] MEDS: ONDANSETRON HCL INJ 2MG/ML 2ML 2 MG/ML VIAL IV PRN (21:30)
[2018-08-31 22:10] LABS: CREATINE KINASE MB 1.2 ng/mL (0-5.0)
[2018-08-31] MEDS: ZOLPIDEM TARTRATE 10 MG TAB PO SCH (22:22)
[2018-08-31] MEDS ORDERED: PROMETHAZINE 12.5MG/ NACL 0.9% 12.5 MG/50 ML BAG IV PRN (23:00)
[2018-08-31] MEDS ORDERED: SODIUM CHLORIDE 0.9% 1000ML 500 ML IV ONE (23:00)
[2018-08-31] MEDS: METOPROLOL TARTRATE INJ 1 MG/ML VIAL IV PRN (23:30)
[2018-08-31] MEDS: ACETAMINOPHEN 325 MG TAB PO PRN (23:47)
[2018-09-01] VITALS (71 sets, daily range): BP systolic 85–148; BP diastolic 41–89
[2018-09-01] MEDS: TRAMADOL HCL 50 MG TAB PO PRN ×3 (00:37→22:00)
--- NOTE | 2018-09-01 03:26 | Consultation ---
DATE OF CONSULTATION: REASON FOR CONSULTATION: Sepsis, septic shock, and UTI. HISTORY OF PRESENT ILLNESS: This patient is a very pleasant 72-year-old female. The patient comes into the emergency room with fever and chills, not feeling well. The patient was found to be hypotensive and . She received 3 liters. Her blood pressure remains in the 90s. I was asked to see her. The patient who is currently in the emergency room, lying in bed comfortably. She is dehydrated . The patient has history of recurrent UTI. I had been following her as an outpatient. She was recently. The patient comes in with urgency, frequency, fever, chills, not feeling well, all started 2 days ago. The patient who has history of UTI recurrent, hypertension, and osteoporosis. PAST SURGICAL HISTORY: Appendectomy, cholecystectomy, hysterectomy, and left knee surgery. ALLERGIES: NKA. SOCIAL HISTORY: There is no smoking, drug abuse, or alcohol abuse. FAMILY HISTORY: Hypertension. REVIEW OF SYSTEMS: GENERAL: At the present time, generally she is just not feeling well, but she said since she came here, she is feeling much better. There is fever and chills. There is no history of frequency. There is no nausea, vomiting, or diarrhea. CARDIAC: There is no arrhythmia or chest pain. NEURO: No seizure activity. SKIN: There is no rash. All other symptoms are within normal limits. I have discussed the case with the ER physician and also with the patient and her nurse. LABORATORY DATA: Her white count on admission was 26.5, hemoglobin 14, and hematocrit 43. Sodium 131, potassium 3.7, and creatinine 1.09. Lactic acid 21. PHYSICAL EXAMINATION: GENERAL: She is currently alert and oriented. Does not seem to be in acute distress. VITAL SIGNS: Stable. Currently afebrile, but she had 100.8 earlier. Her blood pressure is 90 systolic. HEENT: Normocephalic. No pallor or icteric. NECK: Supple. CHEST: Clear. HEART: S1 and S2 normal. ABDOMEN: Soft. Bowel sounds present. No tenderness. EXTREMITIES: No edema. IMPRESSION: Sepsis with septic shock, I am concerned about pyelonephritis. I agree with blood cultures, urine cultures, meropenem 1 g IV q.8, the patient received a gram of Rocephin, we will also give her 1 g of vancomycin until we get the cultures. We will give her IV fluid. We will give her another bolus. She got 3 liters. We will give her 1 more liter. Continue with normal saline. Recheck CBC, recheck in the morning. We will follow. MD IBRAHIMA Marion/WOJCIECH /[id number]
--- NOTE | 2018-09-01 05:00 | NUR ---
Pt no longer confused, allowed SCDs and air mattress pump, did not remove.
[2018-09-01 05:39] LABS: BASOPHILS % 0.2 % (0.0-1.0); EOSINOPHILS % 0.1 % (0.0-6.0); HEMATOCRIT 34.7 % (34.2-44.1); HEMOGLOBIN 11.6 g/dL (12.0-16.0); LYMPHOCYTES # (AUTO) 0.7 (1.0-3.2); MEAN CORPUSCULAR HEMOGLOBIN 30.1 pg (28-32); MEAN CORPUSCULAR HGB CONC 33.4 g/dL (31-35); MEAN CORPUSCULAR VOLUME 90.1 fL (81-99); MONOCYTES # (AUTO) 1.1 (0.2-0.8); MONOCYTES % 8.5 % (4.4-11.3); NEUTROPHILS # (AUTO) 10.9 (2.1-6.9); NEUTROPHILS % 84.6 % (38.7-80.0); PLATELET COUNT 149 x10e3/uL (140-360); RED BLOOD COUNT 3.85 x10e6/uL (3.6-5.1); RED CELL DISTRIBUTION WIDTH 14.6 % (11.7-14.4)
[2018-09-01 06:15] LABS: CREATINE KINASE MB 0.6 ng/mL (0-5.0)
[2018-09-01 06:23] LABS: ALANINE AMINOTRANSFERASE 13 IU/L (0-55); ALBUMIN 2.2 g/dL (3.5-5.0); ALBUMIN/GLOBULIN RATIO 0.9 (0.8-2.0); ALKALINE PHOSPHATASE 70 IU/L (40-150); ANION GAP 12.1 mmol/L (8-16); BLOOD UREA NITROGEN 11 mg/dL (7-26); BUN/CREATININE RATIO 15 (6-25); CALCIUM 7.5 mg/dL (8.4-10.2); CARBON DIOXIDE 16 mmol/L (22-29); CHLORIDE 110 mmol/L (98-107); CREATININE, SERUM 0.71 mg/dL (0.57-1.11); EST GLOMERULAR FILTRATION RATE > 60 ML/MIN (60-); GLUCOSE 124 mg/dL (74-118); POTASSIUM 3.1 mmol/L (3.5-5.1); SODIUM 135 mmol/L (136-145)
[2018-09-01 06:30] LABS: THYROID STIMULATING HORMONE 0.925 uIU/mL (0.350-4.940)
[2018-09-01] MEDS: MEROPENEM 1GM 100 ML IV SCH ×3 (06:31→22:00)
[2018-09-01] MEDS: ACETAMINOPHEN 325 MG TAB PO PRN (06:32)
[2018-09-01 07:00] LABS: FREE T4 (FREE THYROXINE) 1.09 ng/dL (0.9-1.8)
[2018-09-01] MEDS ORDERED: MAGNESIUM SULFATE 2GM/50ML 50 ML IV ONE (07:00)
[2018-09-01 07:09] LABS: B-TYPE NATRIURETIC PEPTIDE2 130.6 pg/mL (0-100)
--- NOTE | 2018-09-01 07:13 | NUR ---
patient ambulated on unit. tolerated well. sitting up in chair for breakfast Addendum: 09/01/18 at 0757 by Christina Cabrera RN WRONG PATIENT NOTE
[2018-09-01] MEDS: METOCLOPRAMIDE HCL 10 MG/2ML VIAL IV SCH ×5 (07:39→20:15)
[2018-09-01] MEDS: PANTOPRAZOLE SOD 40 MG TABEC PO SCH (07:39)
[2018-09-01] MEDS: CYCLOBENZAPRINE HCL 10 MG TAB PO SCH (07:39)
[2018-09-01 09:32] LABS: BAND NEUTROPHILS % (MANUAL) 16 %; LYMPHOCYTES % (MANUAL) 5 % (19-48); MONOCYTES % (MANUAL) 11 % (3.4-9.0); NEUTROPHILS % (MANUAL) 68 % (40-74); PLATELET ESTIMATE ADEQUATE; PLATELET MORPHOLOGY COMMENT NORMAL; RBC MORPHOLOGY COMMENT NORMAL
[2018-09-01] MEDS: VANCOMYCIN 1GM/NS 250 ML 250 ML IV SCH ×2 (09:38→21:59)
[2018-09-01] MEDS: SODIUM CHLORIDE 0.9% 1000ML 1,000 ML IV SCH ×2 (10:42→17:42)
[2018-09-01] MEDS ORDERED: DEXTROSE 50% SYRINGE 50 ML IV PRN (13:00)
[2018-09-01 13:19] LABS: BASOPHILS # (AUTO) 0.1 (0.0-0.1); BASOPHILS % 0.3 % (0.0-1.0); EOSINOPHILS % 0.1 % (0.0-6.0); HEMATOCRIT 34.5 % (34.2-44.1); HEMOGLOBIN 11.7 g/dL (12.0-16.0); LYMPHOCYTES # (AUTO) 0.6 (1.0-3.2); LYMPHOCYTES % 4.2 % (18.0-39.1); MEAN CORPUSCULAR HEMOGLOBIN 30.3 pg (28-32); MEAN CORPUSCULAR HGB CONC 33.9 g/dL (31-35); MEAN CORPUSCULAR VOLUME 89.4 fL (81-99); MONOCYTES # (AUTO) 1.2 (0.2-0.8); MONOCYTES % 8.4 % (4.4-11.3); NEUTROPHILS # (AUTO) 12.7 (2.1-6.9); NEUTROPHILS % 85.9 % (38.7-80.0); PLATELET COUNT 143 x10e3/uL (140-360); RED BLOOD COUNT 3.86 x10e6/uL (3.6-5.1); RED CELL DISTRIBUTION WIDTH 14.8 % (11.7-14.4)
[2018-09-01] MEDS ORDERED: POTASSIUM CHLORIDE 20MEQ/100ML 100 ML IV ONE (13:45)
[2018-09-01 13:46] LABS: ALANINE AMINOTRANSFERASE 12 IU/L (0-55); ALBUMIN 2.1 g/dL (3.5-5.0); ALBUMIN/GLOBULIN RATIO 0.8 (0.8-2.0); ALKALINE PHOSPHATASE 66 IU/L (40-150); ANION GAP 11.3 mmol/L (8-16); BILIRUBIN,DIRECT 0.4 mg/dL (0.0-0.5); BLOOD UREA NITROGEN 11 mg/dL (7-26); BUN/CREATININE RATIO 17 (6-25); CALCIUM 7.4 mg/dL (8.4-10.2); CARBON DIOXIDE 16 mmol/L (22-29); CHLORIDE 109 mmol/L (98-107); CREATININE, SERUM 0.66 mg/dL (0.57-1.11); EST GLOMERULAR FILTRATION RATE > 60 ML/MIN (60-); GLUCOSE 210 mg/dL (74-118); PHOSPHORUS 2.1 MG/DL (2.3-4.7); POTASSIUM 3.3 mmol/L (3.5-5.1); SODIUM 133 mmol/L (136-145); TRIGLYCERIDES 122 MG/DL (0-149)
[2018-09-01 13:50] LABS: CALCIUM IONIZED 1.1 mmol/L (1.09-1.30)
[2018-09-01] MEDS: VASOPRESSIN 100 UNIT in DEXTROSE 5% 100ML 95 ML IV SCH (14:00)
[2018-09-01] MEDS: INSULIN REGULAR, HUMAN 100 UNIT/1 ML 3ML VIAL SQ SCH ×2 (16:12→21:59)
[2018-09-01 16:32] LABS: BAND NEUTROPHILS % (MANUAL) 21 %; LYMPHOCYTES % (MANUAL) 3 % (19-48); MONOCYTES % (MANUAL) 12 % (3.4-9.0); NEUTROPHILS % (MANUAL) 64 % (40-74); PLATELET MORPHOLOGY COMMENT NORMAL; RBC MORPHOLOGY COMMENT NORMAL
[2018-09-01 16:33] LABS: PLATELET ESTIMATE ADEQUATE
[2018-09-01] MEDS ORDERED: VASOPRESSIN 100 UNIT in DEXTROSE 5% 100ML 95 ML IV PRN (18:00)
--- NOTE | 2018-09-01 18:08 | NUR ---
patient requested SCD break since she feels hot with them on.
[2018-09-01] MEDS ORDERED: CENTRAL TPN FORMULA 1 BAG IV SCH (20:00)
--- NOTE | 2018-09-01 20:34 | History and Physical ---
PRIMARY CARE PHYSICIAN: Nonlocal. FINGERPRINTER: Quinton Lou MD. INFECTIOUS DISEASE: Janeth Gentile MD. CHIEF COMPLAINT: Septic shock due to recurrent urinary tract infection, failed outpatient therapy. HISTORY OF PRESENT ILLNESS: Ms. 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 She presents now with recurrent urinary tract infection that failed outpatient therapy, being admitted for PICC line placement and IV antibiotic therapy directed by the Infectious Disease specialist. She has had fever at home as high as 103 for the last 2 or 3 days, and upon presentation was hypotensive to 70, received IV fluid bolus in the ER and admitted to the ICU on vasopressin. REVIEW OF SYSTEMS: She has had fever and chills. She denies significant weight loss. She denies chest pain or palpitations. She denies shortness of breath, wheezing, or cough. She denies abdominal pain, but has short gut syndrome, so has chronic diarrhea. She denies flank pain. Does have some dysuria and obvious urinary tract infection. She denies rash or pruritus. She denies joint pain or swelling. She denies bleeding or bruising. She denies headache, vertigo, or loss of consciousness. She denies depression, agitation, homicidal or suicidal ideation. PAST MEDICAL HISTORY: Significant for hypertension and short gut syndrome and recurrent urinary tract infections that does not respond to outpatient oral treatment. PAST SURGICAL HISTORY: Includes gastric bypass followed by removal of most of her small bowel due to infection about 10 years ago. She has also had right total knee replacement since then and has had a hysterectomy since then. MEDICATIONS: Her only medications chronically are lisinopril and Protonix. ALLERGIES: SHE IS ALLERGIC TO CEFTRIAXONE, IODINE, AND SULFA DRUGS. FAMILY HISTORY: Unremarkable. SOCIAL HISTORY: She is . Qatari is her primary language. She is to her , who is here with her. She does not smoke, drink, or use illegal drugs and is generally independently functioning and ambulatory without assistance. PHYSICAL EXAMINATION: PSYCHIATRIC: She is alert and oriented x3 with normal mood and affect. CONSTITUTIONAL: She has a normal body habitus and is in no acute distress. VITAL SIGNS: As follows; blood pressure 107/63 currently on 0.03 units/hour of vasopressin, pulse rate 104, respiratory rate 20, O2 sat 100% on 2 L nasal cannula, and temperature 98.3 currently. Temperature was 103.3 on admission. Additionally, her T-max overnight was 102.6. Additionally, of note, her blood pressure initially was as low as 74/47 and her heart rate was as high as 140, sinus tach. HEENT: Her head is atraumatic. Her eyes are anicteric with clear conjunctivae. Ears and nose are without erythema or discharge. Oropharynx is clear. NECK: Supple with no mass or thyromegaly. LYMPHATIC SYSTEM: She has no palpable cervical, axillary, or inguinal adenopathy. CARDIOVASCULAR SYSTEM: Her heart has a regular rate and rhythm without murmur or extra heart sound. She has no peripheral edema. She has weak dorsal pedal pulses. RESPIRATORY: Lungs are clear to auscultation and percussion with normal respiratory effort. GASTROINTESTINAL: Her abdomen is soft without organomegaly, masses, or tenderness. She has slightly hyperactive bowel sounds. No palpable masses. CUTANEOUS: Her skin is warm and dry to touch with no rash or skin breakdown. She has PICC line in right antecubital fossa. MUSCULOSKELETAL: Her joints are in normal alignment without erythema or swelling. She has an old scar in the left knee due to total knee replacement. She has no calf tenderness. NEUROLOGIC: Nonfocal with intact cranial nerves and no motor or sensory deficits. DIAGNOSTIC STUDIES: Her chemistry profile shows sodium 131, potassium 3.7, chloride 100, CO2 of 18 with an anion gap of 16.7. Her creatinine 1.09, BUN 13 for GFR of 50. Glucose 165, calcium 9.0, bilirubin 1.5. Transaminases and alk phos are normal. Total protein 6.3, albumin 3.2, TSH is 0.925, free T4 is 109. Lactic acid 21.8, currently after 12 hours has dropped to 19.7. Her troponin 0.010 and 0.007. Hemoglobin A1c is 5.5, magnesium 1.3, calcium has dropped to 7.5 with hydration. Her sodium is up to 135, potassium 3.1, magnesium 1.3. BNP 130.6. Current GFR greater than 60 with creatinine of 0.71 and BUN of 11. Her EKG shows sinus tachycardia with possible old anteroseptal infarct, although the patient denies any history of heart disease or myocardial infarction. Chest x-ray shows central peribronchovascular thickening, although underlying bronchopneumonia cannot be excluded. IMPRESSION AND PLAN: 1. Septic shock. The patient got an IV fluid bolus and started on IV fluids in the ER. She had a PICC line placed. She is on vasopressin at 0.03 units/hour. She was started on IV vancomycin and Merrem by Infectious Disease. 2. Urinary tract infection that is recurrent and has failed outpatient therapy. The patient is on IV vancomycin and Merrem per infectious Disease. 3. Short gut syndrome. The patient will be started on IV TPN by the PICC line, which we will try to make arrangements through Case Management for her to continue this at home. 4. Hypertension. Currently, normotensive. We will hold blood pressure medicine for now. 5. Bronchopneumonia. The patient is already on vancomycin and Merrem. We will consult with ID whether to add Zithromax for atypical lower respiratory tract infection. 6. For prophylaxis, the patient is on Pepcid, Protonix, and SCDs. MD SALLY Quiñones/WOJCIECH /[id number]
--- NOTE | 2018-09-01 20:44 | Consultation ---
DATE OF CONSULTATION: Pulmonary Critical Care Consultation. CHIEF COMPLAINT: Fever, electrolyte abnormalities, and abnormal chest x-ray. CONSULTING PHYSICIAN: Duncan Stoll MD. HISTORY OF PRESENT ILLNESS: The patient is a 72-year-old woman. In the late she had a gastric bypass for obesity. She had some intestinal dumping and apparently was scheduled to have a reversible of a bypass 5 years later, but they were unable to do because of excessive scar tissue. Since that time she has had chronic diarrhea that has been getting worse recently. She now states that almost everything she eats, passes right through her. As a consequence of her chronic diarrhea, she has had recurrent urinary tract infections. She has been seeing Dr. Gentile as an outpatient and has been taking oral antibiotics. Over the past several days she has noted worsening fevers and chills. She does not complain of cough or congestion. She denies any chest pain or worsening fevers. She has no congestion or cough. PAST SURGICAL HISTORY: 1. Status post gastric bypass as noted above. 2. Status post cholecystectomy. 3. Status post hysterectomy. 4. Status post appendectomy. PAST MEDICAL HISTORY: 1. Gastric dumping syndrome and chronic intestinal malabsorption. 2. Recurrent urinary tract infection. 3. Hypertension. 4. Osteoporosis. SOCIAL HISTORY: The patient is nonsmoker. She is not a drinker. FAMILY HISTORY: Family history is significant for hypertension. ALLERGIES: NO KNOWN DRUG ALLERGIES. REVIEW OF SYSTEMS: The patient has had fevers at home. She has no headaches. She has no neck pain. She has no sore throat. She has no chest pain. She does not complain of cough or difficulty breathing. She does not have abdominal pain although she does have chronic diarrhea. She has no leg swelling. PHYSICAL EXAMINATION: VITAL SIGNS: The patient is afebrile. The blood pressure is 120/67, saturation 100% on 3 L, pulse is 104. HEENT: Shows no facial swelling or erythema. The nasal mucosa is normal. Oropharynx is normal. LYMPHATICS: Shows no submandibular, cervical or supraclavicular adenopathy. CARDIAC: Reveals a regular rate and rhythm with normal S1 and S2. LUNGS: Auscultation of lungs reveal clear breath sounds bilaterally. There is no wheezing. ABDOMEN: Soft and nontender. There is no rebound or guarding. EXTREMITIES: Show no leg edema or calf tenderness. There is no cyanosis or clubbing. SKIN: Shows no rashes. NEUROLOGIC: Shows no focal abnormalities. LABORATORY DATA: Sodium is 133, potassium 3.3. BUN to creatinine ratio is 11/0.66. Calcium is 7.4 and phosphorus is 2.1. Albumin is 2.1. White blood count cell is decreased from 26.5 to 14.7 and hemoglobin is 11.7. Platelet count is 143. RADIOGRAPHIC DATA: Chest x-ray shows some perihilar infiltrates of unclear significance. IMPRESSION: 1. Acute on chronic pyelonephritis with severe sepsis, present on admission. 2. Atypical pneumonia. 3. Metabolic acidosis secondary to chronic diarrhea. 4. Hypophosphatemia. 5. Severe protein-calorie malnutrition. PLAN: 1. The patient will be continued on current antibiotics as we await cultures. 2. Begin TPN. 3. Continue to monitor electrolytes. 4. Repeat chest x-ray. 5. Wean vasopressor as tolerated. Matrin Pritchard MD [facility]/MODL /[id number]
[2018-09-01] MEDS: ZOLPIDEM TARTRATE 10 MG TAB PO SCH (21:58)
[2018-09-02] VITALS (25 sets, daily range): BP systolic 88–155; BP diastolic 59–94
[2018-09-02] MEDS: SODIUM CHLORIDE 0.9% 1000ML 1,000 ML IV SCH ×3 (03:56→20:27)
[2018-09-02 05:41] LABS: BASOPHILS % 0.3 % (0.0-1.0); EOSINOPHILS # (AUTO) 0.1 (0.0-0.4); EOSINOPHILS % 0.4 % (0.0-6.0); HEMATOCRIT 35.2 % (34.2-44.1); HEMOGLOBIN 11.9 g/dL (12.0-16.0); LYMPHOCYTES # (AUTO) 0.8 (1.0-3.2); MEAN CORPUSCULAR HEMOGLOBIN 30.1 pg (28-32); MEAN CORPUSCULAR HGB CONC 33.8 g/dL (31-35); MEAN CORPUSCULAR VOLUME 89.1 fL (81-99); MONOCYTES # (AUTO) 1.3 (0.2-0.8); MONOCYTES % 8.5 % (4.4-11.3); NEUTROPHILS # (AUTO) 13.3 (2.1-6.9); NEUTROPHILS % 84.2 % (38.7-80.0); PLATELET COUNT 185 x10e3/uL (140-360); RED BLOOD COUNT 3.95 x10e6/uL (3.6-5.1); RED CELL DISTRIBUTION WIDTH 14.6 % (11.7-14.4)
[2018-09-02 05:57] LABS: INR 1.26; PROTHROMBIN TIME 16.9 seconds (11.9-14.5)
[2018-09-02 06:05] LABS: PARTIAL THROMBOPLASTIN TIME 34.3 seconds (23.8-35.5)
[2018-09-02 06:09] LABS: ALANINE AMINOTRANSFERASE 12 IU/L (0-55); ALBUMIN 1.9 g/dL (3.5-5.0); ALBUMIN/GLOBULIN RATIO 0.7 (0.8-2.0); ALKALINE PHOSPHATASE 107 IU/L (40-150); BLOOD UREA NITROGEN 11 mg/dL (7-26); BUN/CREATININE RATIO 18 (6-25); CALCIUM 7.5 mg/dL (8.4-10.2); CARBON DIOXIDE 19 mmol/L (22-29); CHLORIDE 105 mmol/L (98-107); CREATININE, SERUM 0.62 mg/dL (0.57-1.11); EST GLOMERULAR FILTRATION RATE > 60 ML/MIN (60-); GLUCOSE 184 mg/dL (74-118); SODIUM 129 mmol/L (136-145)
[2018-09-02] MEDS: MEROPENEM 1GM 100 ML IV SCH (06:40)
[2018-09-02] MEDS: INSULIN REGULAR, HUMAN 100 UNIT/1 ML 3ML VIAL SQ SCH ×4 (07:30→21:35)
--- NOTE | 2018-09-02 07:40 | NUR ---
Patient refuses CT abdomen.
[2018-09-02] MEDS: TRAMADOL HCL 50 MG TAB PO PRN ×2 (08:05→13:55)
[2018-09-02] MEDS: DICYCLOMINE HCL 20 MG TAB PO SCH ×4 (08:12→21:34)
[2018-09-02] MEDS: PANTOPRAZOLE SOD 40 MG TABEC PO SCH (08:12)
[2018-09-02] MEDS: METOCLOPRAMIDE HCL 10 MG/2ML VIAL IV SCH ×4 (08:12→21:34)
[2018-09-02] MEDS: CYCLOBENZAPRINE HCL 10 MG TAB PO SCH (08:12)
[2018-09-02] MEDS: ONDANSETRON HCL INJ 2MG/ML 2ML 2 MG/ML VIAL IV PRN (08:38)
[2018-09-02] MEDS: VANCOMYCIN 1GM/NS 250 ML 250 ML IV SCH (09:45)
[2018-09-02 10:58] LABS: LYMPHOCYTES % (MANUAL) 2 % (19-48); MONOCYTES % (MANUAL) 6 % (3.4-9.0); NEUTROPHILS % (MANUAL) 92 % (40-74)
[2018-09-02 10:59] LABS: PLATELET ESTIMATE ADEQUATE; PLATELET MORPHOLOGY COMMENT NORMAL; RBC MORPHOLOGY COMMENT NORMAL
[2018-09-02 11:38] LABS: C DIFFICILE TOXIN A&B AMP PROB **POSITIVE** (NEGATIVE)
[2018-09-02 11:39] LABS: WBC,FECAL (FECAL LACTOFERRIN) POSITIVE (NEGATIVE)
--- NOTE | 2018-09-02 12:04 | NUR ---
CDT positive called to Dr Gentile's office.
--- NOTE | 2018-09-02 13:49 | NUR ---
ASSESSMENT: Spiritual Distress Pt appeared agitated or in pain by moaning and tossing in bed. Upon introduction pt states, "I'm not ready for last rites." Pt stated she preferred to not have a visit at this time. Intervention: Provided hospitality and empathic listening. Provided information on how to reach advertising layout worker, if needed. Outcome: Followed up with RN. CAMERON PATINO Animal Husbandry Professor Spiritual Care Department O: [phone] Pager: [phone] ([phone] number calling from)
[2018-09-02] MEDS ORDERED: POTASSIUM CHLORIDE 20MEQ/100ML 100 ML IV STA (14:31)
--- NOTE | 2018-09-02 14:49 | NUR ---
Dr Tyler Pritchard to bedside; patient with sepsis diagnosis and treatment in place. Dr Gentile gave orders based on most recent findings. TPN orders to pharmacy. Patient and state understanding of condition and questions answered.
--- NOTE | 2018-09-02 15:12 | NUR ---
Nutrition Intervention Note RD Recommendation(s) for Physician: -Current 50mL/hr of PN over 20hr (30% dextrose, 15%AA, 50g lipids daily), provide total of 1260kcal, 150g dextrose, and 75g protein. -Rec 24hr of PN at 50mL/hr (30% dextrose, 20%AA, 25g lipids daily), provide total of 1317kcal, 180g dextrose, and 120g protein. -Rec GI soft (no concentrated sweets) diet for PO tolerance -Rec vitamin D (3000IU) and calcium (1200-1500mg) daily -Check BMP, Phos, Mag daily; Prealbumin, LFT and TG levels weekly -Continue with TPN per MD until diet is advanced and intake is >50% Estimated Nutritional Needs: -Calories: 1254 1425kcal(22-25kcal/kg/d) Weight used : IBW -Protein: 114 143g (2.02.5g/kg/d-) Weight used: IBW Plan of Care: RD following, monitoring for tolerance and adequacy, TPN Nutrition reason for involvement: RN Consult TPN RD Assessment 09/02 Chart reviewed. 72yo F, who was admitted for sepsis and fever. Pt was discussed during AM rounds. Per DELL Valdez, pt vomited all her breakfast this morning. Pt continued to have diarrhea today. K was repleted. TPN was started yesterday. Visited pt in the room. Pt appeared to be uncomfortable. Pt reported being bedridden for the last 5 months and unable to tolerate PO for long time. Pt stated the foods just go through me. No recent weight loss noted with reported UBW ~180lbs. No sign of muscle or fat loss upon observation. Pt denied nausea. No chewing or swallowing difficulty noted. Will continue to monitor and follow. Please consult as needed. Principal Problems/Diagnoses: Septic shock, UTI, short gut syndrome PMH: hypertension and short gut syndrome and recurrent urinary tract infections that does not respond to outpatient oral treatment. GI: abdomen soft, large, round, flatus present, LBM 09/02 (diarrhea) Skin: no wound pressure noted Labs: (09/02) Na 129 L, K 3.0 L, Glucose 184 H, Ca 7.5 L, Iron 14 L, TIBC 113 L, % sat 12 L, transferring 81 L Meds: bentyl, NaCl, Reglan, zofran, protonix, flexeril Ht: 65in Wt: 224.06lb BMI: 37.3kg/m2 IBW: 125lb Malnutrition Evaluation (09/02/2018) The patient does not meet criteria for a specified degree of malnutrition at this time. Will re-evaluate at follow-up as appropriate. Energy intake: <75% of estimated energy requirements for >3 months Weight loss: Unable to determine as pt reported UBW being lower than her current BW Fat loss: None Muscle loss: None Supporting Evidence: Fluid accumulation: unable to evaluate Functional Status: decreased, bedridden for over 5 months Nutrition Prescription (Diet Order): cardiac diet Estimated Nutritional Needs: Calories: 1254 1425kcal(22-25kcal/kg/d) Weight used : IBW Protein: 114 143g (2.02.5g/kg/d-) Weight used: IBW Diet Adequacy: Meeting calorie needs, Not meeting protein needs Diet Education Needs Assessment: Diet education indicated, but patient not appropriate for education at this time. Nutrition Care Level: high Nutrition Diagnosis: Altered GI function related short gut syndrome as evidenced by chronic diarrhea and poor PO intake. Goal: Patient will meet 75-100% of estimated needs by follow up Progress: N/A Interventions: Texture-modified diet, Composition, Rate, Route, IVF, Multivitamin/mineral supplement therapy Monitoring/Evaluation: Total energy intake, Total protein intake, Formula/Solution, IVF, Modified diet, Weight change Signed: Nereida Morris MS, RD, LD
[2018-09-02] MEDS: VANCOMYCIN 250MG/5ML ORAL SOLN PO SCH (17:41)
--- NOTE | 2018-09-02 17:50 | Progress Note ---
DATE: Pulmonary Critical Care Progress Note SUBJECTIVE: The patient's stool came back positive for C difficile. Infectious Disease stopped the intravenous antibiotics and started oral vancomycin. The patient is continuing to receive TPN. PHYSICAL EXAMINATION: VITAL SIGNS: Blood pressure is 155/75, heart rate is 93. Respiratory rate is 19. Pulse oximetry is 99%. T-max is 99.9. HEENT: Shows no facial swelling or erythema. The nasal mucosa is normal. CARDIAC: Reveals a regular rate and rhythm with a normal S1 and S2. There are no murmurs or rubs. LUNGS: Auscultation of lungs reveals clear breath sounds bilaterally. There is no wheezing. ABDOMEN: Soft, nontender. There is no rebound or guarding. EXTREMITIES: Show no leg edema or calf tenderness. There is no cyanosis or clubbing. SKIN: Shows no rashes. NEUROLOGIC: Shows no focal abnormalities. LABORATORY DATA: The white blood cell count is 15.8 and the hemoglobin is 11.9. Platelet count is 185. The potassium is 3.0 and the sodium is 129. The electrolytes are within normal limits. Saturation of the iron is 12%. The albumin is 1.9. IMPRESSION: 1. Clostridium difficile colitis with severe sepsis present on admission. 2. Acute on chronic pyelonephritis. 3. Atypical pneumonia. 4. Severe protein calorie malnutrition. 5. Metabolic acidosis secondary to chronic diarrhea. PLAN: 1. Continue oral vancomycin. 2. Continue TPN. 3. Continue to monitor electrolytes. 4. Wean vasopressors. 5. Replete potassium. Martin Pritchard MD [facility]/MODL /[id number]
--- NOTE | 2018-09-02 18:20 | NUR ---
Right PICC line dressing changed; IV tubing (except TPN) changed; CHG bath and clean gown provided.
--- NOTE | 2018-09-02 19:00 | NUR ---
Report received. Assumed care. Assessment done. See interventions.
[2018-09-02] MEDS ORDERED: CENTRAL TPN FORMULA 1 BAG IV SCH (20:00)
[2018-09-02] MEDS: ACETAMINOPHEN 325 MG TAB PO PRN (20:06)
--- NOTE | 2018-09-02 20:15 | NUR ---
Temp 101.3. Tylenol given po.
--- NOTE | 2018-09-02 20:15 | NUR ---
Dr. Stoll here. TPN orders for tomorrow signed.
[2018-09-02] MEDS: ZOLPIDEM TARTRATE 10 MG TAB PO SCH (21:34)
[2018-09-03] VITALS (22 sets, daily range): BP systolic 95–145; BP diastolic 61–107
[2018-09-03] MEDS: VANCOMYCIN 250MG/5ML ORAL SOLN PO SCH ×4 (00:15→17:20)
[2018-09-03] MEDS: SODIUM CHLORIDE 0.9% 1000ML 1,000 ML IV SCH ×2 (04:27→13:29)
[2018-09-03 05:17] LABS: BASOPHILS # (AUTO) 0.1 (0.0-0.1); BASOPHILS % 0.4 % (0.0-1.0); EOSINOPHILS # (AUTO) 0.4 (0.0-0.4); EOSINOPHILS % 2.7 % (0.0-6.0); HEMATOCRIT 34.7 % (34.2-44.1); HEMOGLOBIN 11.6 g/dL (12.0-16.0); LYMPHOCYTES % 7.2 % (18.0-39.1); MEAN CORPUSCULAR HEMOGLOBIN 29.7 pg (28-32); MEAN CORPUSCULAR HGB CONC 33.4 g/dL (31-35); MEAN CORPUSCULAR VOLUME 88.7 fL (81-99); MONOCYTES # (AUTO) 1.6 (0.2-0.8); MONOCYTES % 11.8 % (4.4-11.3); NEUTROPHILS # (AUTO) 10.4 (2.1-6.9); NEUTROPHILS % 77.1 % (38.7-80.0); PLATELET COUNT 202 x10e3/uL (140-360); RED BLOOD COUNT 3.91 x10e6/uL (3.6-5.1); RED CELL DISTRIBUTION WIDTH 14.7 % (11.7-14.4)
[2018-09-03 05:39] LABS: ALANINE AMINOTRANSFERASE 9 IU/L (0-55); ALBUMIN 1.9 g/dL (3.5-5.0); ALBUMIN/GLOBULIN RATIO 0.7 (0.8-2.0); ALKALINE PHOSPHATASE 75 IU/L (40-150); BLOOD UREA NITROGEN 11 mg/dL (7-26); BUN/CREATININE RATIO 20 (6-25); CALCIUM 7.5 mg/dL (8.4-10.2); CARBON DIOXIDE 22 mmol/L (22-29); CHLORIDE 108 mmol/L (98-107); CREATININE, SERUM 0.55 mg/dL (0.57-1.11); EST GLOMERULAR FILTRATION RATE > 60 ML/MIN (60-); GLUCOSE 175 mg/dL (74-118); SODIUM 135 mmol/L (136-145)
--- NOTE | 2018-09-03 06:40 | Diagnostic Imaging Report ---
Abdomen/KUB INDICATION: Fever, leukocytosis ^ABD DISTENSION ^Y COMPARISON: No relevant priors. FINDINGS: Portable, supine image obtained at 0619 hours. Medical Devices: None Bowel: The stomach is distended with air but is not dilated. There is gaseous distention of centrally located bowel extending to the left lower quadrant measuring up to 6 cm in diameter. More centrally located bowel may represent large bowel cannot be confirmed. No pneumatosis. Small amount of air in the right colon and what appears to be the proximal descending colon. No air in the rectum. No significant stool burden. Free air: None Calcifications: None over the renal shadows or along the expected course of the ureters Organomegaly: None Lung bases: Unremarkable Bones: Mild degenerative changes IMPRESSION: Dilated left lower quadrant bowel may represent small bowel and is concerning for obstruction. Recommend correlation with CT of the abdomen and pelvis. Signed by: Dr. Laurel Ortez MD on 09/03/2018 6:37 AM
[2018-09-03 06:54] LABS: EOSINOPHILS % (MANUAL) 2 % (0-7); HYPOCHROMASIA SLIGHT; LYMPHOCYTES % (MANUAL) 10 % (19-48); MONOCYTES % (MANUAL) 9 % (3.4-9.0); NEUTROPHILS % (MANUAL) 78 % (40-74)
[2018-09-03 06:55] LABS: ANISOCYTOSIS SLIGHT; PLATELET ESTIMATE ADEQUATE; PLATELET MORPHOLOGY COMMENT NORMAL; RBC MORPHOLOGY COMMENT NORMAL
[2018-09-03] MEDS: INSULIN REGULAR, HUMAN 100 UNIT/1 ML 3ML VIAL SQ SCH ×5 (07:30→21:00)
[2018-09-03] MEDS ORDERED: POTASSIUM CHLORIDE 20MEQ/100ML 100 ML IV ONE (08:30)
[2018-09-03] MEDS: DICYCLOMINE HCL 20 MG TAB PO SCH ×4 (08:34→21:00)
[2018-09-03] MEDS: METOCLOPRAMIDE HCL 10 MG/2ML VIAL IV SCH ×3 (08:34→16:30)
[2018-09-03] MEDS: PANTOPRAZOLE SOD 40 MG TABEC PO SCH (08:35)
[2018-09-03] MEDS: CYCLOBENZAPRINE HCL 10 MG TAB PO SCH (08:35)
[2018-09-03] MEDS ORDERED: CENTRAL TPN FORMULA 1 BAG IV SCH (11:45)
[2018-09-03] MEDS: TRAMADOL HCL 50 MG TAB PO PRN (15:06)
[2018-09-03] MEDS: METOPROLOL TARTRATE INJ 1 MG/ML VIAL IV PRN (15:07)
--- NOTE | 2018-09-03 19:59 | NUR ---
Called report to Radha SHARPE complete reported given. Patients TPN and insulin sent with remaining nonchargeable items in room sent. All patients belongings sent with patient. Patient transferred in stable condition via bed to room 291. VS charted.
--- NOTE | 2018-09-03 20:21 | NUR ---
patient received to room 291 via bed from icu. report received from Alex Alexander RN. patient awake, alert but confused at times. ivf continue to infuse without difficulty. abd lrg and firm. abd xray shows possible small bowel obstruction. ct abd/pelvis ordered for am. patient made aware of this. side rails up x 3, call pendleton placed within reach. patient instructed to call for assistance when needed.
[2018-09-03] MEDS: ZOLPIDEM TARTRATE 10 MG TAB PO SCH (21:00)
[2018-09-03] MEDS: CENTRAL TPN FORMULA 1 BAG IV SCH (21:30)
[2018-09-04] VITALS: BP 146/84
--- NOTE | 2018-09-04 | NUR ---
patient very confused. patient not willing to stay in the bed. patient making many unfamiliar request. patient becomes angry when approached. call placed to daughter at this time. daughter will come shortly to sit with patient.
--- NOTE | 2018-09-04 01:00 | NUR ---
family noted at the bedside. patient instructed of cdiff precautions. family refuses bed alarm at this time.
[2018-09-04] MEDS: TRAMADOL HCL 50 MG TAB PO PRN ×3 (02:25→18:20)
--- NOTE | 2018-09-04 02:25 | NUR ---
patient medicated with ultram 50 mg po for c/o lower back pain. will continue to monitor. family remains at the bedside.
--- NOTE | 2018-09-04 03:10 | NUR ---
patient ambulatory to bathroom with assistance. patient voids without difficulty.
[2018-09-04] MEDS: SODIUM CHLORIDE 0.9% 1000ML 1,000 ML IV SCH (04:00)
--- NOTE | 2018-09-04 04:00 | NUR ---
patient appears to be sleeping. daughter at the bedside refuses vital signs at this time.
[2018-09-04] MEDS: VANCOMYCIN 250MG/5ML ORAL SOLN PO SCH ×4 (05:20→18:36)
[2018-09-04 06:56] LABS: BASOPHILS # (AUTO) 0.1 (0.0-0.1); BASOPHILS % 0.6 % (0.0-1.0); EOSINOPHILS # (AUTO) 0.4 (0.0-0.4); HEMATOCRIT 35.4 % (34.2-44.1); LYMPHOCYTES % 10.3 % (18.0-39.1); MEAN CORPUSCULAR HEMOGLOBIN 29.9 pg (28-32); MEAN CORPUSCULAR HGB CONC 33.9 g/dL (31-35); MEAN CORPUSCULAR VOLUME 88.1 fL (81-99); MONOCYTES # (AUTO) 1.4 (0.2-0.8); MONOCYTES % 13.9 % (4.4-11.3); NEUTROPHILS # (AUTO) 6.8 (2.1-6.9); NEUTROPHILS % 67.9 % (38.7-80.0); PLATELET COUNT 215 x10e3/uL (140-360); RED BLOOD COUNT 4.02 x10e6/uL (3.6-5.1); RED CELL DISTRIBUTION WIDTH 14.7 % (11.7-14.4)
[2018-09-04 07:21] LABS: ALANINE AMINOTRANSFERASE 19 IU/L (0-55); ALBUMIN 1.9 g/dL (3.5-5.0); ALBUMIN/GLOBULIN RATIO 0.8 (0.8-2.0); ALKALINE PHOSPHATASE 65 IU/L (40-150); ANION GAP 9.4 mmol/L (8-16); BLOOD UREA NITROGEN 10 mg/dL (7-26); BUN/CREATININE RATIO 18 (6-25); CALCIUM 7.5 mg/dL (8.4-10.2); CARBON DIOXIDE 23 mmol/L (22-29); CHLORIDE 107 mmol/L (98-107); CREATININE, SERUM 0.57 mg/dL (0.57-1.11); EST GLOMERULAR FILTRATION RATE > 60 ML/MIN (60-); GLUCOSE 194 mg/dL (74-118); POTASSIUM 3.4 mmol/L (3.5-5.1); SODIUM 136 mmol/L (136-145)
--- NOTE | 2018-09-04 07:24 | NUR ---
PATIENT IN BED RESTING WITH EYES CLOSED, NO RESPIRATORY DISTRESS OBSERVED. BED IN LOWER POSITION, CALL LIGHT AT REACH.
[2018-09-04] MEDS: INSULIN REGULAR, HUMAN 100 UNIT/1 ML 3ML VIAL SQ SCH ×4 (07:30→21:00)
[2018-09-04 07:31] LABS: MAGNESIUM 1.8 MG/DL (1.3-2.1); PHOSPHORUS 1.4 MG/DL (2.3-4.7)
[2018-09-04 07:35] VITALS: BP 132/70
[2018-09-04 07:53] VITALS: BP 132/70
[2018-09-04 08:23] LABS: BAND NEUTROPHILS % (MANUAL) 4 %; EOSINOPHILS % (MANUAL) 30 % (0-7); LYMPHOCYTES % (MANUAL) 18 % (19-48); METAMYELOCYTES % (MANUAL) 1 % (0-0); MONOCYTES % (MANUAL) 2 % (3.4-9.0); MYELOCYTES % (MANUAL) 1 % (0-0); NEUTROPHILS % (MANUAL) 40 % (40-74)
[2018-09-04 08:24] LABS: ANISOCYTOSIS MODERATE; HYPOCHROMASIA SLIGHT; PLATELET ESTIMATE ADEQUATE; PLATELET MORPHOLOGY COMMENT NORMAL; POIKILOCYTOSIS SLIGHT; RBC MORPHOLOGY COMMENT NORMAL
[2018-09-04] MEDS: DICYCLOMINE HCL 20 MG TAB PO SCH ×4 (09:20→21:51)
[2018-09-04] MEDS: CYCLOBENZAPRINE HCL 10 MG TAB PO SCH (09:20)
[2018-09-04] MEDS: METOPROLOL TARTRATE INJ 1 MG/ML VIAL IV PRN (09:55)
[2018-09-04] MEDS ORDERED: POTASSIUM CHLORIDE 20 MEQ TAB CR PO STA (10:05)
--- NOTE | 2018-09-04 11:20 | NUR ---
PATIENT REFUSED CT SCAN AND PHYSICAL THERAPY STATING "I DON'T NEED IT". IN BED WITH CALL LIGHT AT REACH.
[2018-09-04 11:34] VITALS: BP 117/73
[2018-09-04] MEDS ORDERED: CHLORASEPTIC SPRAY 177 ML BTL MM PRN (14:15)
[2018-09-04] MEDS ORDERED: BENZONATATE 100 MG CAP PO PRN (14:15)
[2018-09-04 15:16] VITALS: BP 131/60
--- NOTE | 2018-09-04 15:54 | NUR ---
PATIENT ASSISTED TO THE RESTROOM AND BACK TO BED. BED IN LOWER POSITION, CALL LIGHT AT REACH.
--- NOTE | 2018-09-04 16:10 | NUR ---
DC PLANNING: MET W THE PT AND SPOUSE AT THE BEDSIDE. PT STATES SHE DID NOT WANT ANYONE IN HER HOME. STATES SHE IS VERY PRIVATE AND HAS A MAID TO CLEAN HER HOME. EXPLAINED THE PURPOSE OF THE TPN AND IV ABX. PT STATES SHE DIDN'T THINK SHE WOULD NEED THE TPN EVERY DAY AND COULD GO TO THE DOCTOR'S OFFICE FOR AN INFUSION. EXPLAINED THIS WOULD BE DAILY OVER 12HRS. THE VERBALIZED UNDERSTANDING. STATES THEY WERE ON SERVICE W [facility] BEFORE, BUT THE EXPERIENCE WAS NOT GOOD. THE PT ASKED THAT I RETURN TOMORROW TO DISCUSS AND ALLOW THEM TIME TO TALK ABOUT HH IN THEIR HOME. PT ASKED TO SIGN THE IMM TOMORROW ALSO.
--- NOTE | 2018-09-04 17:07 | NUR ---
Nutrition Intervention Note RD Recommendation(s) for Physician: - Current 50mL/hr of PN over 15hr (30% dextrose, 15%AA, 50g lipids daily), provide total of 1058kcal, 112g dextrose, and 56g protein. meet 84% of est calorie needs, 49% of est protein needs - Ensure Enlive BID has been ordered to increase protein-calorie needs. (Approved by Dr. Knutson) - Continue GI soft (no concentrated sweets) diet for PO tolerance - Rec vitamin D (3000IU) and calcium (1200-1500mg) daily - Check BMP, Phos, Mag daily; Prealbumin, LFT and TG levels weekly Estimated Nutritional Needs: - Calories: 1254 1425kcal (22-25kcal/kg/d) Weight used : IBW - Protein: 114 143g (2.02.5g/kg/d-) Weight used: IBW Plan of Care: RD following, monitoring for tolerance and adequacy, TPN Nutrition reason for involvement: Follow up RD Assessment 09/04 Pt was discussed during AM rounds. Per DELL Blanco, pt refused CT abd/pel. K was repleted. Visited pt in the room. TPN was running at 50mL/hr for 15hr. Pt continued to have poor meal intake. RD offered Ensure and pt was agreeable with rec. No complains of nausea or vomiting today. Pt complained of some sore throat but no chewing or swallowing difficult noted. LBM 09/04, diarrhea per pt. + C diff. Discussed case with Dr. Knutson. Pt is most likely to d/c home with overnight TPN infusion (8hr)and PO. No sign of refeeding syndrome at this time. Will continue to monitor and follow. 09/02 Chart reviewed. 72yo F, who was admitted for sepsis and fever. Pt was discussed during AM rounds. Per DELL Valdez, pt vomited all her breakfast this morning. Pt continued to have diarrhea today. K was repleted. TPN was started yesterday. Visited pt in the room. Pt appeared to be uncomfortable. Pt reported being bedridden for the last 5 months and unable to tolerate PO for long time. Pt stated the foods just go through me. No recent weight loss noted with reported UBW ~180lbs. No sign of muscle or fat loss upon observation. Pt denied nausea. No chewing or swallowing difficulty noted. Will continue to monitor and follow. Please consult as needed. Principal Problems/Diagnoses: Septic shock, UTI, short gut syndrome PMH: hypertension and short gut syndrome and recurrent urinary tract infections that does not respond to outpatient oral treatment. GI: abdomen soft, large, round, flatus present, LBM 09/04 (diarrhea) Skin: no wound pressure noted Labs: (09/04) K 3.4 L, Ca 7.5 L, Phos 1.4 L (09/02) Na 129 L, K 3.0 L, Glucose 184 H, Ca 7.5 L, Iron 14 L, TIBC 113 L, % sat 12 L, transferring 81 L Meds: abx, flexeril Ht: 65in Wt: 224.06lb; 242.56lb BMI: 37.3kg/m2 IBW: 125lb Malnutrition Evaluation (09/02/2018) The patient does not meet criteria for a specified degree of malnutrition at this time. Will re-evaluate at follow-up as appropriate. Energy intake: <75% of estimated energy requirements for >3 months Weight loss: Unable to determine as pt reported UBW being lower than her current BW Fat loss: None Muscle loss: None Supporting Evidence: Fluid accumulation: unable to evaluate Functional Status: decreased, bedridden for over 5 months Nutrition Prescription (Diet Order): GI soft Estimated Nutritional Needs: Calories: 1254 1425kcal (22-25kcal/kg/d) Weight used : IBW Protein: 114 143g (2.02.5g/kg/d-) Weight used: IBW Diet Adequacy: Meeting calorie needs, Not meeting protein needs Diet Education Needs Assessment: Diet education indicated, but patient not appropriate for education at this time. Nutrition Care Level: high Nutrition Diagnosis: Altered GI function related short gut syndrome as evidenced by chronic diarrhea and poor PO intake. Goal: Patient will meet 75-100% of estimated needs by follow up Progress: progressing Interventions: Texture-modified diet, liquid supplement, Composition, Rate, Route, IVF, Multivitamin/mineral supplement therapy Monitoring/Evaluation: Total energy intake, Total protein intake, Formula/Solution, IVF, Modified diet, supplements, Weight change Signed: Nereida Morris, , RD, LD
--- NOTE | 2018-09-04 17:11 | Diagnostic Imaging Report ---
EXAMINATION: CHEST SINGLE (PORTABLE) INDICATION: Cough. COMPARISON: Chest radiograph 08/31/2018. FINDINGS: TUBES and LINES: Right sided PICC terminates at the cavoatrial junction. LUNGS: Limited by body habitus and low lung volumes. Unchanged slightly elevated right hemidiaphragm. Slightly increased patchy left basilar opacity. PLEURA: No evidence of pleural effusion or pneumothorax. HEART AND MEDIASTINUM: The cardiomediastinal silhouette is unremarkable. BONES AND SOFT TISSUES: No acute osseous abnormality. UPPER ABDOMEN: No free air under the diaphragm. IMPRESSION: Low lung volumes with slightly increased patchy left basilar opacity, which could reflect atelectasis or early pneumonia in a patient with cough. Follow-up chest radiograph is suggested. Signed by: Dr. Shivam Escamilla MD on 09/04/2018 5:07 PM
[2018-09-04 20:00] VITALS: BP 141/86
--- NOTE | 2018-09-04 21:24 | NUR ---
RECEIVED PT IN BED CONFUSED .RESPIRATIONS ARE EVEN AND UNLABORED PT HAS TPN RT PICC LINE .DENIES PAIN CALL LIGHT WITH .CONTINUE TO MONITOR
[2018-09-04] MEDS: CENTRAL TPN FORMULA 1 BAG IV SCH (21:48)
[2018-09-04] MEDS: ZOLPIDEM TARTRATE 10 MG TAB PO SCH (21:51)
[2018-09-05] VITALS (7 sets, daily range): BP systolic 116–140; BP diastolic 58–77
[2018-09-05] MEDS: VANCOMYCIN 250MG/5ML ORAL SOLN PO SCH ×4 (01:15→18:45)
[2018-09-05] MEDS: TRAMADOL HCL 50 MG TAB PO PRN ×2 (01:16→16:00)
[2018-09-05 06:12] LABS: BASOPHILS # (AUTO) 0.1 (0.0-0.1); BASOPHILS % 0.7 % (0.0-1.0); EOSINOPHILS # (AUTO) 0.3 (0.0-0.4); EOSINOPHILS % 3.7 % (0.0-6.0); HEMATOCRIT 33.7 % (34.2-44.1); HEMOGLOBIN 11.4 g/dL (12.0-16.0); LYMPHOCYTES # (AUTO) 0.9 (1.0-3.2); LYMPHOCYTES % 11.7 % (18.0-39.1); MEAN CORPUSCULAR HEMOGLOBIN 29.4 pg (28-32); MEAN CORPUSCULAR HGB CONC 33.8 g/dL (31-35); MEAN CORPUSCULAR VOLUME 86.9 fL (81-99); MONOCYTES # (AUTO) 0.9 (0.2-0.8); MONOCYTES % 11.7 % (4.4-11.3); NEUTROPHILS # (AUTO) 5.3 (2.1-6.9); NEUTROPHILS % 66.5 % (38.7-80.0); PLATELET COUNT 231 x10e3/uL (140-360); RED BLOOD COUNT 3.88 x10e6/uL (3.6-5.1); RED CELL DISTRIBUTION WIDTH 14.9 % (11.7-14.4)
[2018-09-05 06:52] LABS: ANION GAP 9.2 mmol/L (8-16); BLOOD UREA NITROGEN 10 mg/dL (7-26); BUN/CREATININE RATIO 19 (6-25); CALCIUM 7.5 mg/dL (8.4-10.2); CARBON DIOXIDE 21 mmol/L (22-29); CHLORIDE 107 mmol/L (98-107); CREATININE, SERUM 0.52 mg/dL (0.57-1.11); EST GLOMERULAR FILTRATION RATE > 60 ML/MIN (60-); GLUCOSE 202 mg/dL (74-118); MAGNESIUM 1.8 MG/DL (1.3-2.1); PHOSPHORUS 2.1 MG/DL (2.3-4.7); POTASSIUM 3.2 mmol/L (3.5-5.1); SODIUM 134 mmol/L (136-145)
--- NOTE | 2018-09-05 07:07 | NUR ---
PT SLEPT OFF AND ON DURING THE NIGHT FAMILY AT THE BEDSIDE .REPORT GIVEN TO THE ON COMING NURSE
--- NOTE | 2018-09-05 07:15 | NUR ---
PATIENT IN BED RESTING WITH NO RESPIRATORY DISTRESS. BED IN LOWER POSITION, CALL LIGHT AT REACH, FAMILY AT BED SIDE.
[2018-09-05] MEDS: INSULIN REGULAR, HUMAN 100 UNIT/1 ML 3ML VIAL SQ SCH ×4 (07:30→21:00)
[2018-09-05] MEDS: DICYCLOMINE HCL 20 MG TAB PO SCH ×4 (09:47→21:38)
[2018-09-05] MEDS: CYCLOBENZAPRINE HCL 10 MG TAB PO SCH (09:47)
[2018-09-05] MEDS: AZITHROMYCIN 250 MG TAB PO SCH (09:47)
--- NOTE | 2018-09-05 10:00 | NUR ---
PATIENT NOTED WITH HR OF 116, PRN METOPROLOL OFFERED, PATIENT REFUSED STATING " MAYBE LATER, I WANT TO GO HOME TODAY". IN BED WITH CALL LIGHT AT REACH.
--- NOTE | 2018-09-05 12:01 | NUR ---
PATIENT AMBULATED TO THE RESTROOM AND BACK TO BED WITH ASSIST. IN BED WITH CALL LIGHT AT REACH.
--- NOTE | 2018-09-05 15:30 | NUR ---
SPOKE WITH MD REGARDING ABNORMAL LAB RESULT, NEW ORDER RECEIVED.
[2018-09-05] MEDS ORDERED: POTASSIUM CHLORIDE 10MEQ EA PO NR (16:00)
--- NOTE | 2018-09-05 16:35 | NUR ---
HOME HEALTH DISCHARGE NOTE PATIENT ADDRESS WHERE SERVICE WILL BE RECEIVED: [id number] [place] [address] PATIENT CONTACT NUMBER: [phone] NAME OF HOME HEALTH COMPANY: [employer] TELEPHONE/FAX NUMBER OF COMPANY: OFF: [phone] / FAX: [phone] ADDRESS OF COMPANY: [address], [place] [address] SERVICES TO RECEIVE: home TPN ANTICIPATED DATE SERVICES WILL BEGIN: 09/06/2018 Please call the company above if you have not received a call to schedule a home visit within 24 hours of discharge. Addendum: 09/06/18 at 1506 by Alexia Ochoa CM NAME OF HOME HEALTH COMPANY: [employer] TELEPHONE/FAX NUMBER OF COMPANY: ADDRESS OF COMPANY: OFF: [phone] / SERVICES TO RECEIVE: NURSING FOR TPN,LINE CARE AND LABS [facility] @ [phone] WILL DO TEACH DEZ, THEN [facility] WILL ASSUME CARE TOMORROW. Addendum: 09/06/18 at 1515 by Alexia Ochoa CM [facility] CORRECTED # [phone]
[2018-09-05] MEDS: METOPROLOL TARTRATE INJ 1 MG/ML VIAL IV PRN (18:00)
--- NOTE | 2018-09-05 19:18 | NUR ---
PATIENT NOTED WITH HR OF 117. ACCEPTED THE PRN METOPROLOL THIS TIME. HR RECHECKED WITH THE READING OF 107. BED SIDE REPORT GIVEN TO ON COMING NURSE.
--- NOTE | 2018-09-05 20:01 | NUR ---
RECEIVED PT IN BED RESTING DENIES PAIN .PT REFUSED TO CHECK BLOOD SUGAR .PT C/O OF BACK PAIN AND INSOMNIA .CALL LIGHT WITHIN REACH .CONTINUE TO MONITOR
[2018-09-05] MEDS: CENTRAL TPN FORMULA 1 BAG IV SCH (21:22)
[2018-09-05] MEDS: ZOLPIDEM TARTRATE 10 MG TAB PO SCH (21:38)
[2018-09-06] VITALS: BP 133/61
[2018-09-06 03:17] VITALS: BP 133/61
[2018-09-06 04:00] VITALS: BP_SYST 114
[2018-09-06 05:40] LABS: BASOPHILS # (AUTO) 0.1 (0.0-0.1); BASOPHILS % 0.9 % (0.0-1.0); EOSINOPHILS # (AUTO) 0.3 (0.0-0.4); EOSINOPHILS % 2.9 % (0.0-6.0); HEMATOCRIT 35.8 % (34.2-44.1); HEMOGLOBIN 12.2 g/dL (12.0-16.0); LYMPHOCYTES # (AUTO) 1.4 (1.0-3.2); LYMPHOCYTES % 12.8 % (18.0-39.1); MEAN CORPUSCULAR HEMOGLOBIN 30.1 pg (28-32); MEAN CORPUSCULAR HGB CONC 34.1 g/dL (31-35); MEAN CORPUSCULAR VOLUME 88.4 fL (81-99); MONOCYTES % 9.2 % (4.4-11.3); NEUTROPHILS # (AUTO) 7.2 (2.1-6.9); NEUTROPHILS % 67.1 % (38.7-80.0); PLATELET COUNT 295 x10e3/uL (140-360); RED BLOOD COUNT 4.05 x10e6/uL (3.6-5.1); RED CELL DISTRIBUTION WIDTH 14.9 % (11.7-14.4)
[2018-09-06 05:55] LABS: ANION GAP 7.4 mmol/L (8-16); BLOOD UREA NITROGEN 11 mg/dL (7-26); BUN/CREATININE RATIO 21 (6-25); CALCIUM 7.7 mg/dL (8.4-10.2); CARBON DIOXIDE 25 mmol/L (22-29); CHLORIDE 109 mmol/L (98-107); CREATININE, SERUM 0.52 mg/dL (0.57-1.11); EST GLOMERULAR FILTRATION RATE > 60 ML/MIN (60-); GLUCOSE 128 mg/dL (74-118); POTASSIUM 3.4 mmol/L (3.5-5.1); SODIUM 138 mmol/L (136-145)
[2018-09-06] MEDS: VANCOMYCIN 250MG/5ML ORAL SOLN PO SCH ×2 (06:00)
[2018-09-06 07:30] VITALS: BP 130/71
[2018-09-06] MEDS: INSULIN REGULAR, HUMAN 100 UNIT/1 ML 3ML VIAL SQ SCH (07:30)
--- NOTE | 2018-09-06 07:35 | NUR ---
PT UP IN BED ,UPSET READY TO GO HOME,EXPLAINED TO HER WE HAD TO WAIT UNTIL PHYSICAN CAME IN AAND TPN SET UP
[2018-09-06 07:54] VITALS: BP 130/71
[2018-09-06] MEDS: CENTRAL TPN FORMULA 1 BAG IV SCH (08:00)
[2018-09-06] MEDS: AZITHROMYCIN 250 MG TAB PO SCH (08:55)
[2018-09-06] MEDS: CYCLOBENZAPRINE HCL 10 MG TAB PO SCH (08:56)
[2018-09-06] MEDS: DICYCLOMINE HCL 20 MG TAB PO SCH (08:56)
[2018-09-06 09:40] LABS: BAND NEUTROPHILS % (MANUAL) 3 %; EOSINOPHILS % (MANUAL) 4 % (0-7); LYMPHOCYTES % (MANUAL) 14 % (19-48); METAMYELOCYTES % (MANUAL) 2 % (0-0); MONOCYTES % (MANUAL) 4 % (3.4-9.0); NEUTROPHILS % (MANUAL) 71 % (40-74)
[2018-09-06 09:41] LABS: PLATELET MORPHOLOGY COMMENT NORMAL
[2018-09-06 09:42] LABS: ANISOCYTOSIS SLIGHT; PLATELET ESTIMATE ADEQUATE; RBC MORPHOLOGY COMMENT NORMAL
[2018-09-06 12:09] VITALS: BP 113/64
[2018-09-06] MEDS ORDERED: TPN IV ×2 (13:03→13:06)
[2018-09-06] MEDS ORDERED: VANCOCIN HCL250 MG PO (13:03)
[2018-09-06] MEDS ORDERED: POTASSIUM CHLORIDE 20 MEQ TAB CR PO STA (13:09)
--- NOTE | 2018-09-06 15:09 | NUR ---
IMM LETTER EXPLAINED TO PT AND SPOUSE. VERBALIZED UNDERSTANDING. IMM LETTER SIGNED AND COPY TO CHART AND COPY TO PT.
--- NOTE | 2018-09-07 07:31 | Discharge Summary ---
ADMISSION DIAGNOSES: 1. Septic shock, urinary tract infection that is recurrent and has failed outpatient therapy. 2. Short gut syndrome. 3. Hypertension. 4. Bronchopneumonia. DISCHARGE DIAGNOSES: 1. Septic shock, urinary tract infection that is recurrent and has failed outpatient therapy. 2. Short gut syndrome. 3. Hypertension. 4. Bronchopneumonia. 5. Hypokalemia. 6. Insomnia. 7. Candiduria. 8. Clostridium difficile. 9. Rule out flu. 10. Hyponatremia. 11. Hypocalcemia. 12. Hypophosphatemia. HISTORY: The patient has a history of short gut syndrome, recurrent urinary tract infection with failed outpatient therapy, and hypertension. SURGICAL HISTORY: Gastric bypass followed by removal of most of her small bowel due to infection about 10 years ago, right total knee replacement, and hysterectomy. HOSPITAL COURSE: A 72-year-old female, whose health is complicated by short gut syndrome for the last 10 years, presents with recurrent UTI, with failed outpatient therapy. She was admitted by Infectious Disease for PICC line placement and IV antibiotics. She had a fever of 103 at home for the last 2 or 3 days and upon presentation to the ER, WBC was 26, temperature was 102.6, and blood pressure was 74/47. The patient was given a bolus in the ER and admitted to ICU on vasopressin. She was started on vancomycin and Merrem by Infectious Disease and had a PICC line placed. She was also started on TPN due to the short gut syndrome. Case Management was consulted to arrange a TPN to adjust for 12 hours for 90 days. The patient will follow up with Dr. Stoll for weekly CBC, BMP, and mag drawn by her [facility]. He will manage the TPN outpatient. The patient was found to have clostridium difficile and started on vanco p.o. per Infectious Disease. At the time of discharge, the patient still has 2 weeks left of the vancomycin. The patient is feeling much better after the antibiotics and TPN started. On admission, her chest x-ray showed central peribronchovascular thickening and cuffing, underlying pneumonia cannot be excluded. The patient had an x-ray after the right-sided PICC was placed that showed it terminated in the upper SVC. X-ray of the abdomen showed dilated left lower quadrant bowel, may represent small bowel and is concerning for obstruction. Chest x-ray showed low lung volumes with slightly increased patchy left basilar opacity. Blood cultures were negative. Stool culture was sent out for ova and parasite screen, but was pending at the time of discharge. The patient's urine showed cheryl. The patient was discharged home with TPN and p.o. vancomycin. She will follow up with primary care in 1 to 2 weeks, Dr. Gentile as discussed, and Dr. Pritchard as discussed. Vital signs stable. The patient was afebrile. The patient and understand discharge instructions and agreed to plan. Dictated by Amanda Cash NP MD MARIBELL Quiñones/[email or web address] /[id number]
== END 2018-09-06 15:23 | disposition home health service (06) | DRG 871 ==
LOC: ER 02:18 → ERHOLD 04:31 → ICU 19:30 → MED/SURG3 09-03 20:30
PROVIDERS: ADMIT Internal Medicine; ATTEND Internal Medicine
PROC: 02HV33Z Insertion of Infusion Device into Superior Vena Cava, Percutaneous Approach (ICD-10-PCS; principal; 2018-08-31)
PROC: 3E043XZ Introduction of Vasopressor into Central Vein, Percutaneous Approach (ICD-10-PCS; 2018-08-31)
PROC: 3E0436Z Introduction of Nutritional Substance into Central Vein, Percutaneous Approach (ICD-10-PCS; 2018-09-01)
DX: A41.9 Sepsis, unspecified organism (principal); R65.21 Severe sepsis with septic shock; J18.0 Bronchopneumonia, unspecified organism; E43 Unspecified severe protein-calorie malnutrition; N17.9 Acute kidney failure, unspecified; B37.49 Other urogenital candidiasis; K91.2 Postsurgical malabsorption, not elsewhere classified; K95.89 Other complications of other bariatric procedure; A04.72 Enterocolitis due to Clostridium difficile, not specified as recurrent; E87.1 Hypo-osmolality and hyponatremia; E87.2 Acidosis; I10 Essential (primary) hypertension; E87.6 Hypokalemia; G47.00 Insomnia, unspecified; E83.51 Hypocalcemia; E83.39 Other disorders of phosphorus metabolism; M81.0 Age-related osteoporosis without current pathological fracture; G89.29 Other chronic pain; R53.81 Other malaise; K21.9 Gastro-esophageal reflux disease without esophagitis; Z88.2 Allergy status to sulfonamides; Z88.1 Allergy status to other antibiotic agents; Z91.041 Radiographic dye allergy status; Z91.013 Allergy to seafood; Z68.36 Body mass index [BMI] 36.0-36.9, adult
CPT/HCPCS: 36415; 36569; 71045; 74019; 80048; 80053; 80076; 80202; 81001; 82306; 82330; 82550; 82553; 82607; 82746; 82948; 83036; 83540; 83605; 83630; 83735; 83880; 83993; 84100; 84134; 84207; 84252; 84425; 84439; 84443; 84466; 84478; 84484; 84590; 84591; 85025; 85610; 85730; 87040; 87045; 87086; 87177; 87400; 87493; 93005; 93306; 93925; 96372; 97139; 99285; J2405; J2765; J3370; J3475; J3480; J7030

== ENCOUNTER 2018-09-12 18:30 | Observation (INO) | payer MEDICARE ==
[~2018-09-12] VITALS: Ht 165.1 cm; Wt 109.9 kg
[~2018-09-12 18:30] MED LIST changes: +CEPHALEXIN500 MG PO; +CYCLOBENZAPRINE10 MG PO; +LISINOPRIL20 MG PO; +TPN IV; +ULTRAM 50MG50 MG PO; +VANCOCIN HCL250 MG PO; +ZOLPIDEM TARTRA10 MG PO
--- OUTSIDE RECORDS SUMMARY | 2018-09-12 18:34 | XMS REPORT | Continuity of Care Document ---
Author Author [facility] Interface Address Unknown Phone Unavailable Problems Problem Status Onset Date Classification Date Reported Comments Source Medications Medication Details Route Status Patient Instructions Ordering Provider Order Date Source Amoxicillin 250 Mg Capsule Three Times A Day Active [place] 08/18/2018 [facility] Carbamazepine (Tegretol) 100 Mg Tab.chew Three Times A Day Active [facility] Carbamazepine (Tegretol) 200 Mg Tablet Three Times A Day Active [facility] Clonazepam 0.5 Mg Tablet as needed Active [facility] Cyclobenzaprine Hcl (Flexeril) 10 Mg Tablet Daily Active [facility] Dexlansoprazole (Dexilant) 60 Mg Cap. Daily Active [facility] Esomeprazole Magnesium (Nexium) 40 Mg Capsule.dr Pace Active [facility] Lisinopril 10 Mg Tablet Daily Active [facility] Sucralfate 1 Gm Tablet Four Times Daily Active [facility] Allergies, Adverse Reactions, Alerts Substance Category Reaction Severity Reaction type Status Date Reported Comments Source Sulfa (Sulfonamide Antibiotics) "COMA" Severe Allergy to Substance Active 08/18/2018 [facility] Immunizations Immunization Date Given Site Status Last Updated Comments Source Results Order Name Results Value Reference Range Date Interpretation Comments Source Blood leukocytes automated count (number/volume) 7.79 4.8 - 10.8 08/18/2018 [facility] Blood erythrocytes automated count (number/volume) 4.70 3.6 - 5.1 08/18/2018 [facility] Blood hemoglobin measurement (moles/volume) 14.0 12.0 - 16.0 08/18/2018 [facility] Automated blood hematocrit (volume fraction) 41.6 34.2 - 44.1 08/18/2018 [facility] Automated erythrocyte mean corpuscular volume 88.5 81 - 99 08/18/2018 [facility] Automated erythrocyte mean corpuscular hemoglobin (mass per erythrocyte) 29.8 28 - 32 08/18/2018 [facility] Automated erythrocyte mean corpuscular hemoglobin concentration measurement (mass/volume) 33.7 31 - 35 08/18/2018 [facility] RDW BldCo-Rto 14.2 11.7 - 14.4 08/18/2018 [facility] Automated blood platelet count (count/volume) 253 140 - 360 08/18/2018 [facility] Automated blood segmented neutrophil count as percentage of total leukocytes 75.8 38.7 - 80.0 08/18/2018 [facility] Automated blood lymphocyte count as percentage ot total leukocytes 12.3 18.0 - 39.1 08/18/2018 [facility] Automated blood monocyte count as percentage of total leukocytes 9.2 4.4 - 11.3 08/18/2018 [facility] Automated blood eosinophil count as percentage of total leukocytes 1.8 0.0 - 6.0 08/18/2018 [facility] Automated blood basophil count as percentage of total leukocytes 0.6 0.0 - 1.0 08/18/2018 [facility] IM GRANULOCYTES % 0.3 0.0 - 1.0 08/18/2018 [facility] Automated blood neutrophil count 5.9 2.1 - 6.9 08/18/2018 [facility] Blood lymphocytes count (number/volume) 1.0 1.0 - 3.2 08/18/2018 [facility] Blood monocytes automated count (number/volume) 0.7 0.2 - 0.8 08/18/2018 [facility] Automated blood eosinophil count 0.1 0.0 - 0.4 08/18/2018 [facility] Automated blood basophil count (count/volume) 0.1 0.0 - 0.1 08/18/2018 [facility] Absolute Immature Granulocyte (auto 0.02 0 - 0.1 08/18/2018 [facility] Prothrombin time (PT) in platelet poor plasma by coagulation assay 14.4 11.9 - 14.5 08/18/2018 [facility] INR in Platelet poor plasma by Coagulation assay 1.03 08/18/2018 [facility] Activated partial thromboplastin time (aPTT) in platelet poor plasma bycoagulation assay 31.6 23.8 - 35.5 08/18/2018 [facility] Fibrin D-dimer DDU measurement in platelet poor plasma (mass/volume) 0.34 0.00 - 0.45 08/18/2018 [facility] Urine color determination ORANGE YELLOW 08/18/2018 [facility] Urine clarity SL CLOUDY CLEAR 08/18/2018 [facility] Specific gravity of Urine by Test strip 1.010 1.010 - 1.025 08/18/2018 [facility] Urine pH measurement by automated test strip 6 5 - 7 08/18/2018 [facility] Urine leukocyte esterase detection by dipstick 2+ NEGATIVE 08/18/2018 [facility] Urine nitrite detection POSITIVE NEGATIVE 08/18/2018 [facility] Urine protein measurement by test strip (mass/volume) 2+ NEGATIVE 08/18/2018 [facility] Urine glucose detection 1+ NEGATIVE 08/18/2018 [facility] Urine ketones detection by automated test strip NEGATIVE NEGATIVE 08/18/2018 [facility] Urine urobilinogen measurement by test strip (mass/volume) 1 0.2 - 1 08/18/2018 [facility] Urine total bilirubin measurement (mass/volume) NEGATIVE NEGATIVE 08/18/2018 [facility] Urine erythrocytes detection 3+ NEGATIVE 08/18/2018 [facility] Automated urine sediment leukocyte count by microscopy (number/high power field) >50 0 - 5 08/18/2018 [facility] Erythrocytes detection in urine sediment by light microscopy >50 0 - 5 08/18/2018 [facility] Bacteria detection in urine sediment by light microscopy FEW NONE 08/18/2018 [facility] Epithelial cells detection in urine sediment by light microscopy MANY NONE 08/18/2018 [facility] Transitional cells detection in urine sediment by light microscopy MANY NONE 08/18/2018 [facility] Serum or plasma sodium measurement (moles/volume) 134 136 - 145 08/18/2018 [facility] Serum or plasma potassium measurement (moles/volume) 3.6 3.5 - 5.1 08/18/2018 [facility] Serum or plasma chloride measurement (moles/volume) 105 98 - 107 08/18/2018 [facility] Serum or plasma carbon dioxide, total measurement (moles/volume) 17 22 - 29 08/18/2018 [facility] Serum or plasma anion gap 15.6 8 - 16 08/18/2018 [facility] Serum or plasma urea nitrogen measurement (mass/volume) 10 7 - 26 08/18/2018 [facility] Serum or plasma creatinine measurement (mass/volume) 0.87 0.57 - 1.11 08/18/2018 [facility] Serum or plasma urea nitrogen/creatinine mass ratio 11 6 - 25 08/18/2018 [facility] Estimated glomerular filtration rate (GFR) determination > 60 60 08/18/2018 [facility] Glucose measurement 198 74 - 118 08/18/2018 [facility] Serum or plasma calcium measurement (mass/volume) 8.9 8.4 - 10.2 08/18/2018 [facility] Serum or plasma magnesium measurement (mass/volume) 1.6 1.3 - 2.1 08/18/2018 [facility] Serum or plasma total bilirubin measurement (mass/volume) 0.9 0.2 - 1.2 08/18/2018 [facility] Aspartate Amino Transf (AST/SGOT) 41 5 - 34 08/18/2018 [facility] Serum or plasma alanine aminotransferase measurement (enzymatic activity/volume) 47 0 - 55 08/18/2018 [facility] Serum or plasma protein measurement (mass/volume) 6.6 6.5 - 8.1 08/18/2018 [facility] Serum or plasma albumin measurement (mass/volume) 3.8 3.5 - 5.0 08/18/2018 [facility] Plasma globulin measurement (mass/volume) 2.8 2.3 - 3.5 08/18/2018 [facility] Serum or plasma albumin/globulin mass ratio 1.4 0.8 - 2.0 08/18/2018 [facility] Serum or plasma alkaline phosphatase measurement (enzymatic activity/volume) 103 40 - 150 08/18/2018 [facility] BNP Bld-mCnc 53.4 0 - 100 08/18/2018 [facility] Serum or plasma creatine kinase measurement (enzymatic activity/volume) 32 29 - 168 08/18/2018 [facility] Serum or plasma creatine kinase MB measurement (mass/volume) 0.90 0 - 5.0 08/18/2018 [facility] Troponin I measurement by highly sensitive enzyme immunoassay 0.006 0 - 0.300 08/18/2018 [facility] Serum or plasma thyrotropin measurement by detection limit <=0.005 miu/l (units/volume) 1.703 0.350 - 4.940 08/18/2018 [facility] Urine color determination KEELEY YELLOW 07/03/2018 [facility] Urine clarity HAZY CLEAR 07/03/2018 [facility] Specific gravity of Urine by Test strip 1.030 1.010 - 1.025 07/03/2018 [facility] Urine pH measurement by automated test strip 5 5 - 7 07/03/2018 [facility] Urine leukocyte esterase detection by dipstick TRACE NEGATIVE 07/03/2018 [facility] Urine nitrite detection POSITIVE NEGATIVE 07/03/2018 [facility] Urine protein measurement by test strip (mass/volume) 1+ NEGATIVE 07/03/2018 [facility] Urine glucose detection NEGATIVE NEGATIVE 07/03/2018 [facility] Urine ketones detection by automated test strip 3+ NEGATIVE 07/03/2018 [facility] Urine urobilinogen measurement by test strip (mass/volume) 1 0.2 - 1 07/03/2018 [facility] Urine total bilirubin measurement (mass/volume) 1+ NEGATIVE 07/03/2018 [facility] Urine erythrocytes detection NEGATIVE NEGATIVE 07/03/2018 [facility] Automated urine sediment leukocyte count by microscopy (number/high power field) 0-5 0 - 5 07/03/2018 [facility] Erythrocytes detection in urine sediment by light microscopy NONE 0 - 5 07/03/2018 [facility] Bacteria detection in urine sediment by light microscopy NONE NONE 07/03/2018 [facility] Epithelial cells detection in urine sediment by light microscopy RARE NONE 07/03/2018 [facility] Lactic Acid Level 11.9 4.5 - 19.8 07/03/2018 [facility] Blood erythrocytes automated count (number/volume) 4.94 3.6 - 5.1 07/03/2018 [facility] Blood hemoglobin measurement (moles/volume) 15.2 12.0 - 16.0 07/03/2018 [facility] Automated blood hematocrit (volume fraction) 44.5 34.2 - 44.1 07/03/2018 [facility] Automated erythrocyte mean corpuscular volume 90.1 81 - 99 07/03/2018 [facility] Automated erythrocyte mean corpuscular hemoglobin (mass per erythrocyte) 30.8 28 - 32 07/03/2018 [facility] Automated erythrocyte mean corpuscular hemoglobin concentration measurement (mass/volume) 34.2 31 - 35 07/03/2018 [facility] RDW BldCo-Rto 12.6 11.7 - 14.4 07/03/2018 [facility] Automated blood platelet count (count/volume) 222 140 - 360 07/03/2018 [facility] Automated blood segmented neutrophil count as percentage of total leukocytes 86.3 38.7 - 80.0 07/03/2018 [facility] Automated blood lymphocyte count as percentage ot total leukocytes 5.1 18.0 - 39.1 07/03/2018 [facility] Automated blood monocyte count as percentage of total leukocytes 7.8 4.4 - 11.3 07/03/2018 [facility] Automated blood eosinophil count as percentage of total leukocytes 0.2 0.0 - 6.0 07/03/2018 [facility] Automated blood basophil count as percentage of total leukocytes 0.2 0.0 - 1.0 07/03/2018 [facility] IM GRANULOCYTES % 0.4 0.0 - 1.0 07/03/2018 [facility] Automated blood neutrophil count 10.9 2.1 - 6.9 07/03/2018 [facility] Blood lymphocytes count (number/volume) 0.6 1.0 - 3.2 07/03/2018 [facility] Blood monocytes automated count (number/volume) 1.0 0.2 - 0.8 07/03/2018 [facility] Automated blood eosinophil count 0.0 0.0 - 0.4 07/03/2018 [facility] Automated blood basophil count (count/volume) 0.0 0.0 - 0.1 07/03/2018 [facility] Absolute Immature Granulocyte (auto 0.05 0 - 0.1 07/03/2018 [facility] Prothrombin time (PT) in platelet poor plasma by coagulation assay 15.3 11.9 - 14.5 07/03/2018 [facility] INR in Platelet poor plasma by Coagulation assay 1.11 07/03/2018 [facility] Activated partial thromboplastin time (aPTT) in platelet poor plasma bycoagulation assay 31.9 23.8 - 35.5 07/03/2018 [facility] Serum or plasma sodium measurement (moles/volume) 133 136 - 145 07/03/2018 [facility] Serum or plasma potassium measurement (moles/volume) 4.0 3.5 - 5.1 07/03/2018 [facility] Serum or plasma chloride measurement (moles/volume) 97 98 - 107 07/03/2018 [facility] Serum or plasma carbon dioxide, total measurement (moles/volume) 23 22 - 29 07/03/2018 [facility] Serum or plasma anion gap 17.0 8 - 16 07/03/2018 [facility] Serum or plasma urea nitrogen measurement (mass/volume) 10 7 - 26 07/03/2018 [facility] Serum or plasma creatinine measurement (mass/volume) 0.78 0.57 - 1.11 07/03/2018 [facility] Serum or plasma urea nitrogen/creatinine mass ratio 13 6 - 25 07/03/2018 [facility] Estimated glomerular filtration rate (GFR) determination > 60 60 07/03/2018 [facility] Glucose measurement 141 74 - 118 07/03/2018 [facility] Serum or plasma calcium measurement (mass/volume) 9.6 8.4 - 10.2 07/03/2018 [facility] Lactic Acid Level 11.9 4.5 - 19.8 07/03/2018 [facility] Serum or plasma magnesium measurement (mass/volume) 1.9 1.3 - 2.1 07/03/2018 [facility] Serum or plasma total bilirubin measurement (mass/volume) 1.4 0.2 - 1.2 07/03/2018 [facility] Aspartate Amino Transf (AST/SGOT) 19 5 - 34 07/03/2018 [facility] Serum or plasma alanine aminotransferase measurement (enzymatic activity/volume) 31 0 - 55 07/03/2018 [facility] Serum or plasma protein measurement (mass/volume) 7.3 6.5 - 8.1 07/03/2018 [facility] Serum or plasma albumin measurement (mass/volume) 3.6 3.5 - 5.0 07/03/2018 [facility] Plasma globulin measurement (mass/volume) 3.7 2.3 - 3.5 07/03/2018 [facility] Serum or plasma albumin/globulin mass ratio 1.0 0.8 - 2.0 07/03/2018 [facility] Serum or plasma alkaline phosphatase measurement (enzymatic activity/volume) 85 40 - 150 07/03/2018 [facility] BNP Bld-mCnc 11.9 0 - 100 07/03/2018 [facility] Serum or plasma creatine kinase measurement (enzymatic activity/volume) 32 29 - 168 07/03/2018 [facility] Serum or plasma creatine kinase MB measurement (mass/volume) 0.60 0 - 5.0 07/03/2018 [facility] Troponin I measurement by highly sensitive enzyme immunoassay 0.017 0 - 0.300 07/03/2018 [facility] Activated partial thromboplastin time (aPTT) in platelet poor plasma bycoagulation assay Activated partial thromboplastin time (aPTT) in platelet poor plasma bycoagulation assay 26.3 23.8 - 35.5 11/26/2017 [facility] Automated blood basophil count as percentage of total leukocytes Automated blood basophil count as percentage of total leukocytes 0.1 0.0 - 1.0 11/26/2017 [facility] Automated blood eosinophil count as percentage of total leukocytes Automated blood eosinophil count as percentage of total leukocytes 0.2 0.0 - 6.0 11/26/2017 [facility] Automated blood hematocrit (volume fraction) Automated blood hematocrit (volume fraction) 43.4 34.2 - 44.1 11/26/2017 [facility] Automated blood lymphocyte count as percentage ot total leukocytes Automated blood lymphocyte count as percentage ot total leukocytes 1.0 18.0 - 39.1 11/26/2017 [facility] Automated blood monocyte count as percentage of total leukocytes Automated blood monocyte count as percentage of total leukocytes 0.7 4.4 - 11.3 11/26/2017 [facility] Automated blood platelet count (count/volume) Automated blood platelet count (count/volume) 250 140 - 360 11/26/2017 [facility] Automated blood segmented neutrophil count as percentage of total leukocytes Automated blood segmented neutrophil count as percentage of total leukocytes 6.4 38.7 - 80.0 11/26/2017 [facility] Automated erythrocyte mean corpuscular hemoglobin (mass per erythrocyte) Automated erythrocyte mean corpuscular hemoglobin (mass per erythrocyte) 31.3 28 - 32 11/26/2017 [facility] Automated erythrocyte mean corpuscular hemoglobin concentration measurement (mass/volume) Automated erythrocyte mean corpuscular hemoglobin concentration measurement (mass/volume) 34.3 31 - 35 11/26/2017 [facility] Automated erythrocyte mean corpuscular volume Automated erythrocyte mean corpuscular volume 91.2 81 - 99 11/26/2017 [facility] Automated urine sediment leukocyte count by microscopy (number/high power field) Automated urine sediment leukocyte count by microscopy (number/high power field) NONE 0 - 5 11/26/2017 [facility] Bacteria detection in urine sediment by light microscopy Bacteria detection in urine sediment by light microscopy NONE NONE 11/26/2017 [facility] Blood erythrocytes automated count (number/volume) Blood erythrocytes automated count (number/volume) 4.76 3.6 - 5.1 11/26/2017 [facility] Blood hemoglobin measurement (moles/volume) Blood hemoglobin measurement (moles/volume) 14.9 12.0 - 16.0 11/26/2017 [facility] Blood leukocytes automated count (number/volume) Blood leukocytes automated count (number/volume) 8.36 4.8 - 10.8 11/26/2017 [facility] Epithelial cells detection in urine sediment by light microscopy Epithelial cells detection in urine sediment by light microscopy MODERATE NONE 11/26/2017 [facility] Erythrocytes detection in urine sediment by light microscopy Erythrocytes detection in urine sediment by light microscopy NONE 0 - 5 11/26/2017 [facility] Estimated glomerular filtration rate (GFR) determination Estimated glomerular filtration rate (GFR) determination null 60 11/26/2017 [facility] Glucose measurement Glucose measurement 136 74 - 118 11/26/2017 [facility] INR in Platelet poor plasma by Coagulation assay INR in Platelet poor plasma by Coagulation assay 1.14 11/26/2017 [facility] Plasma globulin measurement (mass/volume) Plasma globulin measurement (mass/volume) 2.9 2.3 - 3.5 11/26/2017 [facility] Prothrombin time (PT) in platelet poor plasma by coagulation assay Prothrombin time (PT) in platelet poor plasma by coagulation assay 13.7 11.9 - 14.5 11/26/2017 [facility] Serum or plasma alanine aminotransferase measurement (enzymatic activity/volume) Serum or plasma alanine aminotransferase measurement (enzymatic activity/volume) 75 0 - 55 11/26/2017 [facility] Serum or plasma albumin measurement (mass/volume) Serum or plasma albumin measurement (mass/volume) 4.3 3.5 - 5.0 11/26/2017 [facility] Serum or plasma albumin/globulin mass ratio Serum or plasma albumin/globulin mass ratio 1.5 0.8 - 2.0 11/26/2017 [facility] Serum or plasma alkaline phosphatase measurement (enzymatic activity/volume) Serum or plasma alkaline phosphatase measurement (enzymatic activity/volume) 99 40 - 150 11/26/2017 [facility] Serum or plasma anion gap Serum or plasma anion gap 13.2 8 - 16 11/26/2017 [facility] Serum or plasma calcium measurement (mass/volume) Serum or plasma calcium measurement (mass/volume) 9.9 8.4 - 10.2 11/26/2017 [facility] Serum or plasma carbon dioxide, total measurement (moles/volume) Serum or plasma carbon dioxide, total measurement (moles/volume) 24 22 - 29 11/26/2017 [facility] Serum or plasma chloride measurement (moles/volume) Serum or plasma chloride measurement (moles/volume) 109 98 - 107 11/26/2017 [facility] Serum or plasma creatine kinase MB measurement (mass/volume) Serum or plasma creatine kinase MB measurement (mass/volume) 0.60 0 - 5.0 11/26/2017 [facility] Serum or plasma creatine kinase measurement (enzymatic activity/volume) Serum or plasma creatine kinase measurement (enzymatic activity/volume) 35 29 - 168 11/26/2017 [facility] Serum or plasma creatinine measurement (mass/volume) Serum or plasma creatinine measurement (mass/volume) 0.78 0.57 - 1.11 11/26/2017 [facility] Serum or plasma potassium measurement (moles/volume) Serum or plasma potassium measurement (moles/volume) 4.2 3.5 - 5.1 11/26/2017 [facility] Serum or plasma protein measurement (mass/volume) Serum or plasma protein measurement (mass/volume) 7.2 6.5 - 8.1 11/26/2017 [facility] Serum or plasma sodium measurement (moles/volume) Serum or plasma sodium measurement (moles/volume) 142 136 - 145 11/26/2017 [facility] Serum or plasma total bilirubin measurement (mass/volume) Serum or plasma total bilirubin measurement (mass/volume) 0.7 0.2 - 1.2 11/26/2017 [facility] Serum or plasma urea nitrogen measurement (mass/volume) Serum or plasma urea nitrogen measurement (mass/volume) 11 7 - 26 11/26/2017 [facility] Serum or plasma urea nitrogen/creatinine mass ratio Serum or plasma urea nitrogen/creatinine mass ratio 14 6 - 25 11/26/2017 [facility] Specific gravity of Urine by Test strip Specific gravity of Urine by Test strip 1.015 1.010 - 1.025 11/26/2017 [facility] Troponin I measurement by highly sensitive enzyme immunoassay Troponin I measurement by highly sensitive enzyme immunoassay null 0 - 0.300 11/26/2017 [facility] Urine clarity Urine clarity CLEAR CLEAR 11/26/2017 [facility] Urine color determination Urine color determination YELLOW YELLOW 11/26/2017 [facility] [facility] Urine erythrocytes detection Urine erythrocytes detection NEGATIVE NEGATIVE 11/26/2017 [facility] Urine glucose detection Urine glucose detection NEGATIVE NEGATIVE 11/26/2017 [facility] Urine ketones detection by automated test strip Urine ketones detection by automated test strip NEGATIVE NEGATIVE 11/26/2017 [facility] Urine leukocyte esterase detection by dipstick Urine leukocyte esterase detection by dipstick NEGATIVE NEGATIVE 11/26/2017 [facility] Urine nitrite detection Urine nitrite detection NEGATIVE NEGATIVE 11/26/2017 [facility] Urine pH measurement by automated test strip Urine pH measurement by automated test strip 5 5 - 7 11/26/2017 [facility] Urine protein measurement by test strip (mass/volume) Urine protein measurement by test strip (mass/volume) NEGATIVE NEGATIVE 11/26/2017 [facility] Urine total bilirubin measurement (mass/volume) Urine total bilirubin measurement (mass/volume) NEGATIVE NEGATIVE 11/26/2017 [facility] Urine urobilinogen measurement by test strip (mass/volume) Urine urobilinogen measurement by test strip (mass/volume) 0.2 0.2 - 1 11/26/2017 [facility] Red Cell Distribution Width 12.9 11.7 - 14.4 11/26/2017 [facility] IM GRANULOCYTES % 0.0 0.0 - 1.0 11/26/2017 [facility] Aspartate Amino Transf (AST/SGOT) 59 5 - 34 11/26/2017 [facility] B-Type Natriuretic Peptide 19.4 0 - 100 11/26/2017 [facility] Bacterial urine culture Urine Culture [facility] Vital Signs Vital Sign Value Date Comments Source Encounters Location Location Details Encounter Type Encounter Number Reason For Visit Attending Provider ADM Date DC Date Status Source Departed Emergency Room [id number] ANNA WATT MD 11/26/2017 11/26/2017 [facility] Departed Emergency Room [id number] GUILLERMO BEY MD 12/24/2017 12/25/2017 [facility] Departed Emergency Room [id number] ANNA WATT MD 07/03/2018 07/03/2018 [facility] Departed Emergency Room [id number] HARRISON FALK MD 08/18/2018 08/18/2018 [facility] Procedures Procedure Code Date Perfomer Comments Source Computed tomography of brain without radiopaque contrast [id number] 07/03/2018 [facility] Computed tomography of cervical spine without contrast [id number] 07/03/2018 [facility] Computed tomography of thoracic spine without contrast [id number] 07/03/2018 [facility] Computed tomography of lumbar spine without contrast [id number] 07/03/2018 [facility] X-ray of chest, single view [id number] 07/03/2018 [facility]
[2018-09-12] MEDS ORDERED: SODIUM CHLORIDE 0.9% 1000ML 1,000 ML ONE (18:54)
[2018-09-12] MEDS ORDERED: ACETAMINOPHEN 1000 MG/100 ML IV STA (18:55)
[2018-09-12] MEDS ORDERED: SODIUM CHLORIDE 0.9% 1000ML 1,000 ML IV ONE ×2 (19:00)
[2018-09-12 19:14] LABS: BASOPHILS % 0.3 % (0.0-1.0); EOSINOPHILS % 0.1 % (0.0-6.0); HEMATOCRIT 39.1 % (34.2-44.1); LYMPHOCYTES # (AUTO) 0.4 (1.0-3.2); LYMPHOCYTES % 4.3 % (18.0-39.1); MEAN CORPUSCULAR HEMOGLOBIN 30.2 pg (28-32); MEAN CORPUSCULAR HGB CONC 33.2 g/dL (31-35); MEAN CORPUSCULAR VOLUME 90.7 fL (81-99); MONOCYTES # (AUTO) 0.7 (0.2-0.8); MONOCYTES % 6.9 % (4.4-11.3); NEUTROPHILS # (AUTO) 8.7 (2.1-6.9); NEUTROPHILS % 87.8 % (38.7-80.0); PLATELET COUNT 309 x10e3/uL (140-360); RED BLOOD COUNT 4.31 x10e6/uL (3.6-5.1); RED CELL DISTRIBUTION WIDTH 16.5 % (11.7-14.4)
--- NOTE | 2018-09-12 19:29 | NUR ---
BEDSIDE REPORT GIVEN TO DELL NAIR BANK COMPLIANCE OFFICER NURSE.
[2018-09-12 19:32] LABS: ALANINE AMINOTRANSFERASE 23 IU/L (0-55); ALBUMIN 2.5 g/dL (3.5-5.0); ALKALINE PHOSPHATASE 69 IU/L (40-150); BLOOD UREA NITROGEN 6 mg/dL (7-26); BUN/CREATININE RATIO 8 (6-25); CALCIUM 7.8 mg/dL (8.4-10.2); CARBON DIOXIDE 24 mmol/L (22-29); CHLORIDE 99 mmol/L (98-107); CREATININE, SERUM 0.75 mg/dL (0.57-1.11); EST GLOMERULAR FILTRATION RATE > 60 ML/MIN (60-); GLUCOSE 156 mg/dL (74-118); SODIUM 132 mmol/L (136-145)
--- NOTE | 2018-09-12 19:47 | Diagnostic Imaging Report ---
A single frontal view of the chest. HISTORY: Tachypnea, fever, tachycardia COMPARISON: Chest radiograph September 04, 2017. DISCUSSION: Portable technique, limits sensitivity of the exam. Soft tissue attenuation partially limits sensitivity of the exam. Left anterior oblique rotation. Overlying monitoring leads. Tubes/Lines: None Lungs and pleura: Markedly low lung volumes result in bibasilar vascular crowding, accentuation of the pulmonary interstitial markings, central pulmonary vasculature, and the cardiac silhouette. Allowing for these limitations, the findings are as follows: No evidence of a consolidative pneumonia or pulmonary alveolar edema. No definite pleural effusion or pneumothorax is identified. Heart and mediastinum: The cardiomediastinal silhouette appears unremarkable. Bones and soft tissues: Appear unremarkable, given this limited exam. IMPRESSION: No acute radiographic abnormality, when allowing for the markedly low lung volumes. Signed by: Dr. Abhinav Goyal D.O., M.M.M. on 09/12/2018 7:43 PM
[2018-09-12] MEDS ORDERED: VANCOMYCIN 1GM/NS 250 ML 250 ML IV STA (20:48)
[2018-09-12] MEDS ORDERED: ASPIRIN 81 MG CHEW TAB PO ONE (21:00)
[2018-09-12] MEDS ORDERED: METRONIDAZOLE 750MG/NS 150ML 150 ML IV NR (21:00)
[2018-09-12 21:22] LABS: CREATINE KINASE MB 0.5 ng/mL (0-5.0)
[2018-09-12] MEDS ORDERED: POTASSIUM CHLORIDE 20 MEQ TAB CR PO STA (22:26)
[2018-09-12] MEDS ORDERED: POTASSIUM CHLORIDE 20MEQ/100ML 100 ML IV ONE (22:30)
[2018-09-12] MEDS: VANCOMYCIN 250MG/5ML ORAL SOLN PO SCH (23:11)
[2018-09-13] VITALS (7 sets, daily range): BP systolic 139–142; BP diastolic 65–82
[2018-09-13] MEDS ORDERED: SODIUM CHLORIDE 0.9% 100 ML ONE (00:04)
[2018-09-13] MEDS ORDERED: ACETAMINOPHEN 325 MG TAB PO PRN ×2 (05:45→14:45)
[2018-09-13] MEDS: VANCOMYCIN 250MG/5ML ORAL SOLN PO SCH (05:53)
[2018-09-13 06:46] LABS: BASOPHILS % 0.5 % (0.0-1.0); EOSINOPHILS % 0.1 % (0.0-6.0); HEMATOCRIT 35.8 % (34.2-44.1); HEMOGLOBIN 12.1 g/dL (12.0-16.0); LYMPHOCYTES # (AUTO) 0.4 (1.0-3.2); LYMPHOCYTES % 4.8 % (18.0-39.1); MEAN CORPUSCULAR HEMOGLOBIN 30.6 pg (28-32); MEAN CORPUSCULAR HGB CONC 33.8 g/dL (31-35); MEAN CORPUSCULAR VOLUME 90.4 fL (81-99); MONOCYTES # (AUTO) 0.6 (0.2-0.8); MONOCYTES % 7.3 % (4.4-11.3); NEUTROPHILS # (AUTO) 6.7 (2.1-6.9); NEUTROPHILS % 86.9 % (38.7-80.0); PLATELET COUNT 245 x10e3/uL (140-360); RED BLOOD COUNT 3.96 x10e6/uL (3.6-5.1); RED CELL DISTRIBUTION WIDTH 16.7 % (11.7-14.4)
[2018-09-13 07:10] LABS: ALANINE AMINOTRANSFERASE 20 IU/L (0-55); ALBUMIN 2.2 g/dL (3.5-5.0); ALKALINE PHOSPHATASE 57 IU/L (40-150); ANION GAP 10.3 mmol/L (8-16); BLOOD UREA NITROGEN 5 mg/dL (7-26); BUN/CREATININE RATIO 8 (6-25); CALCIUM 7.4 mg/dL (8.4-10.2); CARBON DIOXIDE 21 mmol/L (22-29); CHLORIDE 105 mmol/L (98-107); CREATININE, SERUM 0.62 mg/dL (0.57-1.11); EST GLOMERULAR FILTRATION RATE > 60 ML/MIN (60-); GLUCOSE 141 mg/dL (74-118); MAGNESIUM 1.4 MG/DL (1.3-2.1); PHOSPHORUS 2.6 MG/DL (2.3-4.7); POTASSIUM 3.3 mmol/L (3.5-5.1); SODIUM 133 mmol/L (136-145)
[2018-09-13 07:17] LABS: CREATINE KINASE MB 0.6 ng/mL (0-5.0)
--- NOTE | 2018-09-13 07:19 | NUR ---
WALKING ROUNDS WITH ROSIE SHARPE
[2018-09-13] MEDS ORDERED: DEXTROSE 5%/0.45% SOD CHL 1,000 ML IV ONE (10:15)
--- NOTE | 2018-09-13 10:55 | NUR ---
PER DR MARIAA GRIFFITH CONSULT WITH DR. OSBORN FOR C DIFF, ORDER D5 1/2 NS 75 mL/HR, FLAGYL 500 MG Q6H PO, D/C NPO AND START PT ON CLEAR LIQUID DIET
[2018-09-13] MEDS: METRONIDAZOLE 500 MG TAB PO SCH ×2 (11:40→18:41)
[2018-09-13] MEDS ORDERED: VANCOMYCIN 250MG/5ML ORAL SOLN PO SCH (12:00)
[2018-09-13] MEDS ORDERED: PANTOPRAZOLE 40 MG 10ML VIAL IV STA (13:18)
[2018-09-13] MEDS ORDERED: OCTREOTIDE ACETATE 500 MCG in SODIUM CHLORIDE 0.9% 250ML 250 ML IV STA (13:18)
[2018-09-13] MEDS ORDERED: OCTREOTIDE ACETATE 0.1 MG/ML 100MCG AMP IV SCH ×2 (13:30)
[2018-09-13] MEDS ORDERED: SODIUM CHLORIDE 0.9% 250ML 250 ML IV ONE (13:30)
--- NOTE | 2018-09-13 14:34 | NUR ---
PER DR LEROY D/C NPO PUT PT ON REG DIET, TYLENOL 650 MG PO Q4H PRN FEVER/PAIN, STRAIGHT CATH FOR URINE SAMPLE
--- NOTE | 2018-09-13 14:35 | NUR ---
PER DR LEROY CONTINUE TO MONITOR PT FOR FEVER/HR
[2018-09-13 15:56] LABS: CREATINE KINASE MB 0.7 ng/mL (0-5.0)
[2018-09-13 20:21] LABS: CLARITY,URINE SL CLOUDY (CLEAR); COLOR,URINE YELLOW (YELLOW); LEUKOCYTE ESTERASE ,URINE TRACE (NEGATIVE); NITRITE,URINE NEGATIVE (NEGATIVE); PROTEIN,URINE DIPSTICK TRACE (NEGATIVE)
[2018-09-13 20:22] LABS: BILIRUBIN,URINE 1+ (NEGATIVE); KETONES,URINE NEGATIVE (NEGATIVE); URINE UROBILINOGEN 0.2 mg/dL (0.2 - 1)
[2018-09-13 20:32] LABS: BACTERIA,URINE MANY /HPF; EPITHELIAL CELLS,URINE MODERATE /LPF; TRANSITIONAL EPI CELLS,URINE FEW
[2018-09-13] MEDS ORDERED: HYDRALAZINE HCL 20 MG/ML VIAL IV PRN (21:30)
[2018-09-13] MEDS ORDERED: ONDANSETRON HCL INJ 2MG/ML 2ML 2 MG/ML VIAL IV PRN (21:30)
--- NOTE | 2018-09-13 22:06 | Consultation ---
DATE OF CONSULTATION: Gastroenterology Consultation REASON FOR CONSULTATION: Clostridium difficile. HISTORY OF PRESENT ILLNESS: Ms. 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 She had trouble doing TPN at home and has been following up with Dr. Gentile for fluids and vitamins. She notes she has some chronic diarrhea secondary to the short gut, however, she also has Clostridium difficile and recurrent UTIs. She was actually able to take all of her medications at home including her vancomycin. Unfortunately, she developed abdominal pain, nausea, and worsening of the diarrhea. She denies any prior history of inflammatory bowel disease. PAST MEDICAL HISTORY: 1. Short-gut syndrome. 2. History of Clostridium difficile. 3. Bariatric status. 4. Gastric dumping. 5. Recurrent UTIs. 6. Osteoporosis. 7. Hypertension. MEDICATIONS: Reviewed. Please see MAR medication reconciliation form. ALLERGIES: REVIEWED. SURGICAL HISTORY: Includes gastric bypass, cholecystectomy, hysterectomy, and appendectomy. FAMILY HISTORY: Positive for hypertension. SOCIAL HISTORY: No alcohol, tobacco, or illicit substances. REVIEW OF SYSTEMS: A 12-system review is positive for fevers at home, otherwise, unremarkable, except for HPI. No generalized weakness. PHYSICAL EXAMINATION: GENERAL: Pleasant, alert and oriented, in no acute distress. HEENT: Pupils are equal, round, and reactive to light. NECK: Supple. LUNGS: Clear. CARDIOVASCULAR: S1 and S2. ABDOMEN: Protuberant, soft, some scar tissue noted, mildly tender throughout the lower abdomen. No rebound, guarding, or mass. EXTREMITIES: No clubbing, cyanosis or edema. PSYCHIATRIC: Calm, cooperative. NEUROLOGIC: Intact. HEMATOLOGY/ONCOLOGIC: No bruising or adenopathy. The electronic health records were reviewed for laboratory and radiologic studies as well as history. ASSESSMENT: 1. Recurrent Clostridium difficile. 2. Short-gut syndrome. 3. Recurrent urinary tract infections. 4. [id number]-hw-[id number] protein-calorie malnutrition. PLAN: At the current time, we will follow up Dr. Gentile's recommendation for the Clostridium difficile. We will have her see Nutrition. She will need to continue with supplementation. Thank you very much for asking me to see Ms. Page. Any questions or concerns, please do not hesitate to contact me. Felisa Fagan MD RLS/WOJCIECH /[id number]
--- NOTE | 2018-09-13 22:36 | Consultation ---
DATE OF CONSULTATION: REASON FOR CONSULTATION: Sepsis and diarrhea. HISTORY OF PRESENT ILLNESS: This patient is a very pleasant 72-year-old white female, who is known to me from before. The patient comes into the hospital with diarrhea, abdominal pain, fever, and chills. The patient was recently in the hospital. She was diagnosed with C difficile colitis. The patient was supposed to take oral vancomycin. I did see her a few days ago as a followup. At that time, she was doing good. She has no complaint. She told me she was taking her oral vancomycin, but she told the emergency room physician yesterday when she came in with fever, chills, and altered mental status that she was not. I did see her in early hours of the morning and she is doing much better now. She is fully alert and oriented. She said her diarrhea is much better. This patient who has a history of gastric bypass for obesity, cholecystectomy, hysterectomy, appendectomy, gastric dumping syndrome, chronic intestinal malabsorption, recurrent UTI, hypotension or hypertension, osteoporosis. Currently with obesity. She is coming back with diarrhea. The patient, who has history of chronic diarrhea, but apparently it is worse in terms of the fever and chills. So, this patient is being admitted and I am asked to see her. PAST MEDICAL HISTORY: As above. PAST SURGICAL HISTORY: As above. ALLERGIES: CEFTRIAXONE AND SULFA. SOCIAL HISTORY: There is no smoking, drug abuse, or alcohol abuse. FAMILY HISTORY: Otherwise unremarkable. REVIEW OF SYSTEMS: GENERAL: At the present time, she is doing much better. HEENT: There is no headache, visual changes, or hearing changes. GI: There is no nausea. She said her diarrhea is better. She has some abdominal cramping. : Negative. PHYSICAL EXAMINATION: GENERAL: She is currently alert and oriented, does not seem to be in acute distress. VITAL SIGNS: Stable. Afebrile. HEENT: She is not icteric. NECK: Supple. LUNGS: Clear. HEART: S1 and S2. No murmur. ABDOMEN: Soft. No tenderness. EXTREMITIES: No edema. SKIN: There is no other rash. Physical examination is otherwise unremarkable. IMPRESSION AND PLAN: Diarrhea with fever, concerned about Clostridium difficile colitis in a patient, who has a history of Clostridium difficile colitis. Concerned if some problem could be due for her malabsorption. We will give her oral vancomycin 250 p.o. q.6 and Flagyl 500 IV q.6. We will keep the patient for the next few days. Blood cultures ordered. She seemed to be doing better currently. Further recommendations to follow. MD IBRAHIMA Marion/WOJCIECH /[id number]
[2018-09-13] MEDS: ZOLPIDEM TARTRATE 10 MG TAB PO SCH (23:00)
[2018-09-13] MEDS: TRAMADOL HCL 50 MG TAB PO PRN (23:00)
--- NOTE | 2018-09-13 23:01 | NUR ---
PATIENT C/O PAIN TO THE BACK WITH PAIN SCORE #7, SHE'S ENCOURAGED TO REPOSITION FOR COMFORT. MEDICATED WITH TRAMADOL 1TAB ORDERED. BED ALARM ON, CALL LIGHT WITHIN EASY REACH, INSTRUCTED TO CALL FOR ASSISTANCE NEEDED.
[2018-09-14] VITALS (8 sets, daily range): BP systolic 119–187; BP diastolic 64–94
[2018-09-14] MEDS: VANCOMYCIN 250MG/5ML ORAL SOLN PO SCH ×4 (01:09→17:50)
[2018-09-14] MEDS: METRONIDAZOLE 500 MG TAB PO SCH ×4 (01:09→17:50)
--- NOTE | 2018-09-14 03:14 | NUR ---
PATIENT IS SOUNDLY ASLEEP, SHE'S EASY TO AROUSE. SHE DENIES PAIN, BED ALARM ON, CALL LIGHT WITHIN EASY REACH.
[2018-09-14 05:53] LABS: BASOPHILS # (AUTO) 0.1 (0.0-0.1); BASOPHILS % 0.9 % (0.0-1.0); EOSINOPHILS # (AUTO) 0.1 (0.0-0.4); HEMATOCRIT 35.8 % (34.2-44.1); HEMOGLOBIN 11.6 g/dL (12.0-16.0); LYMPHOCYTES # (AUTO) 0.7 (1.0-3.2); LYMPHOCYTES % 12.3 % (18.0-39.1); MEAN CORPUSCULAR HEMOGLOBIN 29.8 pg (28-32); MEAN CORPUSCULAR HGB CONC 32.4 g/dL (31-35); MONOCYTES # (AUTO) 0.6 (0.2-0.8); MONOCYTES % 10.3 % (4.4-11.3); NEUTROPHILS # (AUTO) 4.2 (2.1-6.9); PLATELET COUNT 212 x10e3/uL (140-360); RED BLOOD COUNT 3.89 x10e6/uL (3.6-5.1); RED CELL DISTRIBUTION WIDTH 16.7 % (11.7-14.4)
[2018-09-14 06:21] LABS: ANION GAP 7.1 mmol/L (8-16); BLOOD UREA NITROGEN 5 mg/dL (7-26); BUN/CREATININE RATIO 8 (6-25); CALCIUM 7.6 mg/dL (8.4-10.2); CARBON DIOXIDE 25 mmol/L (22-29); CHLORIDE 106 mmol/L (98-107); CREATININE, SERUM 0.61 mg/dL (0.57-1.11); EST GLOMERULAR FILTRATION RATE > 60 ML/MIN (60-); GLUCOSE 127 mg/dL (74-118); MAGNESIUM 1.5 MG/DL (1.3-2.1); PHOSPHORUS 2.6 MG/DL (2.3-4.7); POTASSIUM 3.1 mmol/L (3.5-5.1); SODIUM 135 mmol/L (136-145)
--- NOTE | 2018-09-14 07:01 | NUR ---
PATIENT'S POTASSIUM RESULT 3.1, MESSAGE LEFT ON MD PHONE TO CALL FACILITY REGARDING THIS PATIENT'S LOW POTASSIUM. ONCOMING NURSE TO FOLLOW UP WITH THE DOCTOR REGARDING THE LOW POTASSIUM.
[2018-09-14] MEDS: FAMOTIDINE 20 MG TAB PO SCH ×2 (07:50→17:30)
[2018-09-14] MEDS: CYCLOBENZAPRINE HCL 10 MG TAB PO SCH (08:35)
[2018-09-14] MEDS: LISINOPRIL 20 MG TAB PO SCH (08:35)
[2018-09-14] MEDS: ASCORBIC ACID 500 MG TAB PO SCH ×2 (08:35→17:50)
[2018-09-14] MEDS: MEGESTROL ACETATE 40 MG TAB PO SCH ×2 (08:35→17:50)
--- NOTE | 2018-09-14 11:57 | NUR ---
ATTEMPTED TO DO ASSESSMENT ON PATIENT BUT PT REFUSED TO SPEAK WITH ME AND STATES " I HAVE A YOUNGER THAN ME AND A DAUGHTER THAT WILL GET ME ANYTHING I NEED, YOU CAN GO"
[2018-09-14] MEDS ORDERED: MAGNESIUM SULFATE 2GM/50ML 50 ML IV ONE (12:00)
[2018-09-14] MEDS: ZOLPIDEM TARTRATE 10 MG TAB PO SCH (20:34)
[2018-09-14] MEDS: TRAMADOL HCL 50 MG TAB PO PRN (20:35)
--- NOTE | 2018-09-14 20:35 | NUR ---
PATIENT C/O PAIN TO THE BACK WITH PAIN SCORE #6, MEDICATED WITH TRAMADOL ORDERED. CALL LIGHT WITHIN EASY REACH, SHE'S INSTRUCTED TO CALL FOR ASSISTANCE NEEDED. DR LEROY'S TRAVEL REGISTERED NURSE ONCOLOGY IS ON THE UNIT TO SEE THE PATIENT, PLAN IS FOR ORAL POTASSIUM REPLACEMENT.
[2018-09-14] MEDS ORDERED: POTASSIUM CHLORIDE 20 MEQ TAB CR PO STA (20:37)
[2018-09-14] MEDS ORDERED: CALCIUM GLUCONATE 10% INJ 4.65 MEQ in SODIUM CHLORIDE 0.9% 50ML 50 ML IV ONE ×2 (20:45→21:00)
[2018-09-14] MEDS ORDERED: NON-FORMULARY MEDICATION (Zolpidem Tartrate 10 MG) PO SCH (21:00)
[2018-09-15] VITALS (8 sets, daily range): BP systolic 102–125; BP diastolic 61–71
[2018-09-15] MEDS: METRONIDAZOLE 500 MG TAB PO SCH ×4 (00:50→17:15)
[2018-09-15] MEDS: VANCOMYCIN 250MG/5ML ORAL SOLN PO SCH ×4 (00:50→17:16)
--- NOTE | 2018-09-15 00:55 | NUR ---
PATIENT CONDITION STABLE WITHOUT RESPIRATORY DISTRESS, SHE STATES PAIN SCORE IS #4 TO THE BACK. PATIENT ASSISTED TO REPOSITION ON HER RIGHT SIDE, INSTRUCTED TO CALL FOR ASSISTANCE NEEDED.
--- NOTE | 2018-09-15 04:39 | NUR ---
PATIENT IS SOUNDLY ASLEEP, NO RESPIRATORY DISTRESS OBSERVED. BED ALARM ON, CALL LIGHT WITHIN EASY REACH.
[2018-09-15 05:36] LABS: BASOPHILS # (AUTO) 0.1 (0.0-0.1); BASOPHILS % 1.3 % (0.0-1.0); EOSINOPHILS # (AUTO) 0.2 (0.0-0.4); EOSINOPHILS % 2.9 % (0.0-6.0); HEMATOCRIT 35.8 % (34.2-44.1); HEMOGLOBIN 11.7 g/dL (12.0-16.0); LYMPHOCYTES % 18.9 % (18.0-39.1); MEAN CORPUSCULAR HEMOGLOBIN 30.3 pg (28-32); MEAN CORPUSCULAR HGB CONC 32.7 g/dL (31-35); MEAN CORPUSCULAR VOLUME 92.7 fL (81-99); MONOCYTES # (AUTO) 0.7 (0.2-0.8); MONOCYTES % 12.3 % (4.4-11.3); NEUTROPHILS # (AUTO) 3.5 (2.1-6.9); NEUTROPHILS % 64.2 % (38.7-80.0); PLATELET COUNT 217 x10e3/uL (140-360); RED BLOOD COUNT 3.86 x10e6/uL (3.6-5.1); RED CELL DISTRIBUTION WIDTH 16.7 % (11.7-14.4)
[2018-09-15 06:04] LABS: ANION GAP 8.3 mmol/L (8-16); BLOOD UREA NITROGEN 5 mg/dL (7-26); BUN/CREATININE RATIO 9 (6-25); CALCIUM 8.1 mg/dL (8.4-10.2); CARBON DIOXIDE 24 mmol/L (22-29); CHLORIDE 107 mmol/L (98-107); CREATININE, SERUM 0.56 mg/dL (0.57-1.11); EST GLOMERULAR FILTRATION RATE > 60 ML/MIN (60-); GLUCOSE 110 mg/dL (74-118); MAGNESIUM 1.8 MG/DL (1.3-2.1); POTASSIUM 3.3 mmol/L (3.5-5.1); SODIUM 136 mmol/L (136-145)
[2018-09-15] MEDS: TRAMADOL HCL 50 MG TAB PO PRN ×2 (06:21→23:04)
--- NOTE | 2018-09-15 06:23 | NUR ---
PATIENT INCONTINENT OF URINE, KEPT CLEAN AND DRY, REPOSITION FOR COMFORT. MEDICATED WITH TRAMADOL ORDERED FOR BACK PAIN.
--- NOTE | 2018-09-15 07:00 | NUR ---
rounded with form worker nurse, patient alert and oriented and aware of change. Call pendleton within reach and bed in lowest position.
[2018-09-15] MEDS: MEGESTROL ACETATE 40 MG TAB PO SCH ×2 (08:25→17:15)
[2018-09-15] MEDS: PANTOPRAZOLE SOD 40 MG TABEC PO SCH (08:25)
[2018-09-15] MEDS: FAMOTIDINE 20 MG TAB PO SCH ×2 (08:25→17:15)
[2018-09-15] MEDS: ASCORBIC ACID 500 MG TAB PO SCH ×2 (08:25→17:15)
[2018-09-15] MEDS: CYCLOBENZAPRINE HCL 10 MG TAB PO SCH (08:25)
[2018-09-15] MEDS: LISINOPRIL 20 MG TAB PO SCH (09:45)
--- NOTE | 2018-09-15 10:00 | NUR ---
Call made to Dr Gentile concerning patient having ESBL in the urine. Waiting for call back for orders.
[2018-09-15] MEDS ORDERED: POTASSIUM CHLORIDE 20 MEQ TAB CR PO NR ×2 (15:30→18:00)
--- NOTE | 2018-09-15 16:45 | NUR ---
Visit made by the Spiritual Care Department Pastoral Visitor, Lefty Caputo. PV provided pastoral presence, hospitality, and supportive listening. Pastoral Visitor informed pt/family of the scope of Napping Machine Operator Services and availability. CAMERON PATINO Delinquent Notice Machine Operator Spiritual Care Department O: [phone] Pager: [phone] ([phone] number calling from)
[2018-09-15] MEDS ORDERED: FUROSEMIDE INJ 10 MG/ML 2 ML VIAL IV NR (18:00)
--- NOTE | 2018-09-15 19:08 | NUR ---
Report received and walking rounds complete. Pt resting in bed and in no apparent distress. All safety measures ensured, bed alarm on, and call pendleton near.
--- NOTE | 2018-09-15 19:10 | NUR ---
rounded with maintenance supervisor 2nd shift nurse, patient aware of change. Call pendleton within reach and bed in lowest position.
--- NOTE | 2018-09-15 19:25 | Progress Note ---
DATE: SUBJECTIVE: Ms. Page is doing better. She complains of diarrhea. PHYSICAL EXAMINATION: Unremarkable. LABORATORY DATA: C difficile is negative. ASSESSMENT: Diarrhea, probably secondary to gastroenteritis or short gut syndrome and irritable bowel syndrome. PLAN: Continue supportive care. Wes House MD FES/MODL /[id number]
[2018-09-15] MEDS: ZOLPIDEM TARTRATE 10 MG TAB PO SCH (23:04)
[2018-09-16] VITALS: BP 95/45
[2018-09-16] MEDS: METRONIDAZOLE 500 MG TAB PO SCH ×2 (00:18→06:30)
[2018-09-16] MEDS: VANCOMYCIN 250MG/5ML ORAL SOLN PO SCH ×2 (00:30→06:30)
[2018-09-16 04:00] VITALS: BP 120/66
[2018-09-16 06:27] LABS: ANION GAP 8.3 mmol/L (8-16); BLOOD UREA NITROGEN < 5 mg/dL (7-26); CALCIUM 7.9 mg/dL (8.4-10.2); CARBON DIOXIDE 27 mmol/L (22-29); CHLORIDE 107 mmol/L (98-107); CREATININE, SERUM 0.58 mg/dL (0.57-1.11); EST GLOMERULAR FILTRATION RATE > 60 ML/MIN (60-); GLUCOSE 104 mg/dL (74-118); POTASSIUM 3.3 mmol/L (3.5-5.1); SODIUM 139 mmol/L (136-145)
[2018-09-16 06:32] LABS: BUN/CREATININE RATIO 9 (6-25)
[2018-09-16] MEDS: FAMOTIDINE 20 MG TAB PO SCH (07:45)
[2018-09-16] MEDS: PANTOPRAZOLE SOD 40 MG TABEC PO SCH (07:45)
[2018-09-16 08:04] VITALS: BP 122/65
[2018-09-16] MEDS ORDERED: POTASSIUM CHLORIDE 20 MEQ TAB CR PO STA (09:42)
[2018-09-16] MEDS: CYCLOBENZAPRINE HCL 10 MG TAB PO SCH (09:58)
[2018-09-16] MEDS ORDERED: MEGESTROL ACETA40 MG PO (09:58)
[2018-09-16] MEDS: ASCORBIC ACID 500 MG TAB PO SCH (09:59)
[2018-09-16] MEDS: MEGESTROL ACETATE 40 MG TAB PO SCH (09:59)
[2018-09-16] MEDS: LISINOPRIL 20 MG TAB PO SCH (09:59)
[2018-09-16] MEDS ORDERED: FUROSEMIDE INJ 10 MG/ML 4 ML VIAL IV ONE (10:30)
[2018-09-16] MEDS ORDERED: POTASSIUM CHLORIDE 20 MEQ TAB CR PO ONE (10:30)
[2018-09-16] MEDS ORDERED: VANCOMYCIN HCL500 MG PO (11:23)
[2018-09-16] MEDS ORDERED: FLAGYL250 MG PO (11:23)
[2018-09-16] MEDS ORDERED: HIPREX1 GM PO (11:28)
[2018-09-16 12:04] VITALS: BP 101/52
--- NOTE | 2018-09-16 13:04 | NUR ---
Pt wheeled off unit at this time via wheelchair x1 assist. Discharge paperwork provided to pt. No c/o pain. Pt is A&O x4.
--- NOTE | 2018-09-17 13:59 | Discharge Summary ---
ADMISSION DIAGNOSES: 1. Clostridium difficile colitis. 2. Recurrent urinary tract infection. 3. Inadequate p.o. intake. 4. Severe protein-calorie malnutrition. 5. Hypokalemia. 6. Bilateral lower extremity edema and swelling. 7. Osteoporosis of spine. DISCHARGE DIAGNOSES: 1. Clostridium difficile colitis. 2. Recurrent urinary tract infection. 3. Inadequate p.o. intake. 4. Severe protein-calorie malnutrition. 5. Hypokalemia. 6. Bilateral lower extremity edema and swelling. 7. Osteoporosis of spine. MEDICAL HISTORY: Short gut syndrome x10 years, recurrent UTIs, hypertension, and osteoporosis of spine. SURGICAL HISTORY: Hysterectomy, gastric bypass and removal of most of the small bowel due to infection, and right total knee replacement. FAMILY HISTORY: None. SOCIAL HISTORY: None. HOSPITAL COURSE: A 72-year-old female last seen 08/31/2018 with septic shock due to recurrent UTIs, had PICC line placed for IV TPN due to short gut syndrome as well as vancomycin and Merrem per ID. Per the patient, the was very nervous about the training and they received very limited instructions on how to use the equipment, so she never actually received any TPNs. She no longer wants to receive TPN at home. On admission, chest x-ray showed no acute radiographic abnormality. Urine culture came back positive for ESBL and Klebsiella. There is no need for treatment per Infectious Disease. Blood cultures were negative. Repeat C difficile was negative. The patient will discharge home with vancomycin p.o., Flagyl p.o., and Hiprex per Infectious Disease. The TPN will be stopped due to the patient's wishes. She will follow up with primary care in 1-[address] Gentile as discussed. The patient is feeling much better and her appetite has improved with Megace alone. She is no longer having diarrhea and is ready to discharge home. Vital signs stable, the patient afebrile. The patient understands discharge instructions and agrees to plan. Dictated by Amanda Cash NP MD MARIBELL Quiñones/MODL /[id number]
== END 2018-09-16 13:04 | disposition home or self-care (01) ==
LOC: ER 18:47 → ERHOLD 21:46 → IMCU 09-13 16:27
PROVIDERS: ADMIT Internal Medicine; ATTEND Internal Medicine
DX: A04.71 Enterocolitis due to Clostridium difficile, recurrent (principal); N39.0 Urinary tract infection, site not specified; E43 Unspecified severe protein-calorie malnutrition; Z68.31 Body mass index [BMI] 31.0-31.9, adult; E87.6 Hypokalemia; R60.0 Localized edema; M81.0 Age-related osteoporosis without current pathological fracture; B96.1 Klebsiella pneumoniae [K. pneumoniae] as the cause of diseases classified elsewhere; Z16.12 Extended spectrum beta lactamase (ESBL) resistance; K91.2 Postsurgical malabsorption, not elsewhere classified; Z87.440 Personal history of urinary (tract) infections; E87.8 Other disorders of electrolyte and fluid balance, not elsewhere classified; E83.42 Hypomagnesemia; E83.51 Hypocalcemia
CPT/HCPCS: 36415 ×5; 71045; 80048 ×3; 80053 ×2; 81001; 82550 ×2; 82553 ×2; 83605; 83735 ×3; 84100 ×2; 84484 ×2; 85025 ×4; 87040; 87045; 87086; 87186; 87493; 93005; 93970; 96365; 96367; 99284; G0378 ×5; J0131; J0610; J1940 ×2; J3475; J3480; J7030; J7050; S0164 ×2

== ENCOUNTER 2019-03-19 17:57 | Emergency (ER) | payer MEDICARE ==
[~2019-03-19] VITALS: Ht 165.1 cm; Wt 109.8 kg
[~2019-03-19 17:57] MED LIST changes: +FLAGYL250 MG PO; +HIPREX1 GM PO; +MEGESTROL ACETA40 MG PO; +VANCOMYCIN HCL500 MG PO
--- OUTSIDE RECORDS SUMMARY | 2019-03-19 18:01 | XMS REPORT | Summary of Care ---
Author Author Georgette Staton M.A. Unknown Address Unknown Phone Unavailable Care Team Providers Care Track Maintainer Name Role Phone EVE Stokes, DAVID Unavailable Unavailable CAMILA P.AAngel, VEE Unavailable Unavailable RAMONA Seo, SUYAPAUSTAFDarin Unavailable Unavailable EVE [facility] [place], DAVID Unavailable Unavailable RAMONA MENDEZ, ELZA Unavailable Unavailable GAYE MENDEZ, SCOTT Lucio Unavailable Unavailable KEVAN MENDEZ [place], JOSSELYN WATTS Unavailable Unavailable JEFF Seo, ROBYN Unavailable Unavailable Unavailable Unavailable Functional Status Name [...] Obesity (BMI 30-39.9) (278.00, E66.9) Status: Active Need for influenza vaccination (V04.81, [...] Active Genitourinary symptoms (788.99, R39.9) Status: Active Osteoarthritis of spine (721.90, M47.9) [...] of multiple sites (719.49, M25.50) Status: Active H/O Clostridium difficile infection (V12.09, Z86.19) Status: Active Lumbar radicular pain (724.4, M54.16) Status: Active Screening for breast cancer (V76.10, Z12.39) Status: Active Mass of soft tissue of upper extremity (782.2, R22.30) Status: Active Essential (primary) hypertension (401.9, I10) Status: Active Recurrent UTI (599.0, N39.0) Status: Active Osteoporosis (733.00, M81.0) Status: Active Hypertension, unspecified type (401.9, I10) Status: Active Controlled type 2 diabetes mellitus without complication (250.00, E11.9) Status: Active Bladder spasm (596.89, N32.89) Status: Active Medications Name Dates Details Lisinopril 20 MG Oral Tablet TAKE 1 TABLET DAILY FOR BLOOD PRESSURE. Quantity: 90 YEH D.O., DAVID * Start : 20-Dec-2016 Active 90 Tablet Bottle Zolpidem Tartrate 10 MG Oral Tablet TAKE 1 TABLET AT BEDTIME NEEDED FOR SLEEP. * Quantity: 30 Refills: 5 YEH D.O., KIKI-TEETEE * Start : 20-Dec-2016 Active Dexilant 60 MG Oral Capsule Delayed Release take 1 pill bid * Quantity: 180 Refills: 1 YEH D.O., DAVID * Start : 20-Dec-2016 Active Vitamin D CAPS * Refills: 0 M.A. Active Shingrix 50 MCG Intramuscular Suspension Reconstituted Administer at pharmacy as directed * Quantity: 1 Refills: 0 CAMILA P.VEE Cadena * Start : 04-Apr-2018 Active Tdap (Adacel) Inject at pharmacy as directed * Quantity: 1 Refills: 0 CAMILA P.VEE Cadena * Start : 04-Apr-2018 Active 0.5 ML Syringe Acetaminophen-Codeine #3 300-30 MG Oral Tablet TAKE [...] TITRATION 900MG * Quantity: 135 Refills: 0 SUYAPA GREENE M.D.USTAFA * Start : 24-Jun-2018 Active DULoxetine HCl - 30 MG Oral Capsule Delayed Release Particles TAKE ONE CAPSULE BY MOUTH ONCE DAILY FOR 7 DAYS THEN 2 CAPSULES BY MOUTH ONCE DA SHANTA * Quantity: 53 Refills: 0 SUYAPA GREENE M.D.USTAFA * Start : 24-Jun-2018 Active traMADol HCl - 50 MG Oral Tablet TAKE 1 TABLET EVERY 8 HOURS NEEDED. * Quantity: 90 Refills: 0 YEH D.O.DAVID * Start : 24-Jun-2018 Active Metoclopramide HCl - 5 MG Oral Tablet Disintegrating TAKE 1 TABLET EVERY 6 HOURS PRN nausea * Quantity: 60 Refills: 1 YEH D.O.DAVID * Start : 16-Jul-2018 Active Cyclobenzaprine HCl - 10 MG Oral Tablet TAKE 1 TABLET AT BEDTIME. * Quantity: 30 Refills: 0 YEH D.O., DAVID * Start : 28-Aug-2018 Active Oxybutynin Chloride ER 5 MG Oral Tablet Extended Release 24 Hour TAKE ONE TABLET BY MOUTH EVERY DAY * Quantity: 30 Refills: 5 YEH D.O., DAVID * Start : 17-Oct-2018 Active Gelnique Pump 10 % Transdermal Gel 1 PUMP TO SKIN PER DAY, CHANGE SITES BETWEEN ABDOMEN, LEGS, ARMS * Quantity: 1 Refills: 5 YEH D.O.DAVID * Start : 05-Feb-2019 Active 30 GM Pump Btl Allergies and Adverse Reactions Name Dates Details [...] (488.02, J09.X2) Status: Resolved History of insomnia (V13.89, Z87.898) Status: Resolved History of Sea sickness (994.6, T75.3XXA) Status: Resolved History of sepsis (V12.09, Z86.19) Status: Resolved History of Shoulder strain, right, sequela (905.7, S46.911S) Status: Resolved History of Skin neoplasm (239.2, D49.2) Status: Resolved History of Strain of left shoulder, sequela (905.7, S46.912S) Status: Resolved History of tachycardia (V13.89, Z87.898) Status: Resolved History of UTI symptoms (788.99, R39.9) Status: Resolved History of vaginal discharge (V13.29, Z87.42) Status: Resolved Procedures Procedure Dates Details US Extremity upper (non-vascular) 23662 Date: 14-Jan-2019 US Extremity upper (non-vascular) 29427 Date: 14-Jan-2019 [place] Breast mammogram screen bilateral 94413 Date: 14-Jan-2019 History of Appendectomy Completed History of Tonsillectomy Completed History of Hysterectomy Completed History of Gallbladder surgery Completed History of Gastric bypass surgery Completed Immunization Name Dates Details Fluzone Quadrivalent 0.5 ML Intramuscular Suspension Prefilled Syringe Lot #: [id number] on: 26-Jul-2017 Prevnar 13 Intramuscular Suspension Lot #: [id number] on: 26-Jul-2017 Fluzone High-Dose 0.5 ML Intramuscular Suspension Prefilled Syringe Lot #: [id number] on: 04-Apr-2018 Family History Name Dates Details [...] smoker Vital Signs Date Test Result Details [id number] BP Systolic 122 mm[Hg] Status: Comments: Location: LUE; Position: Sitting BP Diastolic 83 mm[Hg] Status: Comments: Location: LUE; Position: Sitting Weight 180 lb Status: Body Mass Index Calculated 30.9 kg/m2 Status: Body Surface Area Calculated 1.87 m2 Status: Height 64 in Status: Temperature 98 f Status: Comments: Method: Temporal Respiration Rate 16 /min Status: Heart Rate 109 /min Status: Results Date Description Value Details :04 [] LIPID PANEL WITH REFLEX TO DIRECT LDL CHOLESTEROL, TOTAL 149 mg/dl (Normal) Range: <200 HDL CHOLESTEROL 38 mg/dl (Below low threshold) Range: >50 TRIGLYCERIDES 162 mg/dl (Above high threshold) Range: <150 LDL-CHOLESTEROL 84 {MG/DL__CAL} (Normal) Comments: Reference range: <100 Desirable range <100 mg/dL for primary prevention; <70 mg/dL for patients with CHD or diabetic patients with > or=2 CHD risk factors. LDL-C is now calculated using giuliana Langston calculation, which is a validated novel method providing better accuracy than the Friedewald equation in the estimation of LDL-C. Mark DELVALLE et al. CHRISSY. 2013;310(19): 2403-4649 (http:/ /education.TRAK[employer]K.[employer].com/faq/VHK750) CHOL/HDLC RATIO 3.9 {CALC} (Normal) Range: <5.0 NON HDL CHOLESTEROL 111 {MG/DL__CAL} (Normal) Range: <130 Comments: For patients with diabetes plus 1 major ASCVD risk factor, treating to a non-HDL-C goal of <100 mg/dL (LDL-C of <70 mg/dL) is considered a therapeutic option. [id number] [[facility]] CMP W/EGFR GLUCOSE 155 mg/dl (Above high threshold) Range: 65-99 Comments: Fasting reference interval For someone without known diabetes, a glucosevalue >125 mg/dL indicates that they may havediabetes and this should be confirmed with afollow-up test. UREA NITROGEN (BUN) 18 mg/dl (Normal) Range: 7-25 CREATININE 0.82 mg/dl (Normal) Range: 0.60-0.93 Comments: For patients >49 years of age, the reference limitfor Creatinine is approximately 13% higher for peopleidentified as -[place]. eGFR NON- 72 {ML/MIN/1.7} (Normal) Range: > OR=60 eGFR 83 {ML/MIN/1.7} (Normal) Range: > OR=60 BUN/CREATININE RATIO NOT APPLICABLE {CALC} Range: 6-22 SODIUM 139 mmol/L (Normal) Range: 135-146 POTASSIUM 4.6 mmol/L (Normal) Range: 3.5-5.3 CHLORIDE 105 mmol/L (Normal) Range: 98-110 CARBON DIOXIDE 25 mmol/L (Normal) Range: 20-32 CALCIUM 9.3 mg/dl (Normal) Range: 8.6-10.4 PROTEIN, TOTAL 6.6 g/dl (Normal) Range: 6.1-8.1 ALBUMIN 4.3 g/dl (Normal) Range: 3.6-5.1 GLOBULIN 2.3 {G/DL__CALC} (Normal) Range: 1.9-3.7 ALBUMIN/GLOBULIN RATIO 1.9 {CALC} (Normal) Range: 1.0-2.5 BILIRUBIN, TOTAL 0.8 mg/dl (Normal) Range: 0.2-1.2 ALKALINE PHSPHATASE 88 u/l (Normal) Range: 33-130 AST 34 u/l (Normal) Range: 10-35 ALT 43 u/l (Above high threshold) Range: 6-29 :04 [QL] URINALYSIS, COMPLETE W/REFLEX TO CULTURE COLOR DARK YELLOW (Normal) Range: YELLOW APPEARANCE CLEAR (Normal) Range: CLEAR SPECIFIC GRAVITY 1.030 (Normal) Range: 1.001-1.035 PH < OR=5.0 (Normal) Range: 5.0-8.0 GLUCOSE NEGATIVE (Normal) Range: NEGATIVE BILIRUBIN NEGATIVE (Normal) Range: NEGATIVE KETONES NEGATIVE (Normal) Range: NEGATIVE OCCULT BLOOD NEGATIVE (Normal) Range: NEGATIVE PROTEIN NEGATIVE (Normal) Range: NEGATIVE NITRITE NEGATIVE (Normal) Range: NEGATIVE LEUKOCYTE ESTERASE 1+ (Abnormal) Range: NEGATIVE WBC 20-40 {/HPF} (Abnormal) Range: < OR=5 RBC 3-10 {/HPF} (Abnormal) Range: < OR=2 SQUAMOUS EPITHELIAL CELLS > OR=60 {/HPF} (Abnormal) Range: < OR=5 BACTERIA NONE SEEN {/HPF} (Normal) Range: NONE SEEN CALCIUM OXALATE CRYSTALS MODERATE {/HPF} (Abnormal) Range: NONE OR FEW HYALINE CAST NONE SEEN {/LPF} (Normal) Range: NONE SEEN :04 [Q] REFLEXIVE URINE CULTURE REFLEXIVE URINE CULTURE CULTURE INDICATED - RESULTS TO FOLLOW :04 [QL] CBC (INCLUDES DIFF/PLT) WHITE BLOOD CELL COUNT 6.2 {Thousand/u} (Normal) Range: 3.8-10.8 RED BLOOD CELL COUNT 4.80 {Million/uL} (Normal) Range: 3.80-5.10 HEMAGLOBIN 14.9 g/dl (Normal) Range: 11.7-15.5 HEMATOCRIT 43.4 % (Normal) Range: 35.0-45.0 MCV 90.4 fL (Normal) Range: 80.0-100.0 MCH 31.0 pg (Normal) Range: 27.0-33.0 MCHC 34.3 g/dl (Normal) Range: 32.0-36.0 RDW 12.3 % (Normal) Range: 11.0-15.0 PLATELET COUNT 220 {Thousand/u} (Normal) Range: 140-400 MPV 11.5 fL (Normal) Range: 7.5-12.5 ABSOLUTE NEUTROPHILS 4055 {cells/uL} (Normal) Range: 2369-1060 ABSOLUTE LYMPHOCYTES 1277 {cells/uL} (Normal) Range: 850-3900 ABSOLUTE MONOCYTES 601 {cells/uL} (Normal) Range: 200-950 ABSOLUTE EOSINOPHILS 217 {cells/uL} (Normal) Range: 15-500 ABSOLUTE BASOPHILS 50 {cells/uL} (Normal) Range: 0-200 NEUTROPHILS 65.4 % (Normal) LYMPHOCYTES 20.6 % (Normal) MONOCYTES 9.7 % (Normal) EOSINOPHILS 3.5 % (Normal) BASOPHILS 0.8 % (Normal) :04 [[facility]] TSH, 3RD GENERATION W/REFLEX TO FT4 TSH, 3RD GENERATION W/REFLEX TO FT4 3.21 {MIU/L} (Normal) Range: 0.40-4.50 [id number] [[facility]] CULTURE, URINE, ROUTINE CULTURE Comments: CULTURE, URINE, ROUTINE MICRO NUMBER: [id number] TEST STATUS: FINAL SPECIMEN SOURCE: URINE SPECIMEN QUALITY: ADEQUATE RESULT: Multiple organisms present, each less than 10,000 CFU/mL. These organisms, commonly found on external and internal genitalia, are considered to be colonizers. No further testing performed. Plan of Care Name Dates Details Planned Observations Planned Goals not documented Interventions Provided Discussion/Summary* Urine sample shows no acute abnormalities. Urine culture shows some skin contaminants. Labs also otherwise WNL as well. No need for change in therapy. Instructions [...] Diagnosis: Problem not documented On: 28-Aug-2018 14:00 Appointment; DAVID PRADO D.O. Encounter Diagnosis: Problem not documented On: 14-Oct-2018 12:00 Appointment; VEE JENSEN P.A. Encounter Diagnosis: Problem not documented On: 01-Nov-2018 11:30 Appointment; ELZA GREENE M.D. Encounter Diagnosis: Problem not documented On: 26-Nov-2018 15:30 Appointment; DAVID PRADO D.O. Encounter Diagnosis: Problem not documented On: 06-Dec-2018 13:00 Appointment; DAVID PRADO D.O. Encounter Diagnosis: Problem not documented On: 14-Jan-2019 15:00 Appointment; DAVID PRADO D.O. Encounter Diagnosis: Problem not documented On: 05-Feb-2019 14:30 Appointment; DAVID PRADO D.O. Encounter Diagnosis: Problem not documented On: 07-Mar-2019 12:30
--- OUTSIDE RECORDS SUMMARY | 2019-03-19 18:01 | XMS REPORT | Continuity of Care Document ---
Author Author [email or web address] Address Unknown Phone Unavailable Care Team Providers Care Executive Producer [employer] Name Role Phone [employer] Unavailable Unavailable Problems Problem Status Onset Date Classification Date Reported Comments Source Colitis due to Clostridium difficile Active Problem 09/16/2018 [facility] Fever Active Problem 09/16/2018 [facility] Leukocytosis Active Problem 09/16/2018 [facility] Sepsis Active Problem 09/16/2018 [facility] Urinary tract infection Active Problem 09/16/2018 [facility] Medications Medication Details Route Status Patient Instructions Ordering Provider Order Date Source Megestrol Acetate 40 Mg Tablet Twice A Day Active [place] 09/16/2018 [facility] Vancomycin Hcl (Vancocin Hcl) 250 Mg Capsule Every 6 Hours Active [place] 09/06/2018 [facility] Cephalexin 500 Mg Capsule, 500 Mg Oral Three Times A Day Active 09/06/2018 [facility] Tpn , 1 Dose Intraven Bedtime Active [place] 09/06/2018 [facility] Amoxicillin 250 Mg Capsule Three Times A Day Active [place] 08/18/2018 [facility] Carbamazepine (Tegretol) 100 Mg Tab.chew Three Times A Day Active [facility] Carbamazepine (Tegretol) 200 Mg Tablet Three Times A Day Active [facility] Clonazepam 0.5 Mg Tablet as needed Active [facility] Cyclobenzaprine Hcl (Flexeril) 10 Mg Tablet Daily Active [facility] Dexlansoprazole (Dexilant) 60 Mg Cap. Daily Active [facility] Esomeprazole Magnesium (Nexium) 40 Mg Capsule.dr Pace Active [facility] Lisinopril 10 Mg Tablet Daily Active [facility] Sucralfate 1 Gm Tablet Four Times Daily Active [facility] Cyclobenzaprine Hcl 10 Mg Tablet Daily Active [facility] Lisinopril (Prinavil / Zestril) 20 Mg Tablet Daily Active [facility] Methenamine Hippurate (Hiprex) 1 Gm Tablet Active [facility] Metronidazole (Flagyl) 250 Mg Tablet Every 8 Hours Active [facility] Tramadol Hcl (Ultram 50MG*) 50 Mg Tab Twice A Day as needed for Pain Active [facility] Vancomycin Hcl 500 Mg Vial Three Times A Day Active [facility] Zolpidem Tartrate 10 Mg Tablet Bedtime Active [facility] Allergies, Adverse Reactions, Alerts Substance Category Reaction Severity Reaction type Status Date Reported Comments Source Sulfa (Sulfonamide Antibiotics) "COMA" Severe Allergy to Substance Active 09/12/2018 [facility] Iodinated Contrast- Oral and IV Dye RASH/HIVES Intermediate Allergy to Substance Active 09/12/2018 [facility] Ceftriaxone RASH Mild Allergy to Substance Active 09/12/2018 [facility] Immunizations No Data Provided for This Section Results Order Name Results Value Reference Range Date Interpretation Comments Source Serum or plasma sodium measurement (moles/volume) 139 136 - 145 09/16/2018 [facility] Serum or plasma potassium measurement (moles/volume) 3.3 3.5 - 5.1 09/16/2018 [facility] Serum or plasma chloride measurement (moles/volume) 107 98 - 107 09/16/2018 [facility] Serum or plasma carbon dioxide, total measurement (moles/volume) 27 22 - 29 09/16/2018 [facility] Serum or plasma anion gap 8.3 8 - 16 09/16/2018 [facility] Serum or plasma urea nitrogen measurement (mass/volume) < 5 7 - 26 09/16/2018 [facility] Serum or plasma creatinine measurement (mass/volume) 0.58 0.57 - 1.11 09/16/2018 [facility] Serum or plasma urea nitrogen/creatinine mass ratio 9 6 - 25 09/16/2018 [facility] Estimated glomerular filtration rate (GFR) determination > 60 60 09/16/2018 [facility] Glucose measurement 104 74 - 118 09/16/2018 [facility] Serum or plasma calcium measurement (mass/volume) 7.9 8.4 - 10.2 09/16/2018 [facility] Blood leukocytes automated count (number/volume) 5.51 4.8 - 10.8 09/15/2018 [facility] Blood erythrocytes automated count (number/volume) 3.86 3.6 - 5.1 09/15/2018 [facility] Blood hemoglobin measurement (moles/volume) 11.7 12.0 - 16.0 09/15/2018 [facility] Automated blood hematocrit (volume fraction) 35.8 34.2 - 44.1 09/15/2018 [facility] Automated erythrocyte mean corpuscular volume 92.7 81 - 99 09/15/2018 [facility] Automated erythrocyte mean corpuscular hemoglobin (mass per erythrocyte) 30.3 28 - 32 09/15/2018 [facility] Automated erythrocyte mean corpuscular hemoglobin concentration measurement (mass/volume) 32.7 31 - 35 09/15/2018 [facility] RDW BldCo-Rto 16.7 11.7 - 14.4 09/15/2018 [facility] Automated blood platelet count (count/volume) 217 140 - 360 09/15/2018 [facility] Automated blood segmented neutrophil count as percentage of total leukocytes 64.2 38.7 - 80.0 09/15/2018 [facility] Automated blood lymphocyte count as percentage ot total leukocytes 18.9 18.0 - 39.1 09/15/2018 [facility] Automated blood monocyte count as percentage of total leukocytes 12.3 4.4 - 11.3 09/15/2018 [facility] Automated blood eosinophil count as percentage of total leukocytes 2.9 0.0 - 6.0 09/15/2018 [facility] Automated blood basophil count as percentage of total leukocytes 1.3 0.0 - 1.0 09/15/2018 [facility] IM GRANULOCYTES % 0.4 0.0 - 1.0 09/15/2018 [facility] Automated blood neutrophil count 3.5 2.1 - 6.9 09/15/2018 [facility] Blood lymphocytes count (number/volume) 1.0 1.0 - 3.2 09/15/2018 [facility] Blood monocytes automated count (number/volume) 0.7 0.2 - 0.8 09/15/2018 [facility] Automated blood eosinophil count 0.2 0.0 - 0.4 09/15/2018 [facility] Automated blood basophil count (count/volume) 0.1 0.0 - 0.1 09/15/2018 [facility] Absolute Immature Granulocyte (auto 0.02 0 - 0.1 09/15/2018 [facility] Serum or plasma magnesium measurement (mass/volume) 1.8 1.3 - 2.1 09/15/2018 [facility] Clostridium difficile A and B toxin assay NEGATIVE NEGATIVE 09/14/2018 [facility] Phosphorus measurement 2.6 2.3 - 4.7 09/14/2018 [facility] Urine color determination YELLOW YELLOW 09/13/2018 [facility] Urine clarity SL CLOUDY CLEAR 09/13/2018 [facility] Specific gravity of Urine by Test strip 1.030 1.010 - 1.025 09/13/2018 [facility] Urine pH measurement by automated test strip 5 5 - 7 09/13/2018 [facility] Urine leukocyte esterase detection by dipstick TRACE NEGATIVE 09/13/2018 [facility] Urine nitrite detection NEGATIVE NEGATIVE 09/13/2018 [facility] Urine protein measurement by test strip (mass/volume) TRACE NEGATIVE 09/13/2018 [facility] Urine glucose detection NEGATIVE NEGATIVE 09/13/2018 [facility] Urine ketones detection by automated test strip NEGATIVE NEGATIVE 09/13/2018 [facility] Urine urobilinogen measurement by test strip (mass/volume) 0.2 0.2 - 1 09/13/2018 [facility] Urine total bilirubin measurement (mass/volume) 1+ NEGATIVE 09/13/2018 [facility] Urine erythrocytes detection TRACE NEGATIVE 09/13/2018 [facility] Automated urine sediment leukocyte count by microscopy (number/high power field) 11-20 0 - 5 09/13/2018 [facility] Erythrocytes detection in urine sediment by light microscopy 6-10 0 - 5 09/13/2018 [facility] Bacteria detection in urine sediment by light microscopy MANY NONE 09/13/2018 [facility] Epithelial cells detection in urine sediment by light microscopy MODERATE NONE 09/13/2018 [facility] Transitional cells detection in urine sediment by light microscopy FEW NONE 09/13/2018 [facility] Serum or plasma creatine kinase measurement (enzymatic activity/volume) 21 29 - 168 09/13/2018 [facility] Serum or plasma creatine kinase MB measurement (mass/volume) 0.70 0 - 5.0 09/13/2018 [facility] Troponin I measurement by highly sensitive enzyme immunoassay 0.015 0 - 0.300 09/13/2018 [facility] Serum or plasma total bilirubin measurement (mass/volume) 0.5 0.2 - 1.2 09/13/2018 [facility] Aspartate Amino Transf (AST/SGOT) 24 5 - 34 09/13/2018 [facility] Serum or plasma alanine aminotransferase measurement (enzymatic activity/volume) 20 0 - 55 09/13/2018 [facility] Serum or plasma protein measurement (mass/volume) 4.3 6.5 - 8.1 09/13/2018 [facility] Serum or plasma albumin measurement (mass/volume) 2.2 3.5 - 5.0 09/13/2018 [facility] Plasma globulin measurement (mass/volume) 2.1 2.3 - 3.5 09/13/2018 [facility] Serum or plasma albumin/globulin mass ratio 1.0 0.8 - 2.0 09/13/2018 [facility] Serum or plasma alkaline phosphatase measurement (enzymatic activity/volume) 57 40 - 150 09/13/2018 [facility] Lactic Acid Level 18.8 4.5 - 19.8 09/12/2018 [facility] Blood culture NO GROWTH AFTER 72 HOURS 09/12/2018 [facility] Differential Total Cells Counted 100 09/06/2018 [facility] Manual blood neutrophils/100 leukocytes 71 40 - 74 09/06/2018 [facility] Manual blood band neutrophils form/100 leukocytes 3 09/06/2018 [facility] Manual blood lymphocytes/100 leukocytes 14 19 - 48 09/06/2018 [facility] Manual blood monocytes/100 leukocytes 4 3.4 - 9.0 09/06/2018 [facility] Manual blood eosinophil count as percentage of total leukocytes 4 0 - 7 09/06/2018 [facility] Manual basophil percentage 1 0 - 1.5 09/06/2018 [facility] Manual blood metamyelocytes/100 leukocytes 2 0 - 0 09/06/2018 [facility] Blood lymphocytes variant count (number/volume) 1 09/06/2018 [facility] Blood platelets count by estimate (number/volume) ADEQUATE 09/06/2018 [facility] Platelet morphology NORMAL 09/06/2018 [facility] Blood anisocytosis detection by light microscopy SLIGHT 09/06/2018 [facility] RBC morphology NORMAL 09/06/2018 [facility] Manual blood myelocytes/100 leukocytes 1 0 - 0 09/04/2018 [facility] Blood hypochromia detection by light microscopy SLIGHT 09/04/2018 [facility] Blood poikilocytosis detection by light microscopy SLIGHT 09/04/2018 [facility] BNP Bld-mCnc 35.1 0 - 100 09/04/2018 [facility] Capillary blood glucose measurement by glucometer (mass/volume) 120 70 - 120 09/03/2018 [facility] Serum or plasma pyridoxine measurement (mass/volume) 2.9 2.0 - 32.8 09/03/2018 [facility] Serum or plasma trough vancomycin level at trough (mass/volume) 7.1 5.0 - 10.0 09/02/2018 [facility] Stool lactoferrin detection POSITIVE NEGATIVE 09/02/2018 [facility] Stool calprotectin measurement (mass/mass) 585 0 - 120 09/02/2018 [facility] Prothrombin time (PT) in platelet poor plasma by coagulation assay 16.9 11.9 - 14.5 09/02/2018 [facility] INR in Platelet poor plasma by Coagulation assay 1.26 09/02/2018 [facility] Activated partial thromboplastin time (aPTT) in platelet poor plasma bycoagulation assay 34.3 23.8 - 35.5 09/02/2018 [facility] Serum or plasma iron measurement (mass/volume) 14 50 - 170 09/02/2018 [facility] Serum or plasma iron binding capacity measurement (mass/volume) 113 261 - 478 09/02/2018 [facility] Serum or plasma iron saturation measurement (mass fraction) 12 15 - 50 09/02/2018 [facility] Serum or plasma transferrin measurement (mass/volume) 81 180 - 382 09/02/2018 [facility] Blood cobalamin (vitamin B12) measurement (mass/volume) 692 213 - 816 09/02/2018 [facility] Serum or plasma folate measurement (mass/volume) 7.0 7.0 - 15.4 09/02/2018 [facility] Serum or plasma thiamine measurement (moles/volume) 188.5 66.5 - 200.0 09/02/2018 [facility] Serum or plasma retinol measurement (mass/volume) 3.3 09/02/2018 [facility] Serum or plasma conjugated bilirubin measurement (mass/volume) 0.4 0.0 - 0.5 09/01/2018 [facility] Serum or plasma triglyceride measurement (mass/volume) 122 0 - 149 09/01/2018 [facility] Serum or plasma prealbumin measurement (mass/volume) <3 10 - 36 09/01/2018 [facility] Hemoglobin A1c Percent 5.5 4.0 - 7.0 09/01/2018 [facility] Serum or plasma thyroxine (T4) free measurement (mass/volume) 1.09 0.9 - 1.8 09/01/2018 [facility] Serum or plasma thyrotropin measurement by detection limit <=0.005 miu/l (units/volume) 0.925 0.350 - 4.940 09/01/2018 [facility] Mucus detection in urine sediment by light microscopy MANY RARE 08/31/2018 [facility] Influenza virus A and B antigen identification by immunofluorescence NEGATIVE NEGATIVE 08/31/2018 [facility] Blood leukocytes automated count (number/volume) 7.79 4.8 - 10.8 08/18/2018 [facility] Blood erythrocytes automated count (number/volume) 4.70 3.6 - 5.1 08/18/2018 [facility] Blood hemoglobin measurement (moles/volume) 14.0 12.0 - 16.0 08/18/2018 [facility] Automated blood hematocrit (volume fraction) 41.6 34.2 - 44.1 08/18/2018 [facility] Automated erythrocyte mean corpuscular volume 88.5 81 - 99 08/18/2018 [facility] Automated erythrocyte mean corpuscular hemoglobin (mass per erythrocyte) 29.8 28 - 32 08/18/2018 [facility] Automated erythrocyte mean corpuscular hemoglobin concentration measurement (mass/volume) 33.7 31 - 35 08/18/2018 [facility] RDW BldCo-Rto 14.2 11.7 - 14.4 08/18/2018 [facility] Automated blood platelet count (count/volume) 253 140 - 360 08/18/2018 [facility] Automated blood segmented neutrophil count as percentage of total leukocytes 75.8 38.7 - 80.0 08/18/2018 [facility] Automated blood lymphocyte count as percentage ot total leukocytes 12.3 18.0 - 39.1 08/18/2018 [facility] Automated blood monocyte count as percentage of total leukocytes 9.2 4.4 - 11.3 08/18/2018 [facility] Automated blood eosinophil count as percentage of total leukocytes 1.8 0.0 - 6.0 08/18/2018 [facility] Automated blood basophil count as percentage of total leukocytes 0.6 0.0 - 1.0 08/18/2018 [facility] IM GRANULOCYTES % 0.3 0.0 - 1.0 08/18/2018 [facility] Automated blood neutrophil count 5.9 2.1 - 6.9 08/18/2018 [facility] Blood lymphocytes count (number/volume) 1.0 1.0 - 3.2 08/18/2018 [facility] Blood monocytes automated count (number/volume) 0.7 0.2 - 0.8 08/18/2018 [facility] Automated blood eosinophil count 0.1 0.0 - 0.4 08/18/2018 [facility] Automated blood basophil count (count/volume) 0.1 0.0 - 0.1 08/18/2018 [facility] Absolute Immature Granulocyte (auto 0.02 0 - 0.1 08/18/2018 [facility] Prothrombin time (PT) in platelet poor plasma by coagulation assay 14.4 11.9 - 14.5 08/18/2018 [facility] INR in Platelet poor plasma by Coagulation assay 1.03 08/18/2018 [facility] Activated partial thromboplastin time (aPTT) in platelet poor plasma bycoagulation assay 31.6 23.8 - 35.5 08/18/2018 [facility] Fibrin D-dimer DDU measurement in platelet poor plasma (mass/volume) 0.34 0.00 - 0.45 08/18/2018 [facility] Urine color determination ORANGE YELLOW 08/18/2018 [facility] Urine clarity SL CLOUDY CLEAR 08/18/2018 [facility] Specific gravity of Urine by Test strip 1.010 1.010 - 1.025 08/18/2018 [facility] Urine pH measurement by automated test strip 6 5 - 7 08/18/2018 [facility] Urine leukocyte esterase detection by dipstick 2+ NEGATIVE 08/18/2018 [facility] Urine nitrite detection POSITIVE NEGATIVE 08/18/2018 [facility] Urine protein measurement by test strip (mass/volume) 2+ NEGATIVE 08/18/2018 [facility] Urine glucose detection 1+ NEGATIVE 08/18/2018 [facility] Urine ketones detection by automated test strip NEGATIVE NEGATIVE 08/18/2018 [facility] Urine urobilinogen measurement by test strip (mass/volume) 1 0.2 - 1 08/18/2018 [facility] Urine total bilirubin measurement (mass/volume) NEGATIVE NEGATIVE 08/18/2018 [facility] Urine erythrocytes detection 3+ NEGATIVE 08/18/2018 [facility] Automated urine sediment leukocyte count by microscopy (number/high power field) >50 0 - 5 08/18/2018 [facility] Erythrocytes detection in urine sediment by light microscopy >50 0 - 5 08/18/2018 [facility] Bacteria detection in urine sediment by light microscopy FEW NONE 08/18/2018 [facility] Epithelial cells detection in urine sediment by light microscopy MANY NONE 08/18/2018 [facility] Transitional cells detection in urine sediment by light microscopy MANY NONE 08/18/2018 [facility] Serum or plasma sodium measurement (moles/volume) 134 136 - 145 08/18/2018 [facility] Serum or plasma potassium measurement (moles/volume) 3.6 3.5 - 5.1 08/18/2018 [facility] Serum or plasma chloride measurement (moles/volume) 105 98 - 107 08/18/2018 [facility] Serum or plasma carbon dioxide, total measurement (moles/volume) 17 22 - 29 08/18/2018 [facility] Serum or plasma anion gap 15.6 8 - 16 08/18/2018 [facility] Serum or plasma urea nitrogen measurement (mass/volume) 10 7 - 26 08/18/2018 [facility] Serum or plasma creatinine measurement (mass/volume) 0.87 0.57 - 1.11 08/18/2018 [facility] Serum or plasma urea nitrogen/creatinine mass ratio 11 6 - 25 08/18/2018 [facility] Estimated glomerular filtration rate (GFR) determination > 60 60 08/18/2018 [facility] Glucose measurement 198 74 - 118 08/18/2018 [facility] Serum or plasma calcium measurement (mass/volume) 8.9 8.4 - 10.2 08/18/2018 [facility] Serum or plasma magnesium measurement (mass/volume) 1.6 1.3 - 2.1 08/18/2018 [facility] Serum or plasma total bilirubin measurement (mass/volume) 0.9 0.2 - 1.2 08/18/2018 [facility] Aspartate Amino Transf (AST/SGOT) 41 5 - 34 08/18/2018 [facility] Serum or plasma alanine aminotransferase measurement (enzymatic activity/volume) 47 0 - 55 08/18/2018 [facility] Serum or plasma protein measurement (mass/volume) 6.6 6.5 - 8.1 08/18/2018 [facility] Serum or plasma albumin measurement (mass/volume) 3.8 3.5 - 5.0 08/18/2018 [facility] Plasma globulin measurement (mass/volume) 2.8 2.3 - 3.5 08/18/2018 [facility] Serum or plasma albumin/globulin mass ratio 1.4 0.8 - 2.0 08/18/2018 [facility] Serum or plasma alkaline phosphatase measurement (enzymatic activity/volume) 103 40 - 150 08/18/2018 [facility] BNP Bld-mCnc 53.4 0 - 100 08/18/2018 [facility] Serum or plasma creatine kinase measurement (enzymatic activity/volume) 32 29 - 168 08/18/2018 [facility] Serum or plasma creatine kinase MB measurement (mass/volume) 0.90 0 - 5.0 08/18/2018 [facility] Troponin I measurement by highly sensitive enzyme immunoassay 0.006 0 - 0.300 08/18/2018 [facility] Serum or plasma thyrotropin measurement by detection limit <=0.005 miu/l (units/volume) 1.703 0.350 - 4.940 08/18/2018 [facility] Fibrin D-dimer DDU measurement in platelet poor plasma (mass/volume) 0.34 0.00 - 0.45 08/18/2018 [facility] Urine color determination KEELEY YELLOW 07/03/2018 [facility] Urine clarity HAZY CLEAR 07/03/2018 [facility] Specific gravity of Urine by Test strip 1.030 1.010 - 1.025 07/03/2018 [facility] Urine pH measurement by automated test strip 5 5 - 7 07/03/2018 [facility] Urine leukocyte esterase detection by dipstick TRACE NEGATIVE 07/03/2018 [facility] Urine nitrite detection POSITIVE NEGATIVE 07/03/2018 [facility] Urine protein measurement by test strip (mass/volume) 1+ NEGATIVE 07/03/2018 [facility] Urine glucose detection NEGATIVE NEGATIVE 07/03/2018 [facility] Urine ketones detection by automated test strip 3+ NEGATIVE 07/03/2018 [facility] Urine urobilinogen measurement by test strip (mass/volume) 1 0.2 - 1 07/03/2018 [facility] Urine total bilirubin measurement (mass/volume) 1+ NEGATIVE 07/03/2018 [facility] Urine erythrocytes detection NEGATIVE NEGATIVE 07/03/2018 [facility] Automated urine sediment leukocyte count by microscopy (number/high power field) 0-5 0 - 5 07/03/2018 [facility] Erythrocytes detection in urine sediment by light microscopy NONE 0 - 5 07/03/2018 [facility] Bacteria detection in urine sediment by light microscopy NONE NONE 07/03/2018 [facility] Epithelial cells detection in urine sediment by light microscopy RARE NONE 07/03/2018 [facility] Lactic Acid Level 11.9 4.5 - 19.8 07/03/2018 [facility] Blood erythrocytes automated count (number/volume) 4.94 3.6 - 5.1 07/03/2018 [facility] Blood hemoglobin measurement (moles/volume) 15.2 12.0 - 16.0 07/03/2018 [facility] Automated blood hematocrit (volume fraction) 44.5 34.2 - 44.1 07/03/2018 [facility] Automated erythrocyte mean corpuscular volume 90.1 81 - 99 07/03/2018 [facility] Automated erythrocyte mean corpuscular hemoglobin (mass per erythrocyte) 30.8 28 - 32 07/03/2018 [facility] Automated erythrocyte mean corpuscular hemoglobin concentration measurement (mass/volume) 34.2 31 - 35 07/03/2018 [facility] RDW BldCo-Rto 12.6 11.7 - 14.4 07/03/2018 [facility] Automated blood platelet count (count/volume) 222 140 - 360 07/03/2018 [facility] Automated blood segmented neutrophil count as percentage of total leukocytes 86.3 38.7 - 80.0 07/03/2018 [facility] Automated blood lymphocyte count as percentage ot total leukocytes 5.1 18.0 - 39.1 07/03/2018 [facility] Automated blood monocyte count as percentage of total leukocytes 7.8 4.4 - 11.3 07/03/2018 [facility] Automated blood eosinophil count as percentage of total leukocytes 0.2 0.0 - 6.0 07/03/2018 [facility] Automated blood basophil count as percentage of total leukocytes 0.2 0.0 - 1.0 07/03/2018 [facility] IM GRANULOCYTES % 0.4 0.0 - 1.0 07/03/2018 [facility] Automated blood neutrophil count 10.9 2.1 - 6.9 07/03/2018 [facility] Blood lymphocytes count (number/volume) 0.6 1.0 - 3.2 07/03/2018 [facility] Blood monocytes automated count (number/volume) 1.0 0.2 - 0.8 07/03/2018 [facility] Automated blood eosinophil count 0.0 0.0 - 0.4 07/03/2018 [facility] Automated blood basophil count (count/volume) 0.0 0.0 - 0.1 07/03/2018 [facility] Absolute Immature Granulocyte (auto 0.05 0 - 0.1 07/03/2018 [facility] Prothrombin time (PT) in platelet poor plasma by coagulation assay 15.3 11.9 - 14.5 07/03/2018 [facility] INR in Platelet poor plasma by Coagulation assay 1.11 07/03/2018 [facility] Activated partial thromboplastin time (aPTT) in platelet poor plasma bycoagulation assay 31.9 23.8 - 35.5 07/03/2018 [facility] Serum or plasma sodium measurement (moles/volume) 133 136 - 145 07/03/2018 [facility] Serum or plasma potassium measurement (moles/volume) 4.0 3.5 - 5.1 07/03/2018 [facility] Serum or plasma chloride measurement (moles/volume) 97 98 - 107 07/03/2018 [facility] Serum or plasma carbon dioxide, total measurement (moles/volume) 23 22 - 29 07/03/2018 [facility] Serum or plasma anion gap 17.0 8 - 16 07/03/2018 [facility] Serum or plasma urea nitrogen measurement (mass/volume) 10 7 - 26 07/03/2018 [facility] Serum or plasma creatinine measurement (mass/volume) 0.78 0.57 - 1.11 07/03/2018 [facility] Serum or plasma urea nitrogen/creatinine mass ratio 13 6 - 25 07/03/2018 [facility] Estimated glomerular filtration rate (GFR) determination > 60 60 07/03/2018 [facility] Glucose measurement 141 74 - 118 07/03/2018 [facility] Serum or plasma calcium measurement (mass/volume) 9.6 8.4 - 10.2 07/03/2018 [facility] Lactic Acid Level 11.9 4.5 - 19.8 07/03/2018 [facility] Serum or plasma magnesium measurement (mass/volume) 1.9 1.3 - 2.1 07/03/2018 [facility] Serum or plasma total bilirubin measurement (mass/volume) 1.4 0.2 - 1.2 07/03/2018 [facility] Aspartate Amino Transf (AST/SGOT) 19 5 - 34 07/03/2018 [facility] Serum or plasma alanine aminotransferase measurement (enzymatic activity/volume) 31 0 - 55 07/03/2018 [facility] Serum or plasma protein measurement (mass/volume) 7.3 6.5 - 8.1 07/03/2018 [facility] Serum or plasma albumin measurement (mass/volume) 3.6 3.5 - 5.0 07/03/2018 [facility] Plasma globulin measurement (mass/volume) 3.7 2.3 - 3.5 07/03/2018 [facility] Serum or plasma albumin/globulin mass ratio 1.0 0.8 - 2.0 07/03/2018 [facility] Serum or plasma alkaline phosphatase measurement (enzymatic activity/volume) 85 40 - 150 07/03/2018 [facility] BNP Bld-mCnc 11.9 0 - 100 07/03/2018 [facility] Serum or plasma creatine kinase measurement (enzymatic activity/volume) 32 29 - 168 07/03/2018 [facility] Serum or plasma creatine kinase MB measurement (mass/volume) 0.60 0 - 5.0 07/03/2018 [facility] Troponin I measurement by highly sensitive enzyme immunoassay 0.017 0 - 0.300 07/03/2018 [facility] Activated partial thromboplastin time (aPTT) in platelet poor plasma bycoagulation assay Activated partial thromboplastin time (aPTT) in platelet poor plasma bycoagulation assay 26.3 23.8 - 35.5 11/26/2017 [facility] Automated blood basophil count as percentage of total leukocytes Automated blood basophil count as percentage of total leukocytes 0.1 0.0 - 1.0 11/26/2017 [facility] Automated blood eosinophil count as percentage of total leukocytes Automated blood eosinophil count as percentage of total leukocytes 0.2 0.0 - 6.0 11/26/2017 [facility] Automated blood hematocrit (volume fraction) Automated blood hematocrit (volume fraction) 43.4 34.2 - 44.1 11/26/2017 [facility] Automated blood lymphocyte count as percentage ot total leukocytes Automated blood lymphocyte count as percentage ot total leukocytes 1.0 18.0 - 39.1 11/26/2017 [facility] Automated blood monocyte count as percentage of total leukocytes Automated blood monocyte count as percentage of total leukocytes 0.7 4.4 - 11.3 11/26/2017 [facility] Automated blood platelet count (count/volume) Automated blood platelet count (count/volume) 250 140 - 360 11/26/2017 [facility] Automated blood segmented neutrophil count as percentage of total leukocytes Automated blood segmented neutrophil count as percentage of total leukocytes 6.4 38.7 - 80.0 11/26/2017 [facility] Automated erythrocyte mean corpuscular hemoglobin (mass per erythrocyte) Automated erythrocyte mean corpuscular hemoglobin (mass per erythrocyte) 31.3 28 - 32 11/26/2017 [facility] Automated erythrocyte mean corpuscular hemoglobin concentration measurement (mass/volume) Automated erythrocyte mean corpuscular hemoglobin concentration measurement (mass/volume) 34.3 31 - 35 11/26/2017 [facility] Automated erythrocyte mean corpuscular volume Automated erythrocyte mean corpuscular volume 91.2 81 - 99 11/26/2017 [facility] Automated urine sediment leukocyte count by microscopy (number/high power field) Automated urine sediment leukocyte count by microscopy (number/high power field) NONE 0 - 5 11/26/2017 [facility] Bacteria detection in urine sediment by light microscopy Bacteria detection in urine sediment by light microscopy NONE NONE 11/26/2017 [facility] Blood erythrocytes automated count (number/volume) Blood erythrocytes automated count (number/volume) 4.76 3.6 - 5.1 11/26/2017 [facility] Blood hemoglobin measurement (moles/volume) Blood hemoglobin measurement (moles/volume) 14.9 12.0 - 16.0 11/26/2017 [facility] Blood leukocytes automated count (number/volume) Blood leukocytes automated count (number/volume) 8.36 4.8 - 10.8 11/26/2017 [facility] Epithelial cells detection in urine sediment by light microscopy Epithelial cells detection in urine sediment by light microscopy MODERATE NONE 11/26/2017 [facility] Erythrocytes detection in urine sediment by light microscopy Erythrocytes detection in urine sediment by light microscopy NONE 0 - 5 11/26/2017 [facility] Estimated glomerular filtration rate (GFR) determination Estimated glomerular filtration rate (GFR) determination >60 60 11/26/2017 [facility] Glucose measurement Glucose measurement 136 74 - 118 11/26/2017 [facility] INR in Platelet poor plasma by Coagulation assay INR in Platelet poor plasma by Coagulation assay 1.14 11/26/2017 [facility] Plasma globulin measurement (mass/volume) Plasma globulin measurement (mass/volume) 2.9 2.3 - 3.5 11/26/2017 [facility] Prothrombin time (PT) in platelet poor plasma by coagulation assay Prothrombin time (PT) in platelet poor plasma by coagulation assay 13.7 11.9 - 14.5 11/26/2017 [facility] Serum or plasma alanine aminotransferase measurement (enzymatic activity/volume) Serum or plasma alanine aminotransferase measurement (enzymatic activity/volume) 75 0 - 55 11/26/2017 [facility] Serum or plasma albumin measurement (mass/volume) Serum or plasma albumin measurement (mass/volume) 4.3 3.5 - 5.0 11/26/2017 [facility] Serum or plasma albumin/globulin mass ratio Serum or plasma albumin/globulin mass ratio 1.5 0.8 - 2.0 11/26/2017 [facility] Serum or plasma alkaline phosphatase measurement (enzymatic activity/volume) Serum or plasma alkaline phosphatase measurement (enzymatic activity/volume) 99 40 - 150 11/26/2017 [facility] Serum or plasma anion gap Serum or plasma anion gap 13.2 8 - 16 11/26/2017 [facility] Serum or plasma calcium measurement (mass/volume) Serum or plasma calcium measurement (mass/volume) 9.9 8.4 - 10.2 11/26/2017 [facility] Serum or plasma carbon dioxide, total measurement (moles/volume) Serum or plasma carbon dioxide, total measurement (moles/volume) 24 22 - 29 11/26/2017 [facility] Serum or plasma chloride measurement (moles/volume) Serum or plasma chloride measurement (moles/volume) 109 98 - 107 11/26/2017 [facility] Serum or plasma creatine kinase MB measurement (mass/volume) Serum or plasma creatine kinase MB measurement (mass/volume) 0.60 0 - 5.0 11/26/2017 [facility] Serum or plasma creatine kinase measurement (enzymatic activity/volume) Serum or plasma creatine kinase measurement (enzymatic activity/volume) 35 29 - 168 11/26/2017 [facility] Serum or plasma creatinine measurement (mass/volume) Serum or plasma creatinine measurement (mass/volume) 0.78 0.57 - 1.11 11/26/2017 [facility] Serum or plasma potassium measurement (moles/volume) Serum or plasma potassium measurement (moles/volume) 4.2 3.5 - 5.1 11/26/2017 [facility] Serum or plasma protein measurement (mass/volume) Serum or plasma protein measurement (mass/volume) 7.2 6.5 - 8.1 11/26/2017 [facility] Serum or plasma sodium measurement (moles/volume) Serum or plasma sodium measurement (moles/volume) 142 136 - 145 11/26/2017 [facility] Serum or plasma total bilirubin measurement (mass/volume) Serum or plasma total bilirubin measurement (mass/volume) 0.7 0.2 - 1.2 11/26/2017 [facility] Serum or plasma urea nitrogen measurement (mass/volume) Serum or plasma urea nitrogen measurement (mass/volume) 11 7 - 26 11/26/2017 [facility] Serum or plasma urea nitrogen/creatinine mass ratio Serum or plasma urea nitrogen/creatinine mass ratio 14 6 - 25 11/26/2017 [facility] Specific gravity of Urine by Test strip Specific gravity of Urine by Test strip 1.015 1.010 - 1.025 11/26/2017 [facility] Troponin I measurement by highly sensitive enzyme immunoassay Troponin I measurement by highly sensitive enzyme immunoassay <0.001 0 - 0.300 11/26/2017 [facility] Urine clarity Urine clarity CLEAR CLEAR 11/26/2017 [facility] Urine color determination Urine color determination YELLOW YELLOW 11/26/2017 [facility] Urine erythrocytes detection Urine erythrocytes detection NEGATIVE NEGATIVE 11/26/2017 [facility] Urine glucose detection Urine glucose detection NEGATIVE NEGATIVE 11/26/2017 [facility] Urine ketones detection by automated test strip Urine ketones detection by automated test strip NEGATIVE NEGATIVE 11/26/2017 [facility] Urine leukocyte esterase detection by dipstick Urine leukocyte esterase detection by dipstick NEGATIVE NEGATIVE 11/26/2017 [facility] Urine nitrite detection Urine nitrite detection NEGATIVE NEGATIVE 11/26/2017 [facility] Urine pH measurement by automated test strip Urine pH measurement by automated test strip 5 5 - 7 11/26/2017 [facility] Urine protein measurement by test strip (mass/volume) Urine protein measurement by test strip (mass/volume) NEGATIVE NEGATIVE 11/26/2017 [facility] Urine total bilirubin measurement (mass/volume) Urine total bilirubin measurement (mass/volume) NEGATIVE NEGATIVE 11/26/2017 [facility] Urine urobilinogen measurement by test strip (mass/volume) Urine urobilinogen measurement by test strip (mass/volume) 0.2 0.2 - 1 11/26/2017 [facility] Red Cell Distribution Width 12.9 11.7 - 14.4 11/26/2017 [facility] IM GRANULOCYTES % 0.0 0.0 - 1.0 11/26/2017 [facility] Aspartate Amino Transf (AST/SGOT) 59 5 - 34 11/26/2017 [facility] B-Type Natriuretic Peptide 19.4 0 - 100 11/26/2017 [facility] Bacterial urine culture Urine Culture [facility] Pathology Reports No Data Provided for This Section Diagnostic Reports Report Value Date Source Venous blood ionized calcium measurement (mass/volume) Ionized Calcium [facility] Consultation Notes No Data Provided for This Section Discharge Summaries No Data Provided for This Section History and Physicals No Data Provided for This Section Vital Signs No Data Provided for This Section Encounters Location Location Details Encounter Type Encounter Number Reason For Visit Attending Provider ADM Date DC Date Status Source Departed Emergency Room [id number] ANNA WATT MD 11/26/2017 11/26/2017 [facility] Departed Emergency Room [id number] GUILLERMO BEY MD 12/24/2017 12/25/2017 [facility] Departed Emergency Room [id number] ANNA WATT MD 07/03/2018 07/03/2018 [facility] Departed Emergency Room [id number] HARRISON FALK MD 08/18/2018 08/18/2018 [facility] Discharged Inpatient [id number] JOHN LEROY MD 08/31/2018 09/06/2018 [facility] Discharged Inpatient (obs) [id number] JOHN LEROY MD 09/12/2018 09/16/2018 [facility] Procedures Procedure Code Date Perfomer Comments Source INTRODUCTION OF NUTRITIONAL INTO CENTRAL VEIN, PERC APPROACH [id number] 09/01/2018 [facility] INSERTION OF INFUSION DEV INTO SUP VENA CAVA, PERC APPROACH [id number] 08/31/2018 [facility] INTRODUCTION OF VASOPRESSOR INTO CENTRAL VEIN, PERC APPROACH [id number] 08/31/2018 [facility] Computed tomography of brain without radiopaque contrast [id number] 07/03/2018 [facility] Computed tomography of cervical spine without contrast [id number] 07/03/2018 [facility] Computed tomography of thoracic spine without contrast [id number] 07/03/2018 [facility] Computed tomography of lumbar spine without contrast [id number] 07/03/2018 [facility] X-ray of chest, single view [id number] 07/03/2018 [facility] Assessment and Plan No Data Provided for This Section Plan of Care Plan of Care Date Source Discharge Date 09/16/18 1:04pm Disposition HOME, SELF-CARE Instructions/Education Provided Clostridium Difficile Prescriptions See Medication Section Additional Instructions/Education F/U WITH PCP IN 1-2 WEEKS F/U WITH DR RAY DISCUSSED 09/16/2018 [facility] Discharge Date 08/18/18 6:30pm Disposition HOME, SELF-CARE Condition at Discharge Stable Instructions/Education Provided Urinary Tract Infection - Women Prescriptions See Medication Section Referrals DAVID PRADO D.O. Address: [address] [place] [id number] Note: Follow up with your PCP, give him a copy of your Antibiogram. This will help him manage your UTIs better. Drink plently of fluids and remember to take your blood pressure medication each day as prescibed. Additional Instructions/Education Call for follow up appointment to see your medical provider or the referral listed. Take over the counter Motrin or Tylenol medication as needed for comfort. If prescribed medication on discharge, take the medication as prescribed and adhere to the warnings given for medication such as no swimming, driving operating heavy machinery, drinking or mixing with other medications that can interact with the narcotic. discussed at the bedside, drink fluids, rest and return to the emergency department for any fever, shortness of breath, chest pain, abdominal pain, trouble handling oral secretions or any new concerns. 08/18/2018 [facility] Discharge Date 07/03/18 10:30pm Disposition HOME, SELF-CARE Condition at Discharge Stable Instructions/Education Provided Strains Back Pain Forms Provided Work/School Excuse Prescriptions See Medication Section Referrals ROBYN AGUILAR M.D. Address: [address] [place] [id number] Additional Instructions/Education FOLLOW UP WITH PRIMARY CARE PHYSICIAN. TAKE ALL MEDICATION DIRECTED. 07/03/2018 [facility] Discharge Date 12/25/17 2:08am Disposition HOME, SELF-CARE Condition at Discharge Stable Instructions/Education Provided Sprains Prescriptions See Medication Section Referrals ROBYN AGUILAR M.D. Address: [address] [place] [id number] Additional Instructions/Education FOLLOW UP WITH PCP IN 3 DAYS IF NO IMPROVEMENT OF SYMPTOMS 12/25/2017 [facility] Social History Social History Date Source Smoking Status Start Date Stop Date Never Smoker 09/16/2018 [facility] Family History No Data Provided for This Section Advance Directives Order Name Results Value Date Source Advance Directives Advance Directives Directive Response Recorded Date/Time Does the patient have an advance directive? No 09/13/18 5:10pm Do you have a Directive to Physician? No 09/12/18 8:50pm Do you have a Medical Power of Senior [employer] Developer? No 09/12/18 8:50pm Do you have an out of hospital Do Not Resuscitate Order? No 09/12/18 8:50pm Do you have any special needs we should be aware of? No 09/12/18 8:50pm Do you have a support person here with you today? Yes 09/12/18 8:50pm Did patient receive Notice of Privacy Practices? Yes 09/12/18 8:50pm Did patient receive patient rights and responsibilities? Yes 09/12/18 8:50pm 09/16/2018 [facility] Advance Directives Advance Directives Directive Response Recorded Date/Time Does the patient have an advance directive? No 05/15/12 3:09pm If yes, is advance directive on file with [facility]? No 08/18/18 5:20pm If not on file with [facility] will patient provide a copy? No 08/18/18 5:20pm Do you have a Directive to Physician? No 08/18/18 5:20pm Do you have a Medical Power of Senior [employer] Developer? No 08/18/18 5:20pm Do you have an out of hospital Do Not Resuscitate Order? No 08/18/18 5:20pm Do you have any special needs we should be aware of? No 08/18/18 5:20pm Do you have a support person here with you today? Yes 08/18/18 5:20pm Did patient receive Notice of Privacy Practices? Yes 08/18/18 5:20pm Did patient receive patient rights and responsibilities? Yes 08/18/18 5:20pm 08/18/2018 [facility] Advance Directives Advance Directives Directive Response Recorded Date/Time Does the patient have an advance directive? No 05/15/12 3:09pm Do you have a Directive to Physician? No 07/03/18 5:24pm Do you have a Medical Power of Senior Business [employer] Developer? No 07/03/18 5:24pm Do you have an out of hospital Do Not Resuscitate Order? No 07/03/18 5:24pm Do you have any special needs we should be aware of? No 07/03/18 5:24pm Do you have a support person here with you today? Yes 07/03/18 5:24pm Did patient receive Notice of Privacy Practices? Yes 07/03/18 5:24pm Did patient receive patient rights and responsibilities? Yes 07/03/18 5:24pm 07/03/2018 [facility] Advance Directives Advance Directives Directive Response Recorded Date/Time Does the patient have an advance directive? No 05/15/12 3:09pm If yes, is advance directive on file with [facility]? No 05/15/12 3:09pm If not on file with [facility] will patient provide a copy? No 05/15/12 3:09pm 12/25/2017 [facility] Functional Status No Data Provided for This Section
[2019-03-19 19:25] LABS: BASOPHILS # (AUTO) 0.1 (0.0-0.1); BASOPHILS % 0.6 % (0.0-1.0); EOSINOPHILS # (AUTO) 0.2 (0.0-0.4); EOSINOPHILS % 2.2 % (0.0-6.0); HEMATOCRIT 45.4 % (34.2-44.1); HEMOGLOBIN 15.8 g/dL (12.0-16.0); LYMPHOCYTES # (AUTO) 1.3 (1.0-3.2); LYMPHOCYTES % 13.2 % (18.0-39.1); MEAN CORPUSCULAR HEMOGLOBIN 30.9 pg (28-32); MEAN CORPUSCULAR HGB CONC 34.8 g/dL (31-35); MEAN CORPUSCULAR VOLUME 88.8 fL (81-99); MONOCYTES # (AUTO) 0.9 (0.2-0.8); MONOCYTES % 9.2 % (4.4-11.3); NEUTROPHILS # (AUTO) 7.5 (2.1-6.9); NEUTROPHILS % 74.3 % (38.7-80.0); PLATELET COUNT 252 x10e3/uL (140-360); RED BLOOD COUNT 5.11 x10e6/uL (3.6-5.1)
[2019-03-19 19:25] LABS: BILIRUBIN,URINE NEGATIVE (NEGATIVE); CLARITY,URINE CLEAR (CLEAR); COLOR,URINE YELLOW (YELLOW); KETONES,URINE NEGATIVE (NEGATIVE); LEUKOCYTE ESTERASE ,URINE NEGATIVE (NEGATIVE); NITRITE,URINE NEGATIVE (NEGATIVE); PROTEIN,URINE DIPSTICK NEGATIVE (NEGATIVE); URINE UROBILINOGEN 0.2 mg/dL (0.2 - 1)
--- NOTE | 2019-03-19 19:29 | Diagnostic Imaging Report ---
EXAMINATION: CHEST 2 VIEWS INDICATION: ^SEPSIS ^Y COMPARISON: Chest radiograph 09/12/2018 FINDINGS: PA and lateral views TUBES and LINES: None. LUNGS: Lungs are well inflated. Stable mild atelectasis in the right lower lobe. There is no evidence of pneumonia or pulmonary edema. PLEURA: No pleural effusion or pneumothorax. HEART AND MEDIASTINUM: The cardiomediastinal silhouette is unremarkable. BONES AND SOFT TISSUES: Mild increased kyphosis of the lower thoracic spine. Soft tissues are unremarkable. UPPER ABDOMEN: No free air under the diaphragm. IMPRESSION: No acute thoracic abnormality. Signed by: Dr. Shima Jang M.D. on 03/19/2019 7:25 PM
[2019-03-19 19:33] LABS: BACTERIA,URINE FEW /HPF; EPITHELIAL CELLS,URINE MODERATE /LPF; RBC,URINE 0-5 /HPF (0-5)
[2019-03-19 19:33] LABS: ALBUMIN 4.3 g/dL (3.5-5.0); ALBUMIN/GLOBULIN RATIO 1.4 (0.8-2.0); ANION GAP 17.1 mmol/L (8-16); CREATININE, SERUM 1.11 mg/dL (0.57-1.11); POTASSIUM 4.1 mmol/L (3.5-5.1)
[2019-03-19 19:39] LABS: CREATINE KINASE MB 0.9 ng/mL (0-5.0)
[2019-03-19] MEDS ORDERED: ACETAMINOPHEN 325 MG TAB PO ONE (20:00)
[2019-03-19] MEDS ORDERED: SODIUM CHLORIDE 0.9% 1000ML 1,000 ML IV SCH (20:00)
== END 2019-03-19 21:43 | disposition home or self-care (01) ==
LOC: ER 17:57
DX: R00.2 Palpitations (principal); J20.9 Acute bronchitis, unspecified; Z88.2 Allergy status to sulfonamides; Z88.8 Allergy status to other drugs, medicaments and biological substances; Z91.041 Radiographic dye allergy status; I10 Essential (primary) hypertension; Z87.440 Personal history of urinary (tract) infections; Z98.84 Bariatric surgery status; Z90.49 Acquired absence of other specified parts of digestive tract; Z82.49 Family history of ischemic heart disease and other diseases of the circulatory system
CPT/HCPCS: 36415; 71046; 80053; 81001; 82550; 82553; 83605; 84484; 85025; 87040; 87086; 93005; 99284; J7030

== ENCOUNTER 2020-07-11 17:24 | Emergency (ER) | payer MEDICARE ==
[~2020-07-11] VITALS: Ht 170.2 cm; Wt 89.8 kg
[~2020-07-11 17:24] MED LIST changes: +MACROBID 100 M100 MG PO; +PYRIDIUM100 MG PO; +TYLENOL WITH C1 EACH PO
[2020-07-11] MEDS ORDERED: ONDANSETRON HCL INJ 2MG/ML 2ML 2 MG/ML VIAL IV STA (17:47)
[2020-07-11] MEDS ORDERED: SODIUM CHLORIDE 0.9% 1000ML 1,000 ML IV STA (17:47)
[2020-07-11] MEDS ORDERED: MORPHINE SULFATE INJ 4 MG/ML INJ 1ML IV STA (17:47)
[2020-07-11 18:17] LABS: BASOPHILS % 0.6 % (0.0-1.0); EOSINOPHILS # (AUTO) 0.1 (0.0-0.4); EOSINOPHILS % 2.2 % (0.0-6.0); HEMATOCRIT 43.2 % (34.2-44.1); HEMOGLOBIN 14.6 g/dL (12.0-16.0); LYMPHOCYTES % 17.7 % (18.0-39.1); MEAN CORPUSCULAR HEMOGLOBIN 29.7 pg (28-32); MEAN CORPUSCULAR HGB CONC 33.8 g/dL (31-35); MONOCYTES # (AUTO) 0.4 (0.2-0.8); MONOCYTES % 7.8 % (4.4-11.3); NEUTROPHILS # (AUTO) 3.9 (2.1-6.9); NEUTROPHILS % 71.5 % (38.7-80.0); PLATELET COUNT 159 x10e3/uL (140-360); RED BLOOD COUNT 4.91 x10e6/uL (3.6-5.1); RED CELL DISTRIBUTION WIDTH 15.3 % (11.7-14.4)
[2020-07-11 18:36] LABS: ALANINE AMINOTRANSFERASE 24 IU/L (0-55); ALBUMIN 3.9 g/dL (3.5-5.0); ALBUMIN/GLOBULIN RATIO 1.2 (0.8-2.0); ALKALINE PHOSPHATASE 136 IU/L (40-150); ANION GAP 16.1 mmol/L (8-16); BLOOD UREA NITROGEN < 5 mg/dL (7-26); CARBON DIOXIDE 25 mmol/L (22-29); CHLORIDE 102 mmol/L (98-107); CREATINE KINASE 62 IU/L (29-168); CREATININE, SERUM 0.76 mg/dL (0.57-1.11); EST GLOMERULAR FILTRATION RATE > 60 ML/MIN (60-); GLUCOSE 141 mg/dL (74-118); LIPASE 33 U/L (8-78); POTASSIUM 3.1 mmol/L (3.5-5.1); SODIUM 140 mmol/L (136-145)
[2020-07-11 18:39] LABS: BUN/CREATININE RATIO 7 (6-25)
[2020-07-11 19:20] LABS: CLARITY,URINE HAZY (CLEAR); COLOR,URINE YELLOW (YELLOW)
[2020-07-11 19:21] LABS: KETONES,URINE NEGATIVE (NEGATIVE); LEUKOCYTE ESTERASE ,URINE TRACE (NEGATIVE); NITRITE,URINE NEGATIVE (NEGATIVE); PROTEIN,URINE DIPSTICK NEGATIVE (NEGATIVE); URINE UROBILINOGEN 0.2 mg/dL (0.2 - 1)
[2020-07-11 19:26] LABS: BACTERIA,URINE FEW /HPF; EPITHELIAL CELLS,URINE FEW /LPF; RBC,URINE 0-5 /HPF (0-5); WBC,URINE (MAN) 0-5 /HPF (0-5)
[2020-07-11 20:43] VITALS: BP 138/79
== END 2020-07-11 20:47 | disposition home or self-care (01) ==
LOC: ER 17:41
DX: R10.9 Unspecified abdominal pain (principal); R11.2 Nausea with vomiting, unspecified; R19.7 Diarrhea, unspecified; I10 Essential (primary) hypertension; Z88.2 Allergy status to sulfonamides; Z88.1 Allergy status to other antibiotic agents; Z91.041 Radiographic dye allergy status; Z87.440 Personal history of urinary (tract) infections
CPT/HCPCS: 36415; 74176; 80053; 81001; 82550; 82553; 83690; 84484; 85025; 93005; 99284; J2405; J7030

== ENCOUNTER 2020-08-13 16:28 | Inpatient (IN) | payer MEDICARE ==
[~2020-08-13] VITALS: Ht 170.2 cm; Wt 87.5 kg
[2020-08-13] MEDS ORDERED: CEFEPIME 1GM/NS 0.9% 50 ML 50 ML IV STA (16:49)
[2020-08-13] MEDS ORDERED: SODIUM CHLORIDE 0.9% 1000ML 1,000 ML IV STA (16:49)
[2020-08-13] MEDS ORDERED: AMPICILLIN SOD/SULBACTAM 1.5GM 50 ML IV STA (16:55)
[2020-08-13 16:56] LABS: BASOPHILS # (AUTO) 0.1 (0.0-0.1); BASOPHILS % 0.8 % (0.0-1.0); EOSINOPHILS # (AUTO) 0.2 (0.0-0.4); EOSINOPHILS % 1.7 % (0.0-6.0); HEMATOCRIT 42.2 % (34.2-44.1); HEMOGLOBIN 14.4 g/dL (12.0-16.0); LYMPHOCYTES # (AUTO) 1.3 (1.0-3.2); LYMPHOCYTES % 15.3 % (18.0-39.1); MEAN CORPUSCULAR HEMOGLOBIN 29.4 pg (28-32); MEAN CORPUSCULAR HGB CONC 34.1 g/dL (31-35); MEAN CORPUSCULAR VOLUME 86.1 fL (81-99); MONOCYTES # (AUTO) 0.9 (0.2-0.8); MONOCYTES % 10.1 % (4.4-11.3); NEUTROPHILS # (AUTO) 6.3 (2.1-6.9); NEUTROPHILS % 71.5 % (38.7-80.0); PLATELET COUNT 265 x10e3/uL (140-360); RED CELL DISTRIBUTION WIDTH 16.1 % (11.7-14.4)
[2020-08-13] MEDS ORDERED: LACTATED RINGER'S 1,000 ML INJ ONE ×3 (17:30→20:15)
[2020-08-13 18:33] LABS: CLARITY,URINE SL CLOUDY (CLEAR); COLOR,URINE ORANGE (YELLOW); KETONES,URINE 1+ (NEGATIVE); LEUKOCYTE ESTERASE ,URINE MODERATE (NEGATIVE); NITRITE,URINE POSITIVE (NEGATIVE); PROTEIN,URINE DIPSTICK 1+ (NEGATIVE); URINE UROBILINOGEN 8 mg/dL (0.2 - 1)
[2020-08-13] MEDS ORDERED: SODIUM CHLORIDE 0.9% 1000ML 1,000 ML IV SCH ×2 (18:45)
[2020-08-13 18:49] LABS: BACTERIA,URINE MANY /HPF
[2020-08-13 18:55] LABS: ALBUMIN 3.8 g/dL (3.5-5.0); ALBUMIN/GLOBULIN RATIO 1.2 (0.8-2.0); ANION GAP 21.7 mmol/L (8-16); CALCIUM 9.1 mg/dL (8.4-10.2); CREATININE, SERUM 0.93 mg/dL (0.57-1.11)
[2020-08-13 18:57] LABS: POTASSIUM 2.7 mmol/L (3.5-5.1)
[2020-08-13] MEDS ORDERED: LACTATED RINGER'S 1,000 ML INJ SCH (19:00)
[2020-08-13] MEDS ORDERED: POTASSIUM CHLORIDE 20MEQ/100ML 200 ML IV ONE (19:00)
[2020-08-13 19:37] LABS: PHENCYCLIDINE SCREEN,URINE NEGATIVE (NEGATIVE)
[2020-08-13 19:38] LABS: AMPHETAMINES SCREEN,URINE NEGATIVE (NEGATIVE); BENZODIAZEPINES SCREEN,URINE NEGATIVE (NEGATIVE)
[2020-08-13] MEDS ORDERED: LACTATED RINGER'S 1,000 ML IV ONE (19:45)
[2020-08-13 21:50] VITALS: BP 132/72
[2020-08-13 22:34] VITALS: BP 141/82
[2020-08-14] VITALS (8 sets, daily range): BP systolic 132–166; BP diastolic 72–98
[2020-08-14] MEDS ORDERED: TIZANIDINE HCL4 MG (01:03)
[2020-08-14] MEDS ORDERED: DICYCLOMINE HCL10 MG (01:03)
[2020-08-14 01:23] LABS: BASOPHILS % 0.5 % (0.0-1.0); EOSINOPHILS # (AUTO) 0.1 (0.0-0.4); EOSINOPHILS % 1.8 % (0.0-6.0); HEMATOCRIT 33.9 % (34.2-44.1); HEMOGLOBIN 11.6 g/dL (12.0-16.0); LYMPHOCYTES # (AUTO) 1.3 (1.0-3.2); LYMPHOCYTES % 18.4 % (18.0-39.1); MEAN CORPUSCULAR HEMOGLOBIN 29.7 pg (28-32); MEAN CORPUSCULAR HGB CONC 34.2 g/dL (31-35); MEAN CORPUSCULAR VOLUME 86.9 fL (81-99); MONOCYTES # (AUTO) 0.9 (0.2-0.8); MONOCYTES % 11.6 % (4.4-11.3); NEUTROPHILS # (AUTO) 4.9 (2.1-6.9); NEUTROPHILS % 67.4 % (38.7-80.0); PLATELET COUNT 165 x10e3/uL (140-360); RED CELL DISTRIBUTION WIDTH 16.1 % (11.7-14.4)
[2020-08-14 01:38] LABS: BLOOD UREA NITROGEN 10 mg/dL (7-26); BUN/CREATININE RATIO 13 (6-25); CALCIUM 8.2 mg/dL (8.4-10.2); CARBON DIOXIDE 23 mmol/L (22-29); CHLORIDE 106 mmol/L (98-107); CREATININE, SERUM 0.76 mg/dL (0.57-1.11); EST GLOMERULAR FILTRATION RATE > 60 ML/MIN (60-); GLUCOSE 170 mg/dL (74-118); SODIUM 143 mmol/L (136-145)
[2020-08-14] MEDS ORDERED: PNEUMOCOCCAL VACCINE POLYVALENT 23 MCG/0.5 ML VIAL IM SCH (01:52)
[2020-08-14] MEDS ORDERED: POTASSIUM CHLORIDE 10MEQ EA PO ONE (06:45)
[2020-08-14] MEDS ORDERED: TIZANIDINE HCL 4 MG TAB PO PRN (06:45)
[2020-08-14] MEDS ORDERED: DEXTROSE 50% SYRINGE 50 ML IV PRN (06:45)
[2020-08-14] MEDS: INSULIN LISPRO 100 UNIT/1 ML 3ML VIAL SQ SCH ×4 (07:30→21:00)
[2020-08-14] MEDS: DICYCLOMINE HCL 10 MG CAP PO SCH ×3 (07:40→16:27)
[2020-08-14] MEDS: AZTREONAM 1 GM/NS 50 ML 50 ML IV SCH ×3 (09:54→21:03)
[2020-08-14] MEDS: ZOLPIDEM TARTRATE 10 MG TAB PO PRN (21:02)
[2020-08-14] MEDS ORDERED: SODIUM CHLORIDE 0.9% 250ML 250 ML ONE (23:57)
[2020-08-15] VITALS (8 sets, daily range): BP systolic 129–161; BP diastolic 81–96
[2020-08-15 05:44] LABS: BASOPHILS # (AUTO) 0.1 (0.0-0.1); BASOPHILS % 0.7 % (0.0-1.0); EOSINOPHILS # (AUTO) 0.3 (0.0-0.4); EOSINOPHILS % 3.6 % (0.0-6.0); HEMATOCRIT 36.3 % (34.2-44.1); LYMPHOCYTES # (AUTO) 1.7 (1.0-3.2); LYMPHOCYTES % 23.4 % (18.0-39.1); MEAN CORPUSCULAR HGB CONC 33.1 g/dL (31-35); MEAN CORPUSCULAR VOLUME 87.7 fL (81-99); MONOCYTES # (AUTO) 0.8 (0.2-0.8); MONOCYTES % 10.9 % (4.4-11.3); NEUTROPHILS # (AUTO) 4.3 (2.1-6.9); PLATELET COUNT 153 x10e3/uL (140-360); RED BLOOD COUNT 4.14 x10e6/uL (3.6-5.1); RED CELL DISTRIBUTION WIDTH 16.6 % (11.7-14.4)
[2020-08-15 06:08] LABS: MAGNESIUM 1.5 MG/DL (1.3-2.1); PHOSPHORUS 3.3 MG/DL (2.3-4.7)
[2020-08-15] MEDS: AZTREONAM 1 GM/NS 50 ML 50 ML IV SCH ×3 (06:10→22:08)
[2020-08-15 06:30] LABS: THYROID STIMULATING HORMONE 1.393 uIU/mL (0.350-4.940)
[2020-08-15 06:47] LABS: BLOOD UREA NITROGEN 7 mg/dL (7-26); BUN/CREATININE RATIO 10 (6-25); CALCIUM 8.4 mg/dL (8.4-10.2); CARBON DIOXIDE 23 mmol/L (22-29); CHLORIDE 106 mmol/L (98-107); EST GLOMERULAR FILTRATION RATE > 60 ML/MIN (60-); GLUCOSE 127 mg/dL (74-118); SODIUM 141 mmol/L (136-145)
[2020-08-15] MEDS: INSULIN LISPRO 100 UNIT/1 ML 3ML VIAL SQ SCH ×4 (07:30→21:00)
[2020-08-15] MEDS: DICYCLOMINE HCL 10 MG CAP PO SCH ×3 (08:36→17:01)
[2020-08-15] MEDS ORDERED: DEXTROSE 50% SYRINGE 50 ML IV PRN (13:45)
[2020-08-15] MEDS ORDERED: POLYETHYLENE GLYCOL 3350 17 GM PACK PO PRN (13:45)
[2020-08-15] MEDS ORDERED: ACETAMINOPHEN 325 MG TAB PO PRN (13:45)
[2020-08-15] MEDS ORDERED: DOCUSATE SODIUM 100 MG CAP PO PRN (13:45)
[2020-08-15] MEDS ORDERED: HYDRALAZINE HCL 20 MG/ML VIAL IV PRN (13:45)
[2020-08-15] MEDS ORDERED: ONDANSETRON HCL INJ 2MG/ML 2ML 2 MG/ML VIAL IV PRN (13:45)
[2020-08-15] MEDS ORDERED: ENOXAPARIN SOD INJ 40 MG/0.4 ML SYR SC SCH (17:00)
[2020-08-15] MEDS ORDERED: MELATONIN 5 MG TABLET PO PRN (21:00)
[2020-08-15] MEDS ORDERED: SODIUM CHLORIDE 0.9% 250ML 250 ML ONE (22:11)
[2020-08-15] MEDS: ZOLPIDEM TARTRATE 10 MG TAB PO PRN (22:15)
[2020-08-16] VITALS (9 sets, daily range): BP systolic 126–156; BP diastolic 77–98
[2020-08-16] MEDS: AZTREONAM 1 GM/NS 50 ML 50 ML IV SCH ×3 (05:25→21:54)
[2020-08-16] MEDS ORDERED: ONDANSETRON HCL 4 MG ORAL DISINTEGRATING TAB PO PRN (07:00)
[2020-08-16] MEDS: POTASSIUM CHLORIDE 20 MEQ TAB CR PO PRN (07:26)
[2020-08-16] MEDS: DICYCLOMINE HCL 10 MG CAP PO SCH ×3 (08:18→18:23)
[2020-08-16] MEDS: PANTOPRAZOLE SOD 40 MG TABEC PO SCH (08:18)
[2020-08-16] MEDS: INSULIN LISPRO 100 UNIT/1 ML 3ML VIAL SQ SCH ×4 (08:30→21:00)
[2020-08-16 15:11] LABS: BASOPHILS # (AUTO) 0.1 (0.0-0.1); BASOPHILS % 0.6 % (0.0-1.0); EOSINOPHILS # (AUTO) 0.3 (0.0-0.4); EOSINOPHILS % 2.4 % (0.0-6.0); HEMATOCRIT 38.1 % (34.2-44.1); HEMOGLOBIN 12.7 g/dL (12.0-16.0); LYMPHOCYTES # (AUTO) 1.3 (1.0-3.2); LYMPHOCYTES % 12.7 % (18.0-39.1); MEAN CORPUSCULAR HEMOGLOBIN 29.7 pg (28-32); MEAN CORPUSCULAR HGB CONC 33.3 g/dL (31-35); MEAN CORPUSCULAR VOLUME 89.2 fL (81-99); MONOCYTES # (AUTO) 0.9 (0.2-0.8); MONOCYTES % 8.8 % (4.4-11.3); NEUTROPHILS # (AUTO) 7.8 (2.1-6.9); NEUTROPHILS % 75.1 % (38.7-80.0); PLATELET COUNT 168 x10e3/uL (140-360); RED BLOOD COUNT 4.27 x10e6/uL (3.6-5.1); RED CELL DISTRIBUTION WIDTH 16.9 % (11.7-14.4)
[2020-08-16 15:26] LABS: ANION GAP 14.4 mmol/L (8-16); BLOOD UREA NITROGEN 9 mg/dL (7-26); BUN/CREATININE RATIO 12 (6-25); CALCIUM 8.4 mg/dL (8.4-10.2); CARBON DIOXIDE 22 mmol/L (22-29); CHLORIDE 105 mmol/L (98-107); CREATININE, SERUM 0.74 mg/dL (0.57-1.11); EST GLOMERULAR FILTRATION RATE > 60 ML/MIN (60-); GLUCOSE 154 mg/dL (74-118); POTASSIUM 3.4 mmol/L (3.5-5.1); SODIUM 138 mmol/L (136-145)
[2020-08-16] MEDS: ZOLPIDEM TARTRATE 10 MG TAB PO PRN (20:14)
[2020-08-17] VITALS (9 sets, daily range): BP systolic 108–156; BP diastolic 54–101
[2020-08-17] MEDS: AZTREONAM 1 GM/NS 50 ML 50 ML IV SCH ×3 (05:12→22:00)
[2020-08-17 05:29] LABS: BASOPHILS # (AUTO) 0.1 (0.0-0.1); BASOPHILS % 0.5 % (0.0-1.0); EOSINOPHILS # (AUTO) 0.2 (0.0-0.4); EOSINOPHILS % 1.6 % (0.0-6.0); HEMATOCRIT 35.4 % (34.2-44.1); HEMOGLOBIN 12.1 g/dL (12.0-16.0); LYMPHOCYTES # (AUTO) 1.5 (1.0-3.2); MEAN CORPUSCULAR HGB CONC 34.2 g/dL (31-35); MEAN CORPUSCULAR VOLUME 90.8 fL (81-99); MONOCYTES # (AUTO) 0.9 (0.2-0.8); MONOCYTES % 8.5 % (4.4-11.3); NEUTROPHILS # (AUTO) 7.9 (2.1-6.9); PLATELET COUNT 136 x10e3/uL (140-360); RED CELL DISTRIBUTION WIDTH 17.4 % (11.7-14.4)
[2020-08-17 06:20] LABS: ANION GAP 13.3 mmol/L (8-16); BLOOD UREA NITROGEN 6 mg/dL (7-26); BUN/CREATININE RATIO 9 (6-25); CALCIUM 8.1 mg/dL (8.4-10.2); CARBON DIOXIDE 23 mmol/L (22-29); CHLORIDE 106 mmol/L (98-107); CREATININE, SERUM 0.69 mg/dL (0.57-1.11); EST GLOMERULAR FILTRATION RATE > 60 ML/MIN (60-); GLUCOSE 159 mg/dL (74-118); POTASSIUM 3.3 mmol/L (3.5-5.1); SODIUM 139 mmol/L (136-145)
[2020-08-17] MEDS: PANTOPRAZOLE SOD 40 MG TABEC PO SCH (08:11)
[2020-08-17] MEDS: DICYCLOMINE HCL 10 MG CAP PO SCH ×3 (08:11→16:45)
[2020-08-17] MEDS: POTASSIUM CHLORIDE 20 MEQ TAB CR PO PRN (08:12)
[2020-08-17] MEDS: INSULIN LISPRO 100 UNIT/1 ML 3ML VIAL SQ SCH ×4 (08:30→20:22)
[2020-08-17] MEDS: METOPROLOL TARTRATE 25 MG TAB PO SCH ×2 (09:16→16:51)
[2020-08-17] MEDS: ACETAMINOPHEN/CODEINE 300MG - 30MG TAB PO PRN ×2 (10:54→18:04)
[2020-08-18] MEDS ORDERED: ZIPRASIDONE 20 MG VIAL IM PRN (02:45)
[2020-08-18] MEDS: AZTREONAM 1 GM/NS 50 ML 50 ML IV SCH ×3 (05:24→21:09)
[2020-08-18 05:29] VITALS: BP 120/61
[2020-08-18] MEDS: PANTOPRAZOLE SOD 40 MG TABEC PO SCH (07:30)
[2020-08-18] MEDS: DICYCLOMINE HCL 10 MG CAP PO SCH ×3 (07:30→16:10)
[2020-08-18] MEDS: INSULIN LISPRO 100 UNIT/1 ML 3ML VIAL SQ SCH ×4 (07:30→21:00)
[2020-08-18 07:39] VITALS: BP 127/64
[2020-08-18 08:32] VITALS: BP 127/64
[2020-08-18] MEDS: METOPROLOL TARTRATE 50 MG TAB PO SCH ×2 (09:00→16:10)
[2020-08-18 11:08] VITALS: BP 102/57
[2020-08-18] MEDS ORDERED: OLANZAPINE 5 MG TAB PO SCH (17:00)
[2020-08-18 20:00] VITALS: BP 116/54
[2020-08-18 21:00] VITALS: BP 116/54
[2020-08-18] MEDS ORDERED: MELATONIN 5 MG TABLET PO SCH (21:00)
[2020-08-19] VITALS: BP 124/62
[2020-08-19 04:00] VITALS: BP 120/69
[2020-08-19] MEDS: AZTREONAM 1 GM/NS 50 ML 50 ML IV SCH (05:56)
[2020-08-19 07:37] VITALS: BP 112/67
[2020-08-19 07:56] VITALS: BP 112/67
[2020-08-19] MEDS: DICYCLOMINE HCL 10 MG CAP PO SCH ×2 (08:48→10:52)
[2020-08-19] MEDS: PANTOPRAZOLE SOD 40 MG TABEC PO SCH (08:48)
[2020-08-19] MEDS: INSULIN LISPRO 100 UNIT/1 ML 3ML VIAL SQ SCH ×2 (08:49→11:12)
[2020-08-19] MEDS: METOPROLOL TARTRATE 50 MG TAB PO SCH (08:49)
[2020-08-19 08:53] LABS: BASOPHILS # (AUTO) 0.1 (0.0-0.1); BASOPHILS % 0.6 % (0.0-1.0); EOSINOPHILS # (AUTO) 0.2 (0.0-0.4); EOSINOPHILS % 2.3 % (0.0-6.0); HEMATOCRIT 39.5 % (34.2-44.1); HEMOGLOBIN 12.7 g/dL (12.0-16.0); LYMPHOCYTES # (AUTO) 1.3 (1.0-3.2); LYMPHOCYTES % 14.6 % (18.0-39.1); MEAN CORPUSCULAR HEMOGLOBIN 29.5 pg (28-32); MEAN CORPUSCULAR HGB CONC 32.2 g/dL (31-35); MEAN CORPUSCULAR VOLUME 91.6 fL (81-99); MONOCYTES # (AUTO) 0.9 (0.2-0.8); MONOCYTES % 9.6 % (4.4-11.3); NEUTROPHILS # (AUTO) 6.6 (2.1-6.9); NEUTROPHILS % 72.5 % (38.7-80.0); PLATELET COUNT 177 x10e3/uL (140-360); RED BLOOD COUNT 4.31 x10e6/uL (3.6-5.1); RED CELL DISTRIBUTION WIDTH 17.4 % (11.7-14.4)
[2020-08-19 09:18] LABS: ANION GAP 15.1 mmol/L (8-16); BLOOD UREA NITROGEN 10 mg/dL (7-26); BUN/CREATININE RATIO 13 (6-25); CALCIUM 8.5 mg/dL (8.4-10.2); CARBON DIOXIDE 23 mmol/L (22-29); CHLORIDE 108 mmol/L (98-107); CREATININE, SERUM 0.77 mg/dL (0.57-1.11); EST GLOMERULAR FILTRATION RATE > 60 ML/MIN (60-); GLUCOSE 196 mg/dL (74-118); POTASSIUM 4.1 mmol/L (3.5-5.1); SODIUM 142 mmol/L (136-145)
[2020-08-19] MEDS ORDERED: PNEUMOCOCCAL VACCINE POLYVALENT 23 MCG/0.5 ML VIAL IM SCH (09:20)
[2020-08-19] MEDS ORDERED: ZYPREXA5 MG PO (09:34)
[2020-08-19] MEDS ORDERED: LOPRESSOR25 MG PO (09:34)
[2020-08-19] MEDS ORDERED: MELATONIN PO (09:35)
[2020-08-19] MEDS ORDERED: CIPRO250 MG PO (09:36)
[2020-08-19] MEDS ORDERED: OMEPRAZOLE40 MG PO (09:37)
[2020-08-19] MEDS ORDERED: COLACE100 MG PO (09:37)
[2020-08-19 11:03] VITALS: BP 110/86
== END 2020-08-19 13:11 | disposition home or self-care (01) | DRG 871 ==
LOC: ER 16:40 → ERHOLD 18:54 → MED/SURG2 22:35 → OBSVTOIN 08-14 06:50
PROVIDERS: ADMIT Internal Medicine; ATTEND Internal Medicine
DX: A41.9 Sepsis, unspecified organism (principal); G92 Toxic encephalopathy; S52.502A Unspecified fracture of the lower end of left radius, initial encounter for closed fracture; E87.2 Acidosis; N39.0 Urinary tract infection, site not specified; E87.6 Hypokalemia; R33.9 Retention of urine, unspecified; R73.9 Hyperglycemia, unspecified; R00.0 Tachycardia, unspecified; I10 Essential (primary) hypertension; Z68.30 Body mass index [BMI] 30.0-30.9, adult; B96.20 Unspecified Escherichia coli [E. coli] as the cause of diseases classified elsewhere; B96.4 Proteus (mirabilis) (morganii) as the cause of diseases classified elsewhere; Z88.2 Allergy status to sulfonamides; Z88.1 Allergy status to other antibiotic agents; Z91.041 Radiographic dye allergy status; E66.9 Obesity, unspecified; E83.51 Hypocalcemia
CPT/HCPCS: 36415; 74176; 80048; 80053; 80307; 81001; 82550; 82553; 82607; 82948; 83036; 83605; 83735; 84100; 84443; 84484; 85025; 87040; 87086; 87186; 90732; 93005; 99284; G0378; J0295; J3480; J3486; J7030; J7050; J7121; U0002